=== PATIENT | female | born 1940 | race Caucasian/White ===

== ENCOUNTER 2017-06-27 15:04 | Inpatient (IN) ==
[~2017-06-27 15:04] MED LIST: *HR* Amiodarone Premix 360 MG/200 ML BAG IVC ONE; *HR* EPINEPHrine 1 MG/10 ML SYRINGE IVP ONE
--- NOTE | 2017-06-27 15:40 | Emergency Department Note ---
Disposition Clinical Impression: Rectal bleeding Anemia Qualifiers: Anemia type: unspecified type Qualified Code(s): D64.9 - Anemia, unspecified Disposition: Admitted As Inpatient Condition: Fair Referrals: Titi Garcia DO [Primary Care Provider] - Forms: ED Satisfaction Letter Time of Disposition: 17:17 GI Bleed HPI - General Chief complaint: ED Recheck/Abnormal Lab/Rx Stated complaint: rectal bleeding Time Seen by Provider: 06/27/17 15:21 Source: patient Mode of arrival: ambulatory Limitations: no limitations Nursing Notes Reviewed: Yes Vital Signs Reviewed: Yes - History of Present Illness HPI Narrative: 76-year-old female who comes in with dark tarry stools for the last several days and then bloody stools today. Saw family doctor and they apparently called the patient to come in as the hemoglobin was purported to be 7.2. Did review records she did have a colonoscopy that did show diverticular disease she also had polyps removed. She states she also had an AVM that was bleeding in the past. Pt Subjective Complaint: gross bloody stools Onset (ago): day(s) Consistency: intermittent Severity: moderate Improves with: nothing Worsens with: nothing Context: other Associated symptoms: Reports: abdominal pain (Diverticular disease mild) - Related Data Home Medications Medication Instructions Recorded Confirmed Baclofen [Lioresal] 10 mg PO TID PRN 05/10/17 05/10/17 Duloxetine HCl [Cymbalta] 120 mg PO DAILY 05/10/17 05/10/17 Metoprolol Succinate [Metoprolol 25 mg PO DAILY 05/10/17 05/10/17 Succinate] Oxybutynin Chloride [Ditropan Xl] 10 mg PO DAILY 05/10/17 05/10/17 Simvastatin [Zocor] 20 mg PO HS 05/10/17 05/10/17 hydroCHLOROthiazide 25 mg PO DAILY 05/10/17 05/10/17 [Hydrochlorothiazide] Allergies Allergy/AdvReac Type Severity Reaction Status Date / Time pregabalin [From Lyrica] Allergy Mild Confusion Verified 05/10/17 11:21 gabapentin Allergy Itching Verified 05/10/17 11:21 All systems ED: reviewed and negative except as stated. Constitutional: Denies: fever, chills, weakness, weight change Eyes: Denies: eye pain, eye discharge, vision change ENT ED: Denies: ear pain, throat pain, dental pain, hearing loss, epistaxis, congestion, dysphagia Cardiovascular: Denies: chest pain, palpitations, dyspnea on exertion, edema, syncope Respiratory: Denies: cough, dyspnea, wheezes, hemoptysis, stridor Gastrointestinal: Reports: abdominal pain. Denies: nausea, vomiting, diarrhea, constipation, hematemesis, melena, hematochezia Genitourinary: Denies: dysuria, frequency, hematuria, discharge Musculoskeletal: Denies: back pain, neck pain, arthralgia, myalgia Integumentary: Denies: rash, abrasion, lesions Neurological: Denies: headache, weakness, numbness, paresthesias, confusion, abnormal gait, vertigo Psychiatric: Denies: anxiety, depression, suicidal thoughts, homicidal thoughts , auditory hallucinations, visual hallucinations Endocrine: Denies: fatigue Hematological/Lymphatic: Denies: easy bleeding, easy bruising Allergic/Immunologic: Denies: facial swelling, urticaria Past Medical History - Past Medical History Medical history: Reports: COPD, coronary artery disease, fibromyalgia, GERD, hyperlipidemia, hypertension, osteoporosis Surgical history: Reports: heart valve replacement, hysterectomy, orthopedic, other Psychiatric history: Reports: anxiety, depression - Social History Smoking Status: Former smoker Alcohol use: Reports: none Drug use: Reports: none Physical Exam - General Limitations: no limitations General appearance: alert, in no apparent distress - Head Head exam: atraumatic, normocephalic, normal inspection - Eye Eye exam: Present: normal appearance, PERRL, EOMI - ENT ENT exam: normal exam, normal oropharynx, mucous membranes moist - Neck Neck exam: Present: normal inspection, full ROM, trachea midline - Chest Chest inspection: Present: normal inspection, symmetric chest wall rise - Respiratory Respiratory exam: Present: normal lung sounds bilaterally - Cardiovascular Cardiovascular exam: Present: regular rate, normal rhythm, normal heart sounds - Abdominal Exam Abdominal exam: Present: tenderness. Absent: guarding, rebound Abdominal tenderness: Present: LLQ - Rectal Exam Rectal exam: Present: normal rectal tone, bloody stool - Extremities Exam Extremities exam: Present: normal inspection, full ROM. Absent: tenderness, pedal edema - Expanded Lower Extremity Exam Neurovascular/Tendon exam: Absent: motor deficit, sensory deficit, tendon deficit Gait: observed and normal - Back Exam Back exam: Present: normal inspection, full ROM. Absent: tenderness - Neurological Exam Neurological exam: Present: alert, oriented X3 - Psychiatric Psychiatric exam: Present: normal affect, normal mood - Skin Skin exam: Present: warm, dry, intact, normal color Course - Reevaluation(s) Reevaluation #1: 76-year-old with a history of diverticulosis and previous AVM bleeding comes in with dark tarry stools or couple weeks and some blood today. Hemoglobin couple days ago 7.2 today was 6.6. We'll type and cross her for 2 units consultation obtained with the endoscopy/surgery they will see the patient in consultation patient will be admitted to the hospitalist. Time: 17:50 - Consultations Consultation #1: Discussed with , who will see the patient in consult. Time: 17:49 Consultation #2: Discussed with Dr. Pickard. Time: 17:49 Vital Signs Temperature 98.4 F 06/27/17 15:18 Pulse Rate 79 06/27/17 15:18 Respiratory Rate 18 06/27/17 15:18 Blood Pressure 104/67 06/27/17 15:18 O2 Sat by Pulse Oximetry 97 06/27/17 15:18 Temperature 98.4 F 06/27/17 15:18 Pulse Rate 78 06/27/17 17:18 Respiratory Rate 16 06/27/17 17:18 Blood Pressure 106/46 06/27/17 17:18 O2 Sat by Pulse Oximetry 96 06/27/17 17:18 Oxygen Delivery Oxygen Delivery Room Air GI Bleed - Lab Data Lab results reviewed: Yes I reviewed the patient's lab results. Result diagrams: 06/27/17 15:58 06/27/17 15:58 Lab Results 06/27/17 06/27/17 06/27/17 Range/Units 15:40 15:58 15:58 WBC 6.4 (4.3-11.1) K/mcL RBC 2.32 L (3.82-4.97) M/mcL Hgb 6.6 L (11.5-15.4) g/dL Hct 21.2 L (35.3-44.9) % MCV 91.4 (83.0-100.0) fL MCH 28.4 (28.0-33.3) pg MCHC 31.1 L (31.6-35.5) g/dL RDW 17.3 H (11.5-14.5) % Plt Count 144 (140-400) K/mcL MPV 10.6 (9.4-12.4) fL Immature Gran % 0.9 (0-4) % Seg Neutrophils % 61.5 % Lymphocytes % 26.9 % Monocytes % 9.6 % Eosinophils % 0.8 % Basophils % 0.3 % Neutrophils # 3.9 (1.6-8.9) K/mcL Lymphocytes # 1.7 (0.6-4.6) K/mcL Monocytes # 0.6 (0.0-1.3) K/mcL Eosinophils # 0.1 (0.0-0.6) K/mcL Basophils # 0.0 (0.0-0.2) K/mcL Nucleated RBCs/100 WBC 0.3 H (0) /100 WBC PT 12.6 H (9.4-12.1) Seconds INR 1.2 APTT 30.8 (26.0-36.0) Seconds Sodium (136-145) mEq/L Potassium (3.5-5.1) mEq/L Chloride (98-107) mEq/L Carbon Dioxide (23-29) mEq/L BUN (8-23) mg/dL Creatinine (0.60-1.20) mg/dL Est GFR ( Amer) (> 60) Est GFR (Non-Af Amer) (> 60) BUN/Creatinine Ratio (6-26) Glucose (70-105) mg/dL Calculated Osmolality (280-300) Calcium (8.6-10.3) mg/dL Stool Occult Blood Positive A (Negative) Specimen Rejected 06/27/17 06/27/17 Range/Units 15:58 15:58 WBC (4.3-11.1) K/mcL RBC (3.82-4.97) M/mcL Hgb (11.5-15.4) g/dL Hct (35.3-44.9) % MCV (83.0-100.0) fL MCH (28.0-33.3) pg MCHC (31.6-35.5) g/dL RDW (11.5-14.5) % Plt Count (140-400) K/mcL MPV (9.4-12.4) fL Immature Gran % (0-4) % Seg Neutrophils % % Lymphocytes % % Monocytes % % Eosinophils % % Basophils % % Neutrophils # (1.6-8.9) K/mcL Lymphocytes # (0.6-4.6) K/mcL Monocytes # (0.0-1.3) K/mcL Eosinophils # (0.0-0.6) K/mcL Basophils # (0.0-0.2) K/mcL Nucleated RBCs/100 WBC (0) /100 WBC PT (9.4-12.1) Seconds INR APTT (26.0-36.0) Seconds Sodium 137 (136-145) mEq/L Potassium 2.4 L* (3.5-5.1) mEq/L Chloride 99 (98-107) mEq/L Carbon Dioxide 29 (23-29) mEq/L BUN 18 (8-23) mg/dL Creatinine 1.24 H (0.60-1.20) mg/dL Est GFR ( Amer) 51 L (> 60) Est GFR (Non-Af Amer) 42 L (> 60) BUN/Creatinine Ratio 15 (6-26) Glucose 168 H (70-105) mg/dL Calculated Osmolality 290 (280-300) Calcium 8.7 (8.6-10.3) mg/dL Stool Occult Blood (Negative) Specimen Rejected Volume - Radiology Data Radiology results reviewed: Yes I reviewed the patient's radiology results. Abdomen/Pelvis CT 06/27/17 15:51 IMPRESSION: No evidence of acute abnormality in the abdomen or pelvis. Cirrhotic morphology of the liver. There is no ascites. Cholelithiasis. Colonic diverticulosis without evidence of diverticulitis. D/ / Oleksandr Do MD / Oleksandr Do MD Interpreting Provider: Oleksandr oD MD - EKG Data EKG attestation: Yes I reviewed and interpreted this EKG. EKG shows normal: sinus rhythm Rate: normal Rhythm: NSR [place]/QRS: LBBB When compared to previous EKG there are: no significant changes (07/05/2015) Interpretation: no acute changes Critical Care Time Critical Care Time: Yes Total Critical Care Time: 30 Attestation: The high probability of a clinically significant, sudden or life threatening deterioration of the [digestive] system(s) required my full and direct attention , intervention and personal management. The aggregate critical care time was [30 ] minutes. This time is in addition to time spent performing reported procedures but includes the following: [x] Data Review and interpretation [x] Patient assessment and monitoring of vital signs [x] Documentation [x] Medication orders and management
[2017-06-27 16:13] LABS: Basophils % 0.3 %; Eosinophils # 0.1 K/mcL (0.0-0.6); Eosinophils % 0.8 %; Hematocrit 21.2 % (35.3-44.9); Immature Granulocytes % 0.9 % (0-4); Lymphocytes # 1.7 K/mcL (0.6-4.6); Lymphocytes % 26.9 %; Mean Corpuscular HGB Conc 31.1 g/dL (31.6-35.5); Mean Corpuscular Hemoglobin 28.4 pg (28.0-33.3); Mean Corpuscular Volume 91.4 fL (83.0-100.0); Mean Platelet Volume 10.6 fL (9.4-12.4); Monocytes # 0.6 K/mcL (0.0-1.3); Monocytes % 9.6 %; Neutrophils # 3.9 K/mcL (1.6-8.9); Nucleated Red Blood Cells 0.3 /100 WBC (0); Platelet Count 144 K/mcL (140-400); Red Blood Count 2.32 M/mcL (3.82-4.97); Red Cell Distribution Width 17.3 % (11.5-14.5); Segmented Neutrophils % 61.5 %
[2017-06-27 16:18] LABS: INR 1.2; Prothrombin Time 12.6 Seconds (9.4-12.1)
[2017-06-27 16:21] LABS: Activated Partial Thrombo Time 30.8 Seconds (26.0-36.0)
[2017-06-27 16:31] LABS: Hemoglobin 6.6 g/dL (11.5-15.4)
[2017-06-27 16:33] LABS: Calcium 8.7 mg/dL (8.6-10.3); Potassium 2.4 mEq/L (3.5-5.1)
[2017-06-27] MEDS ORDERED: 0.9 % Sodium Chloride 1,000 ML ONE (16:59)
[2017-06-27] MEDS ORDERED: Potassium Chloride Elixir 20 MEQ/15 ML UDC PO ONE (17:28)
[2017-06-27] MEDS ORDERED: 0.9 % Sodium Chloride 500 ML IVC ONE (17:35)
[2017-06-27] MEDS ORDERED: Acetaminophen 325 MG TABLET PO PRN (19:37)
[2017-06-27] MEDS ORDERED: Ondansetron 4 MG/2 ML VIAL IVP PRN (19:37)
[2017-06-27] MEDS ORDERED: Naloxone 0.4 MG/ML INJ IVP PRN (19:37)
[2017-06-27] MEDS ORDERED: Potassium Chloride 40 MEQ, Lidocaine 1% 2 ML in D5% in Water 500 ML IVPB ONE (19:43)
--- NOTE | 2017-06-27 19:54 | Internal Med History&Physical ---
Date of Encounter: 06/27/17 Time of Encounter: 19:00 Assessment and Plan (1) Esophageal dysmotility Current visit: Yes Status: Acute Pt has recent barium swallow evaluation shows Severe esophageal dysmotility. Keep NPO now, consult speech therapy prior to start diet. (2) HTN (hypertension) Current visit: Yes Status: Acute BP is stable, hold HTN med due to acute GI bleed. Qualifiers: Hypertension type: essential hypertension Qualified Code(s): I10 - Essential (primary) hypertension (3) CAD (coronary artery disease) Current visit: Yes Status: Acute Stable, will resume home meds as pt resume diet. Qualifiers: Coronary Disease-Associated Artery/Lesion type: [place] artery [place] vs. transplanted heart: [place] heart Associated angina: without angina Qualified Code(s): I25.10 - Atherosclerotic heart disease of [place] coronary artery without angina pectoris (4) Hypokalemia Current visit: Yes Status: Acute Will give supplement and monitor potassium level (5) Right upper quadrant abdominal pain Current visit: Yes Status: Acute Pt said she has gall stone. Will repeat US liver/gall bladder to evaluate the status. Pt has no fever, leukocytosis, or jaundice now. (6) DVT prophylaxis Current visit: Yes Status: Acute EPCD, no AC due to GI bleed (7) Anemia Current visit: Yes Status: Acute Due to GI bleed. Will give 2 units of PRBC. Qualifiers: Anemia type: unspecified type Qualified Code(s): D64.9 - Anemia, unspecified (8) Rectal bleeding Current visit: Yes Status: Acute Place pt on NPO, IVF, iv PPI. Surgical consult informed by ER. - Check vitals every 2 hours - H/H every 6 hours. (9) ARISTIDES (acute kidney injury) Current visit: Yes Status: Acute Mildly elevated Cr from baseline, probably due to GI bleed, give IVF and f/u renal function. Internal Medicine - H&P: HPI Chief complaint: Rectal bleed Admitted From: Home Plans for Post Hospital Care: Home History of present illness: Ms. Chilel is a 76 year old female with hx of HTN, s/p bio aortic valve replacement, CAD s/p stent, Hx of AVM and GI bleed, present to ER for rectal bleed for several months. Pt said she noticed fresh bleed per rectal but thought it is due to hemorrhoid. Pt has swallowing choking symptoms and had barium study 4 days ago. She found blood in stool although the stool color turns white due to barium. Pt has mild dizziness and exertional SOB. She also has abd cramping sometimes. In ER, she was found Hgb 6.6, dropped from 11.5 in Apr 2017, FOBT positive. Pt was admitted as GI bleed. Past Med Surg Social Fam HX - Past Medical History Medical history: COPD, coronary artery disease, fibromyalgia, GERD, hyperlipidemia, hypertension, osteoporosis Psychiatric history: anxiety, depression - Past Surgical History Surgical History: heart valve replacement, hysterectomy, orthopedic, other - Social History Smoking Status: Former smoker Alcohol use: none Drug use: none - Family History Mother History Unknown: Yes Internal Medicine - H&P: Meds Baclofen [Lioresal] 10 mg PO TID PRN 05/10/17 [History] Duloxetine HCl [Cymbalta] 120 mg PO DAILY 05/10/17 [History] Metoprolol Succinate [Metoprolol Succinate] 25 mg PO DAILY 05/10/17 [History] Oxybutynin Chloride [Ditropan Xl] 10 mg PO DAILY 05/10/17 [History] Simvastatin [Zocor] 20 mg PO HS 05/10/17 [History] hydroCHLOROthiazide [Hydrochlorothiazide] 25 mg PO DAILY 05/10/17 [History] Aspirin 06/27/17 [History] 3 Allergy/AdvReac Type Severity Reaction Status Date / Time pregabalin [From Lyrica] Allergy Mild Confusion Verified 05/10/17 11:21 gabapentin Allergy Itching Verified 05/10/17 11:21 All Systems PM: A 10-system review of systems was performed and is negative for pertinent findings except as documented above in the HPI. - Constitutional Vitals: Temp Pulse Resp BP Pulse Ox 98.5 F 81 14 126/71 98 06/27/17 19:22 06/27/17 19:22 06/27/17 19:22 06/27/17 19:22 06/27/17 19:22 General appearance: Present: A&O X 3, no acute distress, answers questions appropriately - Head Head exam: Present: atraumatic, normocephalic - Eye Eye exam: Present: PERRL, conjuntiva pink, sclera anicteric Pupils: Present: PERRL - Neck Neck exam general surgery: Present: supple, trachea midline. Absent: lymphadenopathy - Respiratory Respiratory exam: Present: CTAB. Absent: accessory muscle use, rales, rhonchi, wheezes - Cardiovascular Cardiovascular exam: Present: RRR, +S1, +S2. Absent: diastolic murmur, gallop, rubs, systolic murmur - GI/Abdominal GI/Abdominal exam: Present: normal bowel sounds, soft, tenderness (Mild RUQ tenderness w/o rebound), no peritoneal signs. Absent: distended - Extremities Exam Extremities exam: Present: warm, radial pulses palpable and symmetrical. Absent : calf tenderness, cyanotic, pedal edema - Neurological Exam Neurological exam: Present: CN II-XII intact, oriented X3, no focal deficits. Absent: pronater drift, facial droop, speech deficit - Skin Skin exam: Present: dry, intact Internal Med - H&P Results - Labs CBC & Chem 7: 06/27/17 15:58 06/27/17 15:58 - EKG Data -: EKG Interpreted by Myself EKG shows normal: sinus rhythm (LBBB) - EKG Data Prior EKG available for review: yes When compared to previous EKG: there is no significant change
[2017-06-27 20:17] LABS: Hematocrit 19.6 % (35.3-44.9)
[2017-06-27] MEDS: 0.9 % Sodium Chloride w KCl 20 MEQ/1,000 ML MLS IVC SCH (22:30)
[2017-06-27] MEDS: *HR* HYDROcodone/Acet 5/325 mg TABLET PO PRN (22:32)
[2017-06-28] MEDS ORDERED: 0.9 % Sodium Chloride 250 ML ONE ×2 (00:02→04:05)
[2017-06-28] MEDS: *HR* HYDROcodone/Acet 5/325 mg TABLET PO PRN ×4 (01:45→22:45)
[2017-06-28] MEDS ORDERED: *HR* Morphine 2 MG/ML SYRINGE IVP ONE (02:27)
[2017-06-28] MEDS ORDERED: Ipratropium/Albuterol Neb 3 ML IH ONE (02:42)
[2017-06-28] MEDS ORDERED: Furosemide 20 MG/2 ML VIAL IVP ONE (02:42)
[2017-06-28] MEDS: Pantoprazole 40 MG VIAL IVP SCH ×2 (05:57→19:50)
[2017-06-28] MEDS: Potassium Chloride Elixir 20 MEQ/15 ML UDC PO SCH ×2 (08:35→12:19)
[2017-06-28 08:37] LABS: Basophils % 0.5 %; Eosinophils % 0.7 %; Hematocrit 28.2 % (35.3-44.9); Immature Granulocytes % 0.8 % (0-4); Lymphocytes % 16.3 %; Mean Corpuscular HGB Conc 31.9 g/dL (31.6-35.5); Mean Corpuscular Hemoglobin 28.5 pg (28.0-33.3); Mean Corpuscular Volume 89.2 fL (83.0-100.0); Monocytes # 0.5 K/mcL (0.0-1.3); Neutrophils # 4.4 K/mcL (1.6-8.9); Platelet Count 120 K/mcL (140-400); Red Blood Count 3.16 M/mcL (3.82-4.97); Red Cell Distribution Width 15.9 % (11.5-14.5); Segmented Neutrophils % 72.7 %
--- NOTE | 2017-06-28 08:48 | General Surgery Consult Note ---
Date of Encounter: 06/28/17 Time of Encounter: 08:46 History of Present Illness Consult date: 06/28/17 Reason for consult: other (GI bleed) Requesting physician: Savage Almanzar History of present illness: Ms. Chilel is a 76 year old white female who presented to ED for rectal bleed for several months but recently noticed bright red blood per rectum and attributed it to hemorrhoid. Past Med Surg Social Fam HX - Past Medical History Medical history: COPD, coronary artery disease, fibromyalgia, GERD, hyperlipidemia, hypertension, osteoporosis Psychiatric history: anxiety, depression - Past Surgical History Surgical History: heart valve replacement, hysterectomy, orthopedic, other - Social History Smoking Status: Former smoker Alcohol use: none Drug use: none - Family History Mother History Unknown: Yes Living Status: Age at : 50 Cause of : CT Father Living Status: Age at : 83 Medications and Allergies Baclofen [Lioresal] 10 mg PO TID PRN 05/10/17 [History] Duloxetine HCl [Cymbalta] 120 mg PO DAILY 05/10/17 [History] Metoprolol Succinate [Metoprolol Succinate] 25 mg PO DAILY 05/10/17 [History] Oxybutynin Chloride [Ditropan Xl] 10 mg PO DAILY 05/10/17 [History] Simvastatin [Zocor] 20 mg PO HS 05/10/17 [History] hydroCHLOROthiazide [Hydrochlorothiazide] 25 mg PO DAILY 05/10/17 [History] Aspirin 06/27/17 [History] 3 Allergy/AdvReac Type Severity Reaction Status Date / Time pregabalin [From Lyrica] Allergy Mild Confusion Verified 05/10/17 11:21 gabapentin Allergy Itching Verified 05/10/17 11:21 Review of Systems All systems PM: A 10-system review of systems was performed and is negative for pertinent findings except as documented above in the HPI. General Surgery Exam Initial Vital Signs Temp Pulse Resp BP Pulse Ox 98.4 F 79 18 104/67 97 06/27/17 15:18 06/27/17 15:18 06/27/17 15:18 06/27/17 15:18 06/27/17 15:18 Exam Initial Vital Signs Temp Pulse Resp BP Pulse Ox 98.4 F 79 18 104/67 97 06/27/17 15:18 06/27/17 15:18 06/27/17 15:18 06/27/17 15:18 06/27/17 15:18 Results - Labs 06/27/17 20:09 06/27/17 15:58 Abnormal lab results RBC 2.32 M/mcL (3.82-4.97) L 06/27/17 15:58 Hgb 6.0 g/dL (11.5-15.4) L* 06/27/17 20:09 Hct 19.6 % (35.3-44.9) L 06/27/17 20:09 MCHC 31.1 g/dL (31.6-35.5) L 06/27/17 15:58 RDW 17.3 % (11.5-14.5) H 06/27/17 15:58 Nucleated RBCs/100 WBC 0.3 /100 WBC (0) H 06/27/17 15:58 PT 12.6 Seconds (9.4-12.1) H 06/27/17 15:58 Potassium 2.4 mEq/L (3.5-5.1) L* 06/27/17 15:58 Creatinine 1.24 mg/dL (0.60-1.20) H 06/27/17 15:58 Est GFR ( Amer) 51 (> 60) L 06/27/17 15:58 Est GFR (Non-Af Amer) 42 (> 60) L 06/27/17 15:58 Glucose 168 mg/dL (70-105) H 06/27/17 15:58 POC Glucose 165 (58-89) H 06/28/17 05:55 Stool Occult Blood Positive (Negative) A 06/27/17 15:40 All other labs normal. Consult Discharge Plan - Plan Referrals: Titi Garcia DO [Primary Care Provider] -
[2017-06-28 09:22] LABS: BUN/Creatinine Ratio 14 (6-26); Blood Urea Nitrogen 15 mg/dL (8-23); Calcium 8.2 mg/dL (8.6-10.3); Carbon Dioxide 25 mEq/L (23-29); Chloride 106 mEq/L (98-107); Glucose 142 mg/dL (70-105); Magnesium 1.6 mg/dL (1.6-2.6); Osmolality,Calculated 293 (280-300); Potassium 2.9 mEq/L (3.5-5.1); Sodium 140 mEq/L (136-145); eGFR For African Americans > 60 (> 60); eGFR For Non-African Americans 51 (> 60)
--- NOTE | 2017-06-28 09:47 | Electrocardiograph Report ---
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
[2017-06-28 12:41] LABS: Basophils % 0.3 %; Eosinophils % 0.5 %; Hematocrit 28.3 % (35.3-44.9); Hemoglobin 9.1 g/dL (11.5-15.4); Immature Granulocytes % 1.3 % (0-4); Lymphocytes # 0.7 K/mcL (0.6-4.6); Lymphocytes % 10.7 %; Mean Corpuscular HGB Conc 32.2 g/dL (31.6-35.5); Mean Corpuscular Hemoglobin 28.8 pg (28.0-33.3); Mean Corpuscular Volume 89.6 fL (83.0-100.0); Monocytes # 0.4 K/mcL (0.0-1.3); Monocytes % 6.1 %; Neutrophils # 4.9 K/mcL (1.6-8.9); Nucleated Red Blood Cells 0.3 /100 WBC (0); Platelet Count 112 K/mcL (140-400); Red Blood Count 3.16 M/mcL (3.82-4.97); Red Cell Distribution Width 16.3 % (11.5-14.5); Segmented Neutrophils % 81.1 %
[2017-06-28] MEDS ORDERED: ALPRAZolam 0.25 MG TABLET PO PRN (12:46)
[2017-06-28] MEDS: 0.9 % Sodium Chloride w KCl 20 MEQ/1,000 ML MLS IVC SCH (12:56)
[2017-06-28 12:58] LABS: BUN/Creatinine Ratio 13 (6-26); Blood Urea Nitrogen 14 mg/dL (8-23); Calcium 8.6 mg/dL (8.6-10.3); Carbon Dioxide 25 mEq/L (23-29); Chloride 106 mEq/L (98-107); Glucose 168 mg/dL (70-105); Magnesium 1.7 mg/dL (1.6-2.6); Osmolality,Calculated 296 (280-300); Potassium 3.2 mEq/L (3.5-5.1); Sodium 141 mEq/L (136-145); eGFR For African Americans > 60 (> 60); eGFR For Non-African Americans 51 (> 60)
--- NOTE | 2017-06-28 13:20 | Anesthesia Evaluation PreOp ---
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 (depression) Other Medical History: Renal (ARISTIDES), GERD Anesthesia History: No Prior Anesthetic Complications, Past Anesthesia (Heart valve replacement( AVR), GEO, ortho) Alcohol Use: none Drug use: none Medications and Allergies Baclofen [Lioresal] 10 mg PO TID PRN 05/10/17 [History] Duloxetine HCl [Cymbalta] 120 mg PO DAILY 05/10/17 [History] Metoprolol Succinate [Metoprolol Succinate] 25 mg PO DAILY 05/10/17 [History] Oxybutynin Chloride [Ditropan Xl] 10 mg PO DAILY 05/10/17 [History] Simvastatin [Zocor] 20 mg PO HS 05/10/17 [History] hydroCHLOROthiazide [Hydrochlorothiazide] 25 mg PO DAILY 05/10/17 [History] Aspirin Enteric Coated [Aspirin EC] 81 mg PO DAILY 06/27/17 [History] 3 Allergy/AdvReac Type Severity Reaction Status Date / Time pregabalin [From Lyrica] Allergy Mild Confusion Verified 05/10/17 11:21 gabapentin Allergy Itching Verified 05/10/17 11:21 - Meds/Allergy Pre-op Review Medications Reviewed: Yes Allergies Reviewed: Yes Beta Blockers on Current Med List: No Anesthesia Results - Labs 06/28/17 12:21 06/28/17 12:21 - Imaging Additional studies: echo: Impressions: Normal left ventricular systolic function, LVEF 60%. Moderate concentric left ventricular hypertrophy. Mild left ventricular diastolic dysfunction. Normal right ventricular size and function. Mildly dilated left atrium. Normal bioprosthetic aortic valve function. No evidence of stenosis or regurgitation. Moderate mitral annular calcification. Mild mitral stenosis. No evidence of pulmonary hypertension. Anesthesia Exam Selected Entries 06/28/17 07:04 Temperature 98.7 F Pulse Rate 76 Respiratory Rate 20 Blood Pressure 145/76 Blood Pressure Mean 99 O2 Sat by Pulse Oximetry 92 Weight: 83kg NPO (# of Hours): 8 - HEENT Pupil (Motor): EOMI Mallampati: II Teeth: Edentulous Oral Opening: Greater than 3 - FARM MANAGEMENT SUPERVISOR LOC: Oriented FARM MANAGEMENT SUPERVISOR Motor: Normal RUE, Normal LUE, Normal RLE, Normal LLE, Normal Face FARM MANAGEMENT SUPERVISOR Sensory: Normal: RUE, LUE, RLE, LLE, Face - Cardiac Rhythm: Regular Murmur: None - Pulmonary Breath Sounds: bilateral Clear Anesthesia Assess/Plan ASA Score: 3 Modified [place] Scale for Level of Consciousness: Cooperative, oriented, and tranquil Anesthetic Plan: MAC Monitoring Plan: Standard Monitors Recovery Plan: PACU (agrees to MAC)
[2017-06-28] MEDS ORDERED: *HR* Propofol 200 MG/20 ML VIAL IVP ONE ×2 (14:28→14:51)
[2017-06-28] MEDS ORDERED: Lidocaine -MPF 2% 2 ML VIAL ONE (14:28)
--- NOTE | 2017-06-28 15:57 | Internal Med Progress Note ---
Date of Encounter: 06/28/17 Time of Encounter: 15:55 - Assessment and plan (1) Lower GI bleed Current Visit: Yes Status: Acute Assessment and plan: Patient was anemic with hemoglobin <7 on admission, status post 2 units PRBC. GI following, patient currently in EGD. Will await results and recommendations. Continue to monitor H&H q6H and transfuse as needed. Currently patient is hemodynamically stable. (2) Hypokalemia Current Visit: Yes Status: Acute Assessment and plan: Patient currently NPO, we are giving exception of KCL elixer. Will continue to supplement. Keep patient on telemetry and monitor for abnormalities. Placing Kcl in IV fluids as well. (3) ARISTIDES (acute kidney injury) Current Visit: Yes Status: Acute Assessment and plan: Improved, likely was from hypoperfusion. (4) Anemia Current Visit: Yes Status: Acute Qualifiers: Anemia type: unspecified type Qualified Code(s): D64.9 - Anemia, unspecified (5) Right upper quadrant abdominal pain Current Visit: Yes Status: Acute Assessment and plan: RUQ showed cholelithiasis without evidence of cholecystitis. Has some findings suggestive of liver cirrhosis. (6) HTN (hypertension) Current Visit: Yes Status: Acute Qualifiers: Hypertension type: essential hypertension Qualified Code(s): I10 - Essential (primary) hypertension (7) Esophageal dysmotility Current Visit: Yes Status: Acute Assessment and plan: Barium study for dysphagia. (8) CAD (coronary artery disease) Current Visit: Yes Status: Acute Qualifiers: Coronary Disease-Associated Artery/Lesion type: [place] artery [place] vs. transplanted heart: [place] heart Associated angina: without angina Qualified Code(s): I25.10 - Atherosclerotic heart disease of [place] coronary artery without angina pectoris (9) COPD (chronic obstructive pulmonary disease) Current Visit: Yes Status: Acute Assessment and plan: Duo nebs as needed. Qualifiers: COPD type: unspecified COPD Qualified Code(s): J44.9 - Chronic obstructive pulmonary disease, unspecified (10) DVT prophylaxis Current Visit: Yes Status: Acute - Subjective Interval history: Patient presented for rectal bleeding, SOB, and light headedness. She does complain of RUQ tenderness. She has been trasnfused 2 units of PRBC after hemoglobin found to be 6.6. Currently patient states she feels a little better but still lightheaded. She denies chest pain. - Constitutional Vitals: Temp Pulse Resp BP Pulse Ox 98.7 F 89 18 151/67 98 06/28/17 07:04 06/28/17 14:22 06/28/17 14:22 06/28/17 14:22 06/28/17 14:22 General appearance: Present: A&O X 3, no acute distress, answers questions appropriately Exam: CVS: RRR Lungs: CTAB Abd; soft, + RUQ tenderness, non-distended, non-rigid. Ext: no edema Internal Medicine: Result - Labs CBC & Chem 7: 06/28/17 12:21 06/28/17 12:21 Labs: Short CBC 06/27/17 06/28/17 06/28/17 Range/Units 20:09 08:10 12:21 WBC 6.0 6.1 (4.3-11.1) K/mcL Hgb 6.0 L* 9.0 L D 9.1 L (11.5-15.4) g/dL Hct 19.6 L 28.2 L 28.3 L (35.3-44.9) % Plt Count 120 L 112 L (140-400) K/mcL Neutrophils # 4.4 4.9 (1.6-8.9) K/mcL BMP 06/28/17 06/28/17 08:10 12:21 Sodium 140 141 Potassium 2.9 L 3.2 L Chloride 106 106 Carbon Dioxide 25 25 BUN 15 14 Creatinine 1.04 1.04 Glucose 142 H 168 H Calcium 8.2 L 8.6 - ABG Interpretation ABG results: PT/INR, D-dimer PT 12.6 Seconds (9.4-12.1) H 06/27/17 15:58 - Impressions Impressions Abdomen Ultrasound 06/28/17 13:00 IMPRESSION: 1. Cholelithiasis. No evidence of cholecystitis. 2. Diffusely heterogeneous liver echotexture suggestive of cirrhosis. 3. Multiple renal hypoechoic masses, possibly complicated or complex cysts. 4. Right adrenal adenoma. D/ / 06/28/2017 14:08:55 Guero Mares MD / onel Interpreting Provider: Guero Mares MD Consult Discharge Plan - Plan Referrals: Titi Garcia DO [Primary Care Provider] -
[2017-06-28] MEDS: Ipratropium/Albuterol Neb 3 ML IH SCH ×3 (16:38→23:19)
--- NOTE | 2017-06-28 21:52 | Gastroenterology Consult Note ---
Date of Encounter: 06/28/17 Time of Encounter: 13:00 - Assessment and plan (1) Anemia Current Visit: Yes Status: Acute Assessment and plan: pt with acute on ch anemia . Hb was 8.5 09/23/15 and was 11.5 on 04/22/17 but now down to 6. Does has Hx of rectal bleeding but for many months even before C- scope. Doubt has polypectomy bleed as colon was > 6 weeks ago . 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 Pt to f/u with us as out pt - Time Spent With Patient Total time spent is greater than 50% in coordination of care (as documented) at patient's floor/unit and/or counseling patient: GI History of Present Illness - Data of Consult Consult date: 06/28/17 Requesting Physician: Yamil Larkin MD - Consult Narrative Reason for consult: Anemia, Blood in stool History of present illness: Ms. Chilel is a 76 year old female with hx of HTN, s/p bio aortic valve replacement, CAD s/p stent, Hx of AVM and GI bleed, present to ER for rectal bleed for several months. Had a colon done by Dr Linares In April with removal of 6 mm of polyp. Per pt no diff or change in her black stool that she has on and off. No abd pain. Was felling symtomatic due to anemia lately Past Med Surg Social Fam HX - Past Medical History Medical history: COPD, coronary artery disease, fibromyalgia, GERD, hyperlipidemia, hypertension, osteoporosis Psychiatric history: anxiety, depression - Past Surgical History Surgical History: heart valve replacement, hysterectomy, orthopedic, other - Social History Smoking Status: Former smoker Alcohol use: none Drug use: none - Family History Mother History Unknown: Yes Living Status: Age at : 50 Cause of : SD Father Living Status: Age at : 83 Review of Systems: GI: as per [place] GENERAL: some chills EYES: denies yellow discoloration CARDIO: palpitations with exertions RESP: had Shortness of breath with exertion : denies change in color of urine NEURO: generalized weakness HEME: Denies any bruising MS: denies joint pain, joint swelling or back pain. DERM: denies rash or itching - Constitutional Vitals: Temp Pulse Resp BP Pulse Ox 98.7 F 98 16 156/76 97 06/28/17 20:59 06/28/17 20:59 06/28/17 20:59 06/28/17 20:59 06/28/17 20:59 CONSTITUTIONAL:~alert, no acute distress.~HEAD:~normocephalic.~EYES:~no jaundice.~NECK:~no obvious swelling.~HEART:~regular rate and rhythm, positive murmur with added sound of artificial valve.~LUNGS:~bilateral good air entry.~ ABDOMEN:~non distended, soft, non tander, no masses pulpable, no organomegaly.~ RECTAL EXAM:~No mass, stool are brown.~EXTREMITIES:~no clubbing, cyanosis or edema.~SKIN:~no stigmata of chronic liver disease.~NEUROLOGIC:~no obvious focal defect.~~~~ Results - Labs CBC & Chem 7: 06/28/17 12:21 06/28/17 12:21 Labs: Last Result Calcium 8.6 mg/dL (8.6-10.3) 06/28/17 12:21 Stool Occult Blood Positive (Negative) A 06/27/17 15:40 Entire Visit Hgb 9.1 g/dL (11.5-15.4) L 06/28/17 12:21 Hct 28.3 % (35.3-44.9) L 06/28/17 12:21 PT 12.6 Seconds (9.4-12.1) H 06/27/17 15:58 - ABG ABG results: PT/INR, D-dimer PT 12.6 Seconds (9.4-12.1) H 06/27/17 15:58 - Impressions Impressions Abdomen Ultrasound 06/28/17 13:00 IMPRESSION: 1. Cholelithiasis. No evidence of cholecystitis. 2. Diffusely heterogeneous liver echotexture suggestive of cirrhosis. 3. Multiple renal hypoechoic masses, possibly complicated or complex cysts. 4. Right adrenal adenoma. D/ / 06/28/2017 14:08:55 Guero Mares MD / onel Interpreting Provider: Guero Mares MD Consult Discharge Plan - Plan Referrals: Titi Garcia DO [Primary Care Provider] -
[2017-06-28] MEDS ORDERED: ALPRAZolam 0.5 MG TABLET PO PRN (22:10)
[2017-06-28] MEDS ORDERED: Melatonin 3 MG TABLET PO PRN (22:10)
[2017-06-29] MEDS: *HR* Morphine 2 MG/ML SYRINGE IVP PRN (04:16)
[2017-06-29] MEDS: Ipratropium/Albuterol Neb 3 ML IH SCH ×6 (04:30→23:36)
[2017-06-29 05:24] LABS: Basophils % 0.2 %; Eosinophils % 0.4 %; Hematocrit 28.8 % (35.3-44.9); Hemoglobin 9.1 g/dL (11.5-15.4); Immature Granulocytes % 1.7 % (0-4); Lymphocytes # 1.5 K/mcL (0.6-4.6); Mean Corpuscular HGB Conc 31.6 g/dL (31.6-35.5); Mean Corpuscular Hemoglobin 28.3 pg (28.0-33.3); Mean Corpuscular Volume 89.7 fL (83.0-100.0); Mean Platelet Volume 11.2 fL (9.4-12.4); Monocytes # 0.8 K/mcL (0.0-1.3); Monocytes % 9.1 %; Neutrophils # 6.4 K/mcL (1.6-8.9); Nucleated Red Blood Cells 0.2 /100 WBC (0); Platelet Count 130 K/mcL (140-400); Red Blood Count 3.21 M/mcL (3.82-4.97); Red Cell Distribution Width 16.6 % (11.5-14.5); Segmented Neutrophils % 71.6 %
[2017-06-29] MEDS ORDERED: *HR* Metoprolol 5 MG/5 ML VIAL IVP ONE ×2 (05:52→05:54)
[2017-06-29] MEDS ORDERED: Nitroglycerin 0.4 MG TAB.SUBL SL ONE (06:05)
[2017-06-29] MEDS ORDERED: Furosemide 40 MG/4 ML VIAL ONE (06:24)
[2017-06-29] MEDS ORDERED: methylPREDNISolone 125 MG/2 ML VIAL ONE (06:25)
[2017-06-29] MEDS ORDERED: methylPREDNISolone 125 MG/2 ML VIAL IVP ONE (06:27)
[2017-06-29 06:38] LABS: VBG HCO3 24 mEq/L (21-27); VBG PCO2 59 mmHg (41-51); VBG PH 7.22 pH Units (7.32-7.42); VBG PO2 113 mmHg (25-50)
[2017-06-29] MEDS ORDERED: Furosemide 40 MG/4 ML VIAL IVP ONE ×2 (06:38→16:55)
[2017-06-29] MEDS: Pantoprazole 40 MG VIAL IVP SCH ×2 (06:58→17:25)
[2017-06-29 07:15] LABS: ABG Base Excess -5 mEq/L (-2 to 3); ABG HCO3 26 mEq/L (21-27); ABG Oxygen Saturation 92 % (95-98); ABG PCO2 90 mmHg (35-45); ABG PH 7.07 pH Units (7.32-7.45); ABG PO2 92 mmHg (85-104); ABG TCO2 29 mEq/L (20-26)
[2017-06-29 07:33] LABS: ABG Base Excess -7 mEq/L (-2 to 3); ABG HCO3 24 mEq/L (21-27); ABG Oxygen Saturation 87 % (95-98); ABG PCO2 75 mmHg (35-45); ABG PH 7.11 pH Units (7.32-7.45); ABG PO2 72 mmHg (85-104); ABG TCO2 26 mEq/L (20-26); Blood Gas Modality ASSIST CONTROL; Blood Gas PEEP 8 cm H2O; Blood Gas Respiration Rate 14; Blood Gas VT 400 cc
--- NOTE | 2017-06-29 07:54 | Event Note ---
Date of Encounter: 06/29/17 Time of Encounter: 05:45 Rapid respond called at 5:43am. Nurse noticed pt has A Fib with RVR on monitoring. I present at bedside immediately. Pt has HR around 150, EKG shows A Fib with RVR and LBBB, pt has previous EKG shows sinus rhytms and LBBB. Pt shows acute respiratory distress. Check BP 190/110, BS 180, but patient has desaturation with SpO2 70% on NC O2. Pt has b/l scattered wheezes. Give metoprolol 5 mg try to correct the RVR, Pt's HR get down to 120 after treatment. Verbal order duoneb, CXR, NTG SL, lasix 40mg iv, and solumendrol 60mg ivp. Pt has received NTG SL, lasix, duoneb, and solumendrol. Pt's respiratory distress not improve after treatment. Pt need 100% O2 (non-rebreathing) to maintain SpO2 97%. As pt has severe increased hypoxia and tachycardia, PE was suspected and decide to have a CTA stat to r/o acute PE (Cr 1.04) . Pt was planned to transfer to CT for CTA. Before we transfer pt down, her BP was around 170/100, SpO2 97% on 100% O2, pt has respiratory distress but can be wake up by verbal stimulation. Pt was transferred to CT with bedside monitoring, accompanied by respiratory therapist, GABRIELLE Fairbanks, I follow them but took stairs. When I met them in radiology department, I was told that pt is blue and need to be brought to ER for intubation. Pt was nonresponsive and radiation monitor shows bradycardia, pt looks cyanosis. I noticed the bag connected with the the non- rebreathing mask is totally collapsed, apparently pt didn't receive O2 during the transportation. I ask the respiratory therapist to turn on the O2 tank immediately. However, CPR has to be started because severe bradycardia on monitoring and no pulse. Pt resumed pulse with CPR and was intubated (see code blue documentation for details, nigel blue run by ER physician). Pt was placed on ventilator and BP is stable, still need 100% FiO2 to maintain SpO2 93-94%. I have verbally signed out to cargo agent and pt will kept in ICU for further management.
--- NOTE | 2017-06-29 08:08 | Emergency Department Note ---
START Narrative - START START: My only involvement in this patient's care was during the resuscitation of an acute cardiac arrest. Patient is currently being seen and evaluated on the inpatient setting. During transport down to the CAT scan machine patient coded. Patient was brought to the emergency room secondary to the ER being the only code bed in the hospital. Patient was resuscitated aggressively. Intubation was completed by the resident physician Dr. Jimenez under my direct supervision. Direct laryngoscopy was utilized with 20 of etomidate and 100 of Rocurronium. Patient had 1 clean attendant with the intubation with no complications. Tube was secured at the lip at 21 cm. Bilateral ventilation was noted. Pulse ox was maintained at 90-94% after the intubation was completed. Confirmatory chest x-ray was resulted. Because of the patient's critical medical condition and transition between floors I determined that it was necessary to place a definitive IV line. A right femoral central line was placed without any complication with the resident physician completing the procedure. Patient sustained the procedure without any complication. I was directly present during the medically necessary process. Direct guidewire utilization. Using the Seldinger technique. Triple-lumen 16 cm catheter was placed in the right groin without any complication. The blood flow was noted in all 3 catheter tips. Further Were applied. Patient had no other complications that time. The inpatient providers will complete the course of care. Again, my only involvement with this patient's care is the cardiac resuscitations with laryngeal intubation and central venous access in the right groin along with ACLS code. I have no other direct involvement with the patient 's care at this time.
[2017-06-29] MEDS ORDERED: Lacri-Lube 3.5 GM TUBE BOTH EYES PRN (08:12)
[2017-06-29] MEDS ORDERED: Naloxone 0.4 MG/ML INJ IVP PRN (08:14)
[2017-06-29] MEDS: FentaNYL (PF) 1,000 MCG in 0.9 % Sodium Chloride 80 ML IVC SCH ×2 (08:45→19:55)
[2017-06-29 09:21] LABS: ABG Base Excess 2 mEq/L (-2 to 3); ABG HCO3 26 mEq/L (21-27); ABG Oxygen Saturation 99 % (95-98); ABG PCO2 37 mmHg (35-45); ABG PH 7.46 pH Units (7.32-7.45); ABG PO2 123 mmHg (85-104); ABG TCO2 28 mEq/L (20-26)
[2017-06-29 09:41] LABS: Albumin 3.7 g/dL (3.5-5.7); Albumin/Globulin Ratio 1.2 (1.1-2.2); Bilirubin,Total 1.1 mg/dL (0.3-1.0); Calcium 8.9 mg/dL (8.6-10.3); Globulin 3.2 g/dL (2.4-3.5); Magnesium 1.9 mg/dL (1.6-2.6); Potassium 3.9 mEq/L (3.5-5.1); Thyroid Stimulating Hormone 0.819 mcIU/mL (0.340-5.600); Total Protein 6.9 g/dL (6.4-8.9)
[2017-06-29 10:06] LABS: Basophils % 0.1 %; Eosinophils % 0.1 %; Hematocrit 28.5 % (35.3-44.9); Hemoglobin 8.9 g/dL (11.5-15.4); Immature Granulocytes % 1.2 % (0-4); Lymphocytes # 0.3 K/mcL (0.6-4.6); Lymphocytes % 2.4 %; Mean Corpuscular HGB Conc 31.2 g/dL (31.6-35.5); Mean Corpuscular Hemoglobin 28.6 pg (28.0-33.3); Mean Corpuscular Volume 91.6 fL (83.0-100.0); Monocytes # 0.9 K/mcL (0.0-1.3); Monocytes % 6.6 %; Nucleated Red Blood Cells 0.2 /100 WBC (0); Platelet Count 138 K/mcL (140-400); Red Blood Count 3.11 M/mcL (3.82-4.97); Red Cell Distribution Width 16.6 % (11.5-14.5); Segmented Neutrophils % 89.6 %
[2017-06-29 10:08] LABS: Neutrophils # 12.5 K/mcL (1.6-8.9)
[2017-06-29 10:34] LABS: Adenovirus Not Detected (Not Detect); Bordetella Pertussis Not Detected (Not Detect); Chlamydophila pneumoniae Not Detected (Not Detect); Coronavirus 229E Not Detected (Not Detect); Coronavirus HKU1 Not Detected (Not Detect); Coronavirus NL63 Not Detected (Not Detect); Coronavirus OC43 Not Detected (Not Detect); Human Metapneumovirus Not Detected (Not Detect); Human Rhinovirus/Enterovirus Not Detected (Not Detect); Influenza A Subtype 2009 H1 Not Detected (Not Detect); Influenza A Untypeable Not Detected (Not Detect); Influenza B Not Detected (Not Detect); Mycoplasma pneumoniae Not Detected (Not Detect); Parainfluenza Virus 1 Not Detected (Not Detect); Parainfluenza Virus 2 Not Detected (Not Detect); Parainfluenza Virus 3 Not Detected (Not Detect); Parainfluenza Virus 4 Not Detected (Not Detect); Respiratory Syncytial Virus Not Detected (Not Detect)
[2017-06-29 10:59] LABS: Magnesium 1.6 mg/dL (1.6-2.6)
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
[2017-06-29 11:24] LABS: Albumin 3.1 g/dL (3.5-5.7); Albumin/Globulin Ratio 1.1 (1.1-2.2); Bilirubin,Total 1.1 mg/dL (0.3-1.0); Globulin 2.8 g/dL (2.4-3.5); Phosphorous 3.9 mg/dL (2.7-4.5); Potassium 3.1 mEq/L (3.5-5.1); Total Protein 5.9 g/dL (6.4-8.9)
[2017-06-29] MEDS ORDERED: Amiodarone Premix 360 MG/200 ML BAG IVC ONE (12:10)
[2017-06-29] MEDS: Lacri-Lube 3.5 GM TUBE BOTH EYES SCH ×4 (12:27→23:50)
[2017-06-29] MEDS: Chlorhexidine Rinse 15 ML MOUTHWASH MM SCH ×2 (12:28→20:36)
[2017-06-29] MEDS ORDERED: Vancomycin 1,250 MG in D5% in Water 250 ML IVPB ONE (13:00)
--- NOTE | 2017-06-29 13:27 | Cardiology Consult Note ---
<Tre Leon - Last Filed: 06/29/17 14:05> Date of Encounter: 06/29/17 Time of Encounter: 11:30 Assessment and Plan (1) Atrial fibrillation with RVR Current Visit: Yes Status: Acute Rapid responses: 06/29/17. -Patient was found to be in A. fib with RVR with bundle branch block. -Previous EKG demonstrated normal sinus rhythm with left bundle branch block. -Patient coded on her way to the CTA. -Was intubated and placed on a ventilator. -Was transported to the ICU. Was given amiodarone. -Heart rate currently in the high 90s. -Echocardiogram has been ordered. Plan: -Continuous cardiac monitoring. -Trend troponins 2. -Cannot coagulate at the moment due to possible GI bleed; Heparin ACS protocol when GI approves for anticoagulation. -Patient not a candidate for catheterization at the present time (2) Elevated troponin Current Visit: Yes Status: Acute Laboratory examination on 06/29/17 demonstrated an elevated troponin at 0.10. -Trend troponin 2. -Echocardiogram pending. -Initiate heparin ACS protocol when patient is stable from GI perspective Discussion w patient/family: The assessment and plan as outlined above was discussed with the patient and/or family members who expressed understanding and agreement. All questions were answered. Thank you for involving us in the care of your patient. Please call with any questions. History of Present Illness Consult date: 06/29/17 Chief complaint: Lower GI bleed History of present illness: Ms. Chilel is a 76 year old female with a PMH of HTN, s/p bio aortic valve replacement, CAD s/p stent, Hx of AVM and GI bleed, present to ER for rectal bleed for several months. Patient reported that on the day of admission, patient had seen her family doctor earlier in the day. She was found to have a low hemoglobin in the outpatient setting is 7.2. Upon arrival to the hospital, patient's hemoglobin was 6.6. Patient had a recent colonoscopy which demonstrated diverticular disease, and several polyps removed. Patient also has a known history of AVMs with bleeding in the past. She describes her stools as dark in color; but occasionally saw bright red blood. She also had dizziness and exertional shortness of breath on arrival. Patient's blood pressure on admission was 104/67. All other vital signs were within normal limits. Patient was transfused with 2 units of packed red blood cells. After this transfusion, hemoglobin increased to 9.0; has been stable since. CT scan demonstrated colonic diverticulosis without evidence of diverticulitis. GI was consultative for the evaluation of a lower GI bleed. Endoscopy was performed on 06/28/17. It demonstrated the following: normal esophagus, stomach. Nonbleeding gastric ulcers were present without any sign of bleeding. Biopsies were taken. There were 3 nonbleeding angioectasias present in the duodenum. These were treated with argon plasma coagulation. There were multiple nonbleeding duodenal ulcers with no stigmata of bleeding. On 06/29/17, a rapid response was called at 5:40 3 AM. Patient was in A. fib with RVR on monitoring. Her heart rate was approximately 150 bpm, EKG demonstrated A. fib with RVR with left bundle branch block. She was also in acute respiratory distress. Blood pressure was 190/100. SPO2 was 70% on oxygen via nasal cannula. Patient was given metoprolol, heart rate decreased to 120 bpm. Pulmonary embolism was suspected. CTA was ordered. During transport to the CTA machine, patient coded. Patient was nonresponsive; ekg monitor tech demonstrated bradycardia, and patient looked cyanotic. Patient had no pulse. She was aggressively resuscitated. CPR was performed and patient was intubated. Right femoral central line was placed. She was placed on a ventilator and blood pressure was stabilized. Laboratory examination demonstrated the presence of an elevated troponin at 0.10. 2 more troponins have been ordered. Patient was seen and examined at bedside this morning. She is accompanied by her family; power of sample processor is present in the room. She is currently intubated and sedated. Does not appear to be in any distress. Heart rate is in the high 90s. Exam reveals fine crackles scattered. Past Med Surg Social Fam HX - Past Medical History Medical history: COPD, coronary artery disease, fibromyalgia, GERD, hyperlipidemia, hypertension, osteoporosis Psychiatric history: anxiety, depression - Past Surgical History Surgical History: heart valve replacement, hysterectomy, orthopedic, other - Social History Smoking Status: Former smoker Alcohol use: none Drug use: none - Family History Mother History Unknown: Yes Living Status: Age at : 50 Cause of : [place] Father Living Status: Age at : 83 Medications and Allergies Baclofen [Lioresal] 10 mg PO TID PRN 05/10/17 [History] Duloxetine HCl [Cymbalta] 120 mg PO DAILY 05/10/17 [History] Metoprolol Succinate [Metoprolol Succinate] 25 mg PO DAILY 05/10/17 [History] Oxybutynin Chloride [Ditropan Xl] 10 mg PO DAILY 05/10/17 [History] Simvastatin [Zocor] 20 mg PO HS 05/10/17 [History] hydroCHLOROthiazide [Hydrochlorothiazide] 25 mg PO DAILY 05/10/17 [History] Aspirin Enteric Coated [Aspirin EC] 81 mg PO DAILY 06/27/17 [History] 3 Allergy/AdvReac Type Severity Reaction Status Date / Time pregabalin [From Lyrica] Allergy Mild Confusion Verified 05/10/17 11:21 gabapentin Allergy Itching Verified 05/10/17 11:21 ROS unobtainable: due to endotracheal tube, due to mental status All Systems Review: A 10-system review of systems was performed and is negative for pertinent findings except as documented above in the HPI. Physical Examination Vital Signs, Last 4 Hours Temp Pulse Resp BP Pulse Ox 06/29/17 13:03 26 101/54 96 06/29/17 13:00 93 26 101/54 96 06/29/17 12:36 93 06/29/17 12:03 99.7 F H 06/29/17 12:00 93 18 102/51 94 06/29/17 11:55 24 100/50 95 06/29/17 11:19 25 114/56 91 06/29/17 11:00 94 18 100/50 97 06/29/17 10:12 102 18 106/54 97 06/29/17 10:03 18 97 06/29/17 10:00 100 18 102/53 97 General: Other (Currently intubated and sedated) Cardiac: Other (Aortic valve replacement; click due to artificial valve heard. 90-95 bpm.) Lungs: Other (scattered crackles throughout.) Results 06/29/17 09:45 06/29/17 09:45 Lab Results 06/29/17 06/29/17 06/29/17 04:56 06:15 06:15 WBC 8.9 Hgb 9.1 L Hct 28.8 L Plt Count 130 L Sodium 138 Potassium 3.9 Chloride 111 H Carbon Dioxide 22 L BUN 15 Creatinine 1.12 Glucose 224 H Calcium 8.9 Magnesium 1.9 Total Bilirubin 1.1 H AST 20 ALT 11 Alkaline Phosphatase 53 Troponin I 0.10 H* TSH 0.819 06/29/17 06/29/17 06/29/17 09:45 09:45 09:45 WBC 13.9 H D Hgb 8.9 L Hct 28.5 L Plt Count 138 L Sodium 142 Potassium 3.1 L Chloride 104 Carbon Dioxide 26 BUN 18 Creatinine 1.37 H Glucose 307 H Calcium 9.0 Magnesium 1.6 Total Bilirubin 1.1 H AST 27 ALT 12 Alkaline Phosphatase 48 Troponin I TSH Consult Discharge Plan - Plan Referrals: Titi Garcia DO [Primary Care Provider] - <Shelly Connors - Last Filed: 06/29/17 14:40> Date of Encounter: 06/29/17 - Attending Attestation I examined this patient and my medical decision-making was reviewed with the Resident Physician. I agree with the documented findings, disposition and treatment plan as described except to the extent set forth below. 76 YOF s/p resp failure and intubation Afib with RVR now on amiodarone Mild elevated troponins with known patent stents in 2015 involving the LAD/RCA Severe anemia GI work up in progress Plan Heparin when okay and safe for ACS Heparin for stroke risk reduction when okay and safe Serial troponins, NO planned intervention unless significant troponin elevation Expect elevation in troponins due to resp failure Assessment and Plan Discussion w patient/family: The assessment and plan as outlined above was discussed with the patient and/or family members who expressed understanding and agreement. All questions were answered. Thank you for involving us in the care of your patient. Please call with any questions. History of Present Illness History of present illness: Ms. Chilel is a 76 year old female All Systems Review: A 10-system review of systems was performed and is negative for pertinent findings except as documented above in the HPI. Physical Examination Vital Signs, Last 4 Hours Temp Pulse Resp BP Pulse Ox 06/29/17 14:00 97 24 102/53 98 06/29/17 13:03 26 101/54 96 06/29/17 13:00 93 26 101/54 96 06/29/17 12:36 93 06/29/17 12:03 99.7 F H 06/29/17 12:00 93 18 102/51 94 06/29/17 11:55 24 100/50 95 06/29/17 11:19 25 114/56 91 06/29/17 11:00 94 18 100/50 97 Results 06/29/17 09:45 06/29/17 09:45 Lab Results 06/29/17 06/29/17 06/29/17 04:56 06:15 06:15 WBC 8.9 Hgb 9.1 L Hct 28.8 L Plt Count 130 L Sodium 138 Potassium 3.9 Chloride 111 H Carbon Dioxide 22 L BUN 15 Creatinine 1.12 Glucose 224 H Calcium 8.9 Magnesium 1.9 Total Bilirubin 1.1 H AST 20 ALT 11 Alkaline Phosphatase 53 Troponin I 0.10 H* TSH 0.819 06/29/17 06/29/17 06/29/17 09:45 09:45 09:45 WBC 13.9 H D Hgb 8.9 L Hct 28.5 L Plt Count 138 L Sodium 142 Potassium 3.1 L Chloride 104 Carbon Dioxide 26 BUN 18 Creatinine 1.37 H Glucose 307 H Calcium 9.0 Magnesium 1.6 Total Bilirubin 1.1 H AST 27 ALT 12 Alkaline Phosphatase 48 Troponin I TSH 06/29/17 13:35 WBC Hgb Hct Plt Count Sodium Potassium Chloride Carbon Dioxide BUN Creatinine Glucose Calcium Magnesium Total Bilirubin AST ALT Alkaline Phosphatase Troponin I 0.56 H* TSH
[2017-06-29] MEDS: Piperacillin/Tazobactam 3.375 GM/200 ML BAG IVPB SCH ×3 (13:46→20:33)
[2017-06-29] MEDS ORDERED: *HR* Dextrose 50 % in Water (Syg) 50 ML SYRINGE IVP PRN (16:38)
[2017-06-29] MEDS ORDERED: D5% in Water 1,000 ML IVC PRN (16:38)
[2017-06-29] MEDS ORDERED: Dextrose Gel 15 GM/37.5 ML TUBE PO PRN ×2 (16:38)
[2017-06-29] MEDS ORDERED: Potassium Chloride Elixir 20 MEQ/15 ML UDC GTUBE ONE (16:39)
[2017-06-29] MEDS: Insulin LISPRO 300 UNITS/3 ML VIAL SQ SCH ×2 (17:23→23:49)
--- NOTE | 2017-06-29 20:03 | Electrocardiograph Report ---
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
--- NOTE | 2017-06-29 20:05 | Electrocardiograph Report ---
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
[2017-06-30] MEDS ORDERED: Amiodarone Premix 360 MG/200 ML BAG IVC ONE (00:32)
[2017-06-30] MEDS: Ipratropium/Albuterol Neb 3 ML IH SCH ×6 (03:42→23:39)
[2017-06-30 04:17] LABS: Basophils % 0.1 %; Hematocrit 26.7 % (35.3-44.9); Hemoglobin 8.4 g/dL (11.5-15.4); Immature Granulocytes % 0.7 % (0-4); Lymphocytes # 0.7 K/mcL (0.6-4.6); Lymphocytes % 6.3 %; Mean Corpuscular HGB Conc 31.5 g/dL (31.6-35.5); Mean Corpuscular Volume 92.1 fL (83.0-100.0); Mean Platelet Volume 10.7 fL (9.4-12.4); Monocytes % 8.6 %; Neutrophils # 9.6 K/mcL (1.6-8.9); Platelet Count 119 K/mcL (140-400); Red Cell Distribution Width 16.9 % (11.5-14.5); Segmented Neutrophils % 84.3 %
[2017-06-30 04:31] LABS: Bilirubin,Total 0.7 mg/dL (0.3-1.0); Calcium 8.7 mg/dL (8.6-10.3); Globulin 2.9 g/dL (2.4-3.5); Potassium 3.2 mEq/L (3.5-5.1); Total Protein 5.9 g/dL (6.4-8.9)
[2017-06-30 04:42] LABS: Magnesium 2.2 mg/dL (1.6-2.6)
[2017-06-30] MEDS: Piperacillin/Tazobactam 3.375 GM/200 ML BAG IVPB SCH ×2 (04:44→16:49)
[2017-06-30] MEDS: Lacri-Lube 3.5 GM TUBE BOTH EYES SCH ×6 (04:44→23:28)
[2017-06-30] MEDS: Insulin LISPRO 300 UNITS/3 ML VIAL SQ SCH ×4 (04:45→23:28)
[2017-06-30] MEDS: FentaNYL (PF) 1,000 MCG in 0.9 % Sodium Chloride 80 ML IVC SCH (04:45)
[2017-06-30] MEDS: Pantoprazole 40 MG VIAL IVP SCH ×2 (04:50→18:32)
[2017-06-30 05:03] LABS: ABG Base Excess 4 mEq/L (-2 to 3); ABG HCO3 29 mEq/L (21-27); ABG Oxygen Saturation 98 % (95-98); ABG PCO2 46 mmHg (35-45); ABG PH 7.41 pH Units (7.32-7.45); ABG PO2 112 mmHg (85-104); ABG TCO2 30 mEq/L (20-26); Blood Gas Modality ASSIST CONTROL
--- NOTE | 2017-06-30 08:54 | Pulmonology Progress Note ---
Addendum entered and electronically signed by Chico Alva DO 06/30/17 14:12 : General appearance: no acute distress, other (Intubated, sedated on mechanical ventilation) Eyes: nonicteric ENT: oropharynx moist Neck: supple Effort: mildly labored Inspection: normal Auscultation: bilateral: rhonchi (Diffuse) Cardiovascular: irregular rhythm Gastrointestinal: normoactive bowel sounds Integumentary: normal Extremities: no cyanosis, no edema, no clubbing, pink and warm Original Note: <Chico Alva - Last Filed: 06/30/17 13:29> Date of Encounter: 06/30/17 Time of Encounter: 08:54 Assessment and Plan (1) Acute respiratory failure Current Visit: Yes Status: Acute Acute respiratory failure in the setting of bilateral pulmonary infiltrates. Pulmonary edeam vs ARDS vs. Multifocal pna Patient has a history of CABG and bioprosthetic aortic valve and his risk for flash pulmonary edema. has received 4L NS and 2 units PRBC Patient intubated on mechanical ventilation patient started on Vanc and zosyn for potential PNA Plan: patient anxious on vent started precedex Still requiring Phenylepherine continue Abx CPAP trial possible extubation later today Qualifiers: Respiratory failure complication: hypoxia and hypercapnia Qualified Code(s) : J96.01 - Acute respiratory failure with hypoxia; J96.02 - Acute respiratory failure with hypercapnia; J96.02 - Acute respiratory failure with hypercapnia; J96.02 - Acute respiratory failure with hypercapnia (2) Respiratory arrest Current Visit: Yes Status: Acute Patient developed respiratory arrest on June 29 at 1800. See code note for further details. (3) Pulmonary edema Current Visit: Yes Status: Acute Chest X ray for pulmonary edema Patient given 1 dose of 40mg IV lasix known hx of dCHF Plan: hold further diuresis 2/2 ARISTIDES Continue to monitor Qualifiers: Chronicity: acute Qualified Code(s): J81.0 - Acute pulmonary edema (4) ARISTIDES (acute kidney injury) Current Visit: Yes Status: Acute Acute on chronic Kidney injury CKD Stage 3 Cr 1.37 on presentation to ICU Cr 1.84 this morning Patient still on pressor support Plan: avoid nephro toxins holding further diuresis continue to monitor Continue foly for strict Is&Os (5) Lower GI bleed Current Visit: Yes Status: Acute Patiented admitted for acute GI Bleed. Underwent EGD Pt has received 2 units PRBC No source of GI bleeding found on endoscopy, underwent colonoscopy April 2017 with findings of diverticulosis in the sigmoid colon, one 6 mm polyp in the proximal transverse colon, tortuous colon. GI on board Plan: continue to monitor H/H GI on board appreciate further recs (6) COPD (chronic obstructive pulmonary disease) Current Visit: Yes Status: Acute Pt with PMHx of COPD patient started on duonebs Plan: Continue Duonebs Qualifiers: COPD type: unspecified COPD Qualified Code(s): J44.9 - Chronic obstructive pulmonary disease, unspecified (7) Atrial fibrillation with RVR Current Visit: Yes Status: Acute Patient went into a fib c RVR yesterday Patient also has a LBBB present on prior ekgs Started on Amiodarone drip currently rate controlled on amio drip Plan: continue amiodarone drip cardiology on board appreciate recs continue to monitor (8) Elevated troponin Current Visit: Yes Status: Acute Trops 0.1, 0.56, 053, 0.41 Echo showed EF 55% LVH Cardiology recommends heparin ACS protocol once cleared by GI Plan: Cardiology on board appreciate recs initiate heparin ACS protocol once cleared by GI (9) Hypokalemia Current Visit: Yes Status: Acute K 3.2 today 2.4 on admission, 3.1 yesterday K has been repleted multiple times Plan: placed patient on electrolyte protocol. replete Mg (10) Hypomagnesemia Current Visit: Yes Status: Acute Mg 1.6 at first check Mg 1.6 today Plan: replete per electrolyte protocol (11) Hyperglycemia Current Visit: Yes Status: Acute Pt not a known diabetic but has elevated glucose through out admission. Went as high as 329 yesterday Patient started on SSI Glucose 144 today Plan: continue SSI continue to monitor (12) DVT prophylaxis Current Visit: Yes Status: Acute Patient on SCDs Not on chemical anticoagulation 2/2 to GI bleed Plan: continue ACDs Cardiology is on board. Recommend starting Heparin for ACS once GI approves. Objective PUL Vital signs: Last Vital Signs Temp 99.0 F 06/30/17 08:25 Pulse 92 06/30/17 06:09 Resp 18 06/30/17 06:21 BP 116/59 06/30/17 06:09 Pulse Ox 93 06/30/17 06:21 Ventilator Settings Ventilator Settings: Ventilator Settings, Last 8 Hours Ventilator Mode A/C Ventilator Mode A/C Ventilator Mode A/C Ventilator Mode A/C Ventilator Mode A/C Ventilator Mode A/C Ventilator Mode A/C Ventilator Mode A/C Ventilator Mode A/C Ventilator Tidal Volume 350 Setting Ventilator Tidal Volume 350 Setting Ventilator Tidal Volume 350 Setting Ventilator Tidal Volume 350 Setting Ventilator Tidal Volume 350 Setting Ventilator Tidal Volume 350 Setting Ventilator Tidal Volume 350 Setting Ventilator Tidal Volume 350 Setting Ventilator Tidal Volume 350 Setting Ventilator Respiratory Rate 16 Setting Ventilator Respiratory Rate 16 Setting Ventilator Respiratory Rate 16 Setting Ventilator Respiratory Rate 16 Setting Ventilator Respiratory Rate 16 Setting Ventilator Respiratory Rate 16 Setting Ventilator Respiratory Rate 16 Setting Ventilator Respiratory Rate 16 Setting Ventilator Respiratory Rate 16 Setting Actual Respiratory Rate 18 Actual Respiratory Rate 20 Actual Respiratory Rate 16 Actual Respiratory Rate 18 Actual Respiratory Rate 16 Actual Respiratory Rate 16 Actual Respiratory Rate 18 Actual Respiratory Rate 18 Positive End Expiratory 10 Pressure Positive End Expiratory 10 Pressure Positive End Expiratory 10 Pressure Positive End Expiratory 10 Pressure Positive End Expiratory 10 Pressure Positive End Expiratory 10 Pressure Positive End Expiratory 10 Pressure Positive End Expiratory 10 Pressure Positive End Expiratory 10 Pressure Peak Inspiratory Airway 34 Pressure Peak Inspiratory Airway 35 Pressure Peak Inspiratory Airway 35 Pressure Peak Inspiratory Airway 32 Pressure Peak Inspiratory Airway 33 Pressure Peak Inspiratory Airway 33 Pressure Peak Inspiratory Airway 34 Pressure Peak Inspiratory Airway 36 Pressure Results - Laboratory Findings CBC and BMP: 06/30/17 03:59 06/30/17 03:59 ABG ABG pH 7.41 pH Units (7.32-7.45) 06/30/17 05:00 ABG pCO2 46 mmHg (35-45) H 06/30/17 05:00 ABG pO2 112 mmHg (85-104) H 06/30/17 05:00 ABG O2 Saturation 98 % (95-98) 06/30/17 05:00 PT/INR, D-dimer PT 12.6 Seconds (9.4-12.1) H 06/27/17 15:58 Abnormal lab findings: Abnormal lab results WBC 11.4 K/mcL (4.3-11.1) H 06/30/17 03:59 RBC 2.90 M/mcL (3.82-4.97) L 06/30/17 03:59 Hgb 8.4 g/dL (11.5-15.4) L 06/30/17 03:59 Hct 26.7 % (35.3-44.9) L 06/30/17 03:59 MCHC 31.5 g/dL (31.6-35.5) L 06/30/17 03:59 RDW 16.9 % (11.5-14.5) H 06/30/17 03:59 Plt Count 119 K/mcL (140-400) L 06/30/17 03:59 Neutrophils # 9.6 K/mcL (1.6-8.9) H 06/30/17 03:59 Nucleated RBCs/100 WBC 0.2 /100 WBC (0) H 06/29/17 09:45 PT 12.6 Seconds (9.4-12.1) H 06/27/17 15:58 ABG pCO2 46 mmHg (35-45) H 06/30/17 05:00 ABG pO2 112 mmHg (85-104) H 06/30/17 05:00 ABG HCO3 29 mEq/L (21-27) H 06/30/17 05:00 ABG Total CO2 30 mEq/L (20-26) H 06/30/17 05:00 ABG Base Excess 4 mEq/L (-2 to 3) H 06/30/17 05:00 VBG pH 7.22 pH Units (7.32-7.42) L 06/29/17 06:33 VBG pCO2 59 mmHg (41-51) H 06/29/17 06:33 VBG pO2 113 mmHg (25-50) H 06/29/17 06:33 Potassium 3.2 mEq/L (3.5-5.1) L 06/30/17 03:59 BUN 29 mg/dL (8-23) H 06/30/17 03:59 Creatinine 1.84 mg/dL (0.60-1.20) H 06/30/17 03:59 Est GFR ( Amer) 32 (> 60) L 06/30/17 03:59 Est GFR (Non-Af Amer) 27 (> 60) L 06/30/17 03:59 Glucose 144 mg/dL (70-105) H 06/30/17 03:59 POC Glucose 151 (58-89) H 06/29/17 23:09 Calculated Osmolality 306 (280-300) H 06/30/17 03:59 Lactic Acid 2.6 mmol/L (0.5-2.2) H 06/29/17 18:30 Troponin I 0.41 ng/mL (< 0.04) H* 06/30/17 03:59 Serum Total Protein 5.9 g/dL (6.4-8.9) L 06/30/17 03:59 Albumin 3.0 g/dL (3.5-5.7) L 06/30/17 03:59 Albumin/Globulin Ratio 1.0 (1.1-2.2) L 06/30/17 03:59 Stool Occult Blood Positive (Negative) A 06/27/17 15:40 - Microbiology Findings Microbiology Findings: Microbiology, Last 48 Hours 06/29/17 07:52 Urine Culture - Preliminary Urine,Catheterized Escherichia coli - Clinical Findings Intake & Output: Intake & Output 06/29/17 06/30/17 06/30/17 23:59 07:59 15:59 Intake Total 2722 / 2722 600 / 600 Output Total 200 / 200 100 / 100 100 / 100 Balance 2522 / 2522 500 / 500 -100 / -100 Weight 82.6 kg Consult Discharge Plan - Plan Referrals: Titi Garcia DO [Primary Care Provider] - <Camacho Harris S - Last Filed: 06/30/17 22:38> Date of Encounter: 06/30/17 Objective PUL Vital signs: Last Vital Signs Temp 98.8 F 06/30/17 20:34 Pulse 86 06/30/17 22:00 Resp 23 06/30/17 22:00 BP 101/57 06/30/17 22:00 Pulse Ox 92 06/30/17 22:00 Results - Laboratory Findings CBC and BMP: 06/30/17 03:59 06/30/17 13:50 ABG ABG pH 7.40 pH Units (7.32-7.45) 06/30/17 13:44 ABG pCO2 45 mmHg (35-45) 06/30/17 13:44 ABG pO2 96 mmHg (85-104) 06/30/17 13:44 ABG O2 Saturation 97 % (95-98) 06/30/17 13:44 PT/INR, D-dimer PT 12.6 Seconds (9.4-12.1) H 06/27/17 15:58 Abnormal lab findings: Abnormal lab results WBC 11.4 K/mcL (4.3-11.1) H 06/30/17 03:59 RBC 2.90 M/mcL (3.82-4.97) L 06/30/17 03:59 Hgb 8.4 g/dL (11.5-15.4) L 06/30/17 03:59 Hct 26.7 % (35.3-44.9) L 06/30/17 03:59 MCHC 31.5 g/dL (31.6-35.5) L 06/30/17 03:59 RDW 16.9 % (11.5-14.5) H 06/30/17 03:59 Plt Count 119 K/mcL (140-400) L 06/30/17 03:59 Neutrophils # 9.6 K/mcL (1.6-8.9) H 06/30/17 03:59 Nucleated RBCs/100 WBC 0.2 /100 WBC (0) H 06/29/17 09:45 PT 12.6 Seconds (9.4-12.1) H 06/27/17 15:58 ABG HCO3 28 mEq/L (21-27) H 06/30/17 13:44 ABG Total CO2 30 mEq/L (20-26) H 06/30/17 13:44 VBG pH 7.22 pH Units (7.32-7.42) L 06/29/17 06:33 VBG pCO2 59 mmHg (41-51) H 06/29/17 06:33 VBG pO2 113 mmHg (25-50) H 06/29/17 06:33 Potassium 3.4 mEq/L (3.5-5.1) L 06/30/17 13:50 BUN 29 mg/dL (8-23) H 06/30/17 03:59 Creatinine 1.84 mg/dL (0.60-1.20) H 06/30/17 03:59 Est GFR ( Amer) 32 (> 60) L 06/30/17 03:59 Est GFR (Non-Af Amer) 27 (> 60) L 06/30/17 03:59 Glucose 144 mg/dL (70-105) H 06/30/17 03:59 POC Glucose 151 (58-89) H 06/29/17 23:09 Calculated Osmolality 306 (280-300) H 06/30/17 03:59 Lactic Acid 2.6 mmol/L (0.5-2.2) H 06/29/17 18:30 Troponin I 0.41 ng/mL (< 0.04) H* 06/30/17 03:59 Serum Total Protein 5.9 g/dL (6.4-8.9) L 06/30/17 03:59 Albumin 3.0 g/dL (3.5-5.7) L 06/30/17 03:59 Albumin/Globulin Ratio 1.0 (1.1-2.2) L 06/30/17 03:59 Stool Occult Blood Positive (Negative) A 06/27/17 15:40 - Microbiology Findings Microbiology Findings: Microbiology, Last 48 Hours 06/29/17 07:52 Urine Culture - Preliminary Urine,Catheterized Escherichia coli - Clinical Findings Intake & Output: Intake & Output 06/30/17 06/30/17 06/30/17 07:59 15:59 23:59 Intake Total 600 / 600 272 / 272 515 / 515 Output Total 100 / 100 300 / 300 250 / 250 Balance 500 / 500 -28 / -28 265 / 265 Weight 82.6 kg - Attending Attestation I saw the patient with the resident agree with History and Physical exam findings. 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 I dont think it is TRALI or TACO too late of a presentation . Atrial fibrillation on Amiodarone drip , patient cannot be anticoagulated in the setting for GI bleed will do SBT try for possible extubation. Will ONneed BIPAP tonight if extubated as person has sleep apnea. Cardiac : Blood pressure is border line will start diuresis depending upon hemodynamic stability. Nutrition/GI: Hold tube feeds PPI prophylaxis Renal : Acute on Chronic Kidney injury can be cardiorenal Heme onc : Patient came as GI bleed now Hb is stable . GI scoped her negative colonoscopy and Upper GI , next step to look for small bowel AVM's needs capsule endoscopy ID : Broad spectrum antibiotics for multifocal pneumonia Musculo skeletal / skin issues : No acute issues Disposition : Critically ill Code status: Full Code Family/POA: , Daughter Spent 40 minutes of Critical care time in medical decision making in maintaining vital organ function and prevention of further decline .
[2017-06-30] MEDS: Docusate Oral Soln 100 MG/10 ML UDC PO SCH ×2 (09:11→20:11)
[2017-06-30] MEDS: Chlorhexidine Rinse 15 ML MOUTHWASH MM SCH ×2 (09:11→20:12)
--- NOTE | 2017-06-30 09:38 | Electrocardiograph Report ---
[place] [address] Test Date: 2017-06-29 Pat Name: Hermelinda Chilel Department: 109 Room: 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
[2017-06-30] MEDS ORDERED: Dexmedetomidine HCl 400 MCG/100 ML MLS IVC ONE (10:12)
[2017-06-30] MEDS: Dexmedetomidine HCl 400 MCG/100 ML MLS IVC SCH ×2 (10:15→17:25)
--- NOTE | 2017-06-30 10:41 | Cardiology Progress Note ---
<Tre Leon - Last Filed: 06/30/17 13:11> Date of Encounter: 06/30/17 Time of Encounter: 10:30 Assessment and Plan (1) Atrial fibrillation with RVR Current Visit: Yes Status: Acute Rapid response: 06/29/17. -Patient was found to be in A. fib with RVR with bundle branch block. -Previous EKG demonstrated normal sinus rhythm with left bundle branch block. -Patient coded on her way to the [facility]. -Was intubated and placed on a ventilator. -Was transported to the ICU. Was given amiodarone. -Heart rate currently 94 bpm. -Echocardiogram demonstrated an ejection fraction of 55% with moderate concentric left ventricular hypertrophy. -Troponins have been as follows: 0.10, 0.56, 0.53, 0.41. Plan: -Continuous cardiac monitoring. -Currently on amiodarone drip 360 mg in 200 mL IV. -Cannot coagulate at the moment due to possible GI bleed; Heparin ACS protocol when GI approves for anticoagulation. -Patient not a candidate for catheterization at the present time (2) Elevated troponin Current Visit: Yes Status: Acute Laboratory examination on 06/29/17 demonstrated an elevated troponin at 0.10. -Subsequent troponins have been as follows: 0.56, 0.53, 0.41. -Echocardiogram was treated an ejection fraction of 55% with moderate concentric left ventricular hypertrophy. -Initiate heparin ACS protocol when patient is stable from GI perspective Discussion w patient/family: The assessment and plan as outlined above was discussed with the patient and/or family members who expressed understanding and agreement. All questions were answered. Thank you for involving us in the care of your patient. Please call with any questions. Subjective Interval history: Patient was seen and examined at bedside this morning. Patient is still intubated; no longer sedated. Is able to nod her head yes and shake her head no to answer questions Denies having any pain. Objective Vital Signs, Last 4 Hours Temp Pulse Resp BP Pulse Ox 06/30/17 10:00 94 24 148/61 91 06/30/17 09:00 93 22 113/57 96 06/30/17 08:50 18 116/59 93 06/30/17 08:25 99.0 F 06/30/17 08:00 91 22 123/56 95 06/30/17 07:00 87 20 103/56 97 General: Other (Patient is currently intubated; no longer sedated.) HEENT: Atraumatic, Normocephaly, Mucus Membranes Moist Neck: No JVD, Normal carotid pulses Cardiac: No Murmur (Murmur present from aortic valve replacement), Other ( Tachycardic) Lungs: Other (Fine crackles diffuse) Neuro: Alert and responsive, No focal deficits noted Skin: No rashes noted on visualized skin Musculoskeletal: No Chest Wall Tenderness Extremities: No Clubbing, No Cyanosis, No Edema, Normal Pulses Results 06/30/17 03:59 06/30/17 03:59 Lab Results 06/29/17 06/29/17 06/29/17 09:45 09:45 13:35 WBC Hgb Hct Plt Count Sodium 142 Potassium 3.1 L Chloride 104 Carbon Dioxide 26 BUN 18 Creatinine 1.37 H Glucose 307 H Calcium 9.0 Magnesium 1.6 Total Bilirubin 1.1 H AST 27 ALT 12 Alkaline Phosphatase 48 Troponin I 0.56 H* 06/29/17 06/30/17 06/30/17 18:30 03:59 03:59 WBC 11.4 H Hgb 8.4 L Hct 26.7 L Plt Count 119 L Sodium Potassium Chloride Carbon Dioxide BUN Creatinine Glucose Calcium Magnesium Total Bilirubin AST ALT Alkaline Phosphatase Troponin I 0.53 H* 0.41 H* 06/30/17 03:59 WBC Hgb Hct Plt Count Sodium 144 Potassium 3.2 L Chloride 106 Carbon Dioxide 29 BUN 29 H Creatinine 1.84 H Glucose 144 H Calcium 8.7 Magnesium 2.2 Total Bilirubin 0.7 AST 18 ALT 10 Alkaline Phosphatase 41 Troponin I Consult Discharge Plan - Plan Referrals: Titi Garcia DO [Primary Care Provider] - <Shelly Connors - Last Filed: 06/30/17 16:12> Date of Encounter: 06/30/17 Assessment and Plan (1) Atrial fibrillation with RVR Current Visit: Yes Status: Acute Rapid response: 06/29/17. -Patient was found to be in A. fib with RVR with bundle branch block. -Previous EKG demonstrated normal sinus rhythm with left bundle branch block. -Patient coded on her way to the [facility]. -Was intubated and placed on a ventilator. -Was transported to the ICU. Was given amiodarone. -Heart rate currently 94 bpm. -Echocardiogram demonstrated an ejection fraction of 55% with moderate concentric left ventricular hypertrophy. -Troponins have been as follows: 0.10, 0.56, 0.53, 0.41. Plan: -Continuous cardiac monitoring. -Currently on amiodarone drip 360 mg in 200 mL IV. -Cannot coagulate at the moment due to possible GI bleed; Heparin ACS protocol when GI approves for anticoagulation. -Patient not a candidate for catheterization at the present time I examined this patient and my medical decision-making was reviewed with the Resident Physician. I agree with the documented findings, disposition and treatment plan as described except to the extent set forth below. 76 YOF with known CAD (stents in the RCA and LAD) likely demand ischemia with downtrending trops now AFIB with RVR on CCB , AC when safe from GI bleed perspective No Cardiac interventions now Discussion w patient/family: The assessment and plan as outlined above was discussed with the patient and/or family members who expressed understanding and agreement. All questions were answered. Thank you for involving us in the care of your patient. Please call with any questions. Objective Vital Signs, Last 4 Hours Temp Pulse Resp BP Pulse Ox 06/30/17 16:01 100.0 F H 06/30/17 15:53 19 91/52 97 06/30/17 15:00 80 19 91/52 97 06/30/17 14:41 25 116/61 97 06/30/17 14:25 116/61 97 06/30/17 13:15 98.9 F 06/30/17 13:00 92 22 102/50 95 06/30/17 12:18 21 95 06/30/17 12:15 19 112/72 99 Results 06/30/17 03:59 06/30/17 13:50 Lab Results 06/29/17 06/30/17 06/30/17 18:30 03:59 03:59 WBC 11.4 H Hgb 8.4 L Hct 26.7 L Plt Count 119 L Sodium Potassium Chloride Carbon Dioxide BUN Creatinine Glucose Calcium Magnesium Total Bilirubin AST ALT Alkaline Phosphatase Troponin I 0.53 H* 0.41 H* 06/30/17 06/30/17 03:59 13:50 WBC Hgb Hct Plt Count Sodium 144 Potassium 3.2 L 3.4 L Chloride 106 Carbon Dioxide 29 BUN 29 H Creatinine 1.84 H Glucose 144 H Calcium 8.7 Magnesium 2.2 Total Bilirubin 0.7 AST 18 ALT 10 Alkaline Phosphatase 41 Troponin I
[2017-06-30] MEDS ORDERED: Vancomycin 1,000 MG in D5% in Water 250 ML IVPB ONE (12:00)
[2017-06-30] MEDS: Amiodarone Premix 360 MG/200 ML BAG IVC SCH (13:00)
[2017-06-30 13:49] LABS: ABG Base Excess 3 mEq/L (-2 to 3); ABG HCO3 28 mEq/L (21-27); ABG Oxygen Saturation 97 % (95-98); ABG PCO2 45 mmHg (35-45); ABG PO2 96 mmHg (85-104); ABG TCO2 30 mEq/L (20-26); Blood Gas Modality CPAP/PS
[2017-06-30] MEDS ORDERED: Saliva Stimulant 100ml BOTTLE PO PRN (17:04)
[2017-06-30] MEDS: *HR* Morphine 2 MG/ML SYRINGE IVP PRN (18:42)
[2017-06-30] MEDS ORDERED: *HR* Morphine 2 MG/ML SYRINGE IVP ONE (20:53)
[2017-07-01] MEDS: Haloperidol Lactate 5 MG/ML VIAL IVP PRN ×2 (00:14→22:20)
[2017-07-01] MEDS: Lacri-Lube 3.5 GM TUBE BOTH EYES SCH ×2 (00:18→07:42)
[2017-07-01] MEDS: Amiodarone Premix 360 MG/200 ML BAG IVC SCH ×2 (00:20→11:53)
[2017-07-01] MEDS: *HR* Morphine 2 MG/ML SYRINGE IVP PRN ×4 (02:51→19:30)
[2017-07-01] MEDS: Dexmedetomidine HCl 400 MCG/100 ML MLS IVC SCH ×4 (03:01→23:49)
[2017-07-01] MEDS: Ipratropium/Albuterol Neb 3 ML IH SCH ×6 (03:39→23:34)
[2017-07-01] MEDS: Piperacillin/Tazobactam 3.375 GM/200 ML BAG IVPB SCH ×2 (04:43→17:36)
[2017-07-01 04:53] LABS: Basophils % 0.1 %; Eosinophils # 0.1 K/mcL (0.0-0.6); Eosinophils % 0.9 %; Hematocrit 26.9 % (35.3-44.9); Hemoglobin 8.1 g/dL (11.5-15.4); Immature Granulocytes % 0.6 % (0-4); Lymphocytes # 0.9 K/mcL (0.6-4.6); Lymphocytes % 11.3 %; Mean Corpuscular HGB Conc 30.1 g/dL (31.6-35.5); Mean Corpuscular Volume 93.1 fL (83.0-100.0); Mean Platelet Volume 11.1 fL (9.4-12.4); Monocytes # 0.5 K/mcL (0.0-1.3); Monocytes % 6.9 %; Neutrophils # 6.3 K/mcL (1.6-8.9); Platelet Count 109 K/mcL (140-400); Red Blood Count 2.89 M/mcL (3.82-4.97); Red Cell Distribution Width 16.5 % (11.5-14.5); Segmented Neutrophils % 80.2 %
[2017-07-01 04:54] LABS: VBG HCO3 25 mEq/L (21-27); VBG PCO2 41 mmHg (41-51); VBG PH 7.39 pH Units (7.32-7.42); VBG PO2 76 mmHg (25-50)
[2017-07-01 05:00] LABS: VBG HCO3 27 mEq/L (21-27); VBG Ionized Calcium 1.15 mmol/L (1.15-1.35); VBG PCO2 51 mmHg (41-51); VBG PH 7.34 pH Units (7.32-7.42); VBG PO2 81 mmHg (25-50)
[2017-07-01 05:16] LABS: Calcium 8.4 mg/dL (8.6-10.3); Magnesium 2.1 mg/dL (1.6-2.6); Phosphorous 3.2 mg/dL (2.7-4.5); Potassium 3.6 mEq/L (3.5-5.1)
[2017-07-01] MEDS: Pantoprazole 40 MG VIAL IVP SCH ×2 (05:24→17:32)
[2017-07-01] MEDS: Insulin LISPRO 300 UNITS/3 ML VIAL SQ SCH ×4 (05:25→23:46)
[2017-07-01] MEDS: Chlorhexidine Rinse 15 ML MOUTHWASH MM SCH (07:43)
[2017-07-01] MEDS ORDERED: Furosemide 20 MG/2 ML VIAL IVP ONE (08:16)
--- NOTE | 2017-07-01 08:50 | Pulmonology Progress Note ---
Addendum entered and electronically signed by Chico Alva DO 07/01/17 13:18 : Vancomycin stopped. Speech consult pending. Once cleared for PO will restart diet, ASA, duloxetine, and Metoprolol. Informed cardiology that GI is ok with anticoagulating the patient. Awaiting orders. patient continues to be anxious started ativan prn until cleared for oral when she can get her home xanax. Original Note: <Chico Alva - Last Filed: 07/01/17 09:10> Date of Encounter: 07/01/17 Time of Encounter: 08:47 Assessment and Plan (1) Acute respiratory failure Current Visit: Yes Status: Acute Acute respiratory failure in the setting of bilateral pulmonary infiltrates. Pulmonary edeam vs ARDS vs. Multifocal pna Patient has a history of CABG and bioprosthetic aortic valve and his risk for flash pulmonary edema. has received 4L NS and 2 units PRBC Patient intubated on mechanical ventilation patient started on Vanc and zosyn for potential PNA patient anxious on vent started precedex Patient extubated successfully yesterday No longer requiring Phenylepherine Plan: continue Abx continue oxygen supplementation as needed Qualifiers: Respiratory failure complication: hypoxia and hypercapnia Qualified Code(s) : J96.01 - Acute respiratory failure with hypoxia; J96.02 - Acute respiratory failure with hypercapnia; J96.02 - Acute respiratory failure with hypercapnia; J96.02 - Acute respiratory failure with hypercapnia (2) Respiratory arrest Current Visit: Yes Status: Acute Patient developed respiratory arrest on June 29 at 1800. See code note for further details. Patient was stabalized and now off pressors and satting well on NC (3) Pulmonary edema Current Visit: Yes Status: Acute Chest X ray for pulmonary edema Patient given 1 dose of 40mg IV lasix known hx of dCHF Plan: ALI improved given 20 IV lasix this morning Continue to monitor Qualifiers: Chronicity: acute Qualified Code(s): J81.0 - Acute pulmonary edema (4) ARISTIDES (acute kidney injury) Current Visit: Yes Status: Acute Acute on chronic Kidney injury CKD Stage 3 Cr 1.37 on presentation to ICU, 1.84 yesterday Cr 1.45 this morning Plan: avoid nephro toxins continue to monitor Continue foly for strict Is&Os (5) Lower GI bleed Current Visit: Yes Status: Acute Patiented admitted for acute GI Bleed. Underwent EGD Pt has received 2 units PRBC No source of GI bleeding found on endoscopy, underwent colonoscopy April 2017 with findings of diverticulosis in the sigmoid colon, one 6 mm polyp in the proximal transverse colon, tortuous colon. No overt bleeding noticed GI on board Plan: continue to monitor H/H GI on board appreciate further recs (6) COPD (chronic obstructive pulmonary disease) Current Visit: Yes Status: Acute Pt with PMHx of COPD patient started on duonebs Plan: Continue Duonebs Qualifiers: COPD type: unspecified COPD Qualified Code(s): J44.9 - Chronic obstructive pulmonary disease, unspecified (7) Atrial fibrillation with RVR Current Visit: Yes Status: Acute Patient went into a fib c RVR yesterday Patient also has a LBBB present on prior ekgs Started on Amiodarone drip currently rate controlled on amio drip Plan: continue amiodarone drip for now defer to cardiology on switch to PO cardiology on board appreciate recs continue to monitor (8) Elevated troponin Current Visit: Yes Status: Acute Trops 0.1, 0.56, 053, 0.41 Echo showed EF 55% LVH Cardiology recommends heparin ACS protocol once cleared by GI Plan: Cardiology on board appreciate recs discussed case with GI. recommendation pending. (9) Hypokalemia Current Visit: Yes Status: Acute K 3.6 today 2.4 on admission, 3.2 yesterday K has been repleted multiple times placed patient on electrolyte protocol. Plan: replete per protocol replete Mg per protocol (10) Hypomagnesemia Current Visit: Yes Status: Acute Mg 1.6 at first check Mg 2.1 today Plan: replete per electrolyte protocol (11) Hyperglycemia Current Visit: Yes Status: Acute Pt not a known diabetic but has elevated glucose through out admission. Went as high as 329 yesterday Patient started on SSI Glucose 157 today Plan: continue SSI continue to monitor (12) DVT prophylaxis Current Visit: Yes Status: Acute Patient on SCDs Not on chemical anticoagulation 2/2 to GI bleed Plan: continue ACDs Cardiology is on board. Recommend starting Heparin for ACS once GI approves. Discussed with GI. Recommendation pending. Subjective Principal diagnosis: Acute respiratory failure Interval history: Patient extubated successfully yesterday. Patient currently on biPAP so unable to communicate at this time. Patient BP and HR well controlled on amiodarone drip. Cardiology on board will defer to them to transition off drip. Objective PUL Vital signs: Last Vital Signs Temp 98.4 F 07/01/17 07:33 Pulse 96 07/01/17 07:45 Resp 23 07/01/17 07:45 BP 125/78 07/01/17 07:45 Pulse Ox 94 07/01/17 07:45 General appearance: no acute distress Eyes: nonicteric ENT: oropharynx moist Neck: supple Auscultation: bilateral: wheezes, other (coarse breath sounds through out) Cardiovascular: regular rate and rhythm Gastrointestinal: hypoactive bowel sounds, soft, non-tender, non-distended Integumentary: normal Extremities: no cyanosis, no edema Musculoskeletal: no deformities normal mental status, non-focal exam anxious Results - Laboratory Findings CBC and BMP: 07/01/17 04:35 07/01/17 04:35 ABG ABG pH 7.40 pH Units (7.32-7.45) 06/30/17 13:44 ABG pCO2 45 mmHg (35-45) 06/30/17 13:44 ABG pO2 96 mmHg (85-104) 06/30/17 13:44 ABG O2 Saturation 97 % (95-98) 06/30/17 13:44 PT/INR, D-dimer PT 12.6 Seconds (9.4-12.1) H 06/27/17 15:58 Abnormal lab findings: Abnormal lab results RBC 2.89 M/mcL (3.82-4.97) L 07/01/17 04:35 Hgb 8.1 g/dL (11.5-15.4) L 07/01/17 04:35 Hct 26.9 % (35.3-44.9) L 07/01/17 04:35 MCHC 30.1 g/dL (31.6-35.5) L 07/01/17 04:35 RDW 16.5 % (11.5-14.5) H 07/01/17 04:35 Plt Count 109 K/mcL (140-400) L 07/01/17 04:35 Nucleated RBCs/100 WBC 0.2 /100 WBC (0) H 06/29/17 09:45 PT 12.6 Seconds (9.4-12.1) H 06/27/17 15:58 ABG HCO3 28 mEq/L (21-27) H 06/30/17 13:44 ABG Total CO2 30 mEq/L (20-26) H 06/30/17 13:44 VBG pO2 81 mmHg (25-50) H 07/01/17 04:57 BUN 36 mg/dL (8-23) H 07/01/17 04:35 Creatinine 1.45 mg/dL (0.60-1.20) H 07/01/17 04:35 Est GFR ( Amer) 42 (> 60) L 07/01/17 04:35 Est GFR (Non-Af Amer) 35 (> 60) L 07/01/17 04:35 Glucose 157 mg/dL (70-105) H 07/01/17 04:35 POC Glucose 132 (58-89) H 06/30/17 23:25 Calculated Osmolality 306 (280-300) H 07/01/17 04:35 Lactic Acid 2.6 mmol/L (0.5-2.2) H 06/29/17 18:30 Calcium 8.4 mg/dL (8.6-10.3) L 07/01/17 04:35 Troponin I 0.41 ng/mL (< 0.04) H* 06/30/17 03:59 Serum Total Protein 5.9 g/dL (6.4-8.9) L 06/30/17 03:59 Albumin 3.0 g/dL (3.5-5.7) L 06/30/17 03:59 Albumin/Globulin Ratio 1.0 (1.1-2.2) L 06/30/17 03:59 Stool Occult Blood Positive (Negative) A 06/27/17 15:40 - Microbiology Findings Microbiology Findings: Microbiology, Last 48 Hours 06/29/17 07:52 Urine Culture - Final Urine,Catheterized Escherichia coli 06/29/17 08:44 Blood Culture - Preliminary Peripheral Venipuncture No growth. 06/29/17 08:38 Blood Culture - Preliminary Peripheral Venipuncture No growth. - Clinical Findings Intake & Output: Intake & Output 06/30/17 07/01/17 07/01/17 23:59 07:59 15:59 Intake Total 764 / 764 454 / 454 Output Total 375 / 375 350 / 350 Balance 389 / 389 104 / 104 Weight 85.7 kg - VTE Documentation of Mechanical Device: Intermittent pneumatic compression device Consult Discharge Plan - Plan Referrals: Titi Garcia DO [Primary Care Provider] - <Camacho Harris S - Last Filed: 07/01/17 22:14> Date of Encounter: 07/01/17 Objective PUL Vital signs: Last Vital Signs Temp 98.4 F 07/01/17 19:50 Pulse 90 07/01/17 21:00 Resp 24 07/01/17 21:00 BP 149/83 07/01/17 21:00 Pulse Ox 100 07/01/17 21:00 Results - Laboratory Findings CBC and BMP: 07/01/17 04:35 07/01/17 18:30 ABG ABG pH 7.40 pH Units (7.32-7.45) 06/30/17 13:44 ABG pCO2 45 mmHg (35-45) 06/30/17 13:44 ABG pO2 96 mmHg (85-104) 06/30/17 13:44 ABG O2 Saturation 97 % (95-98) 06/30/17 13:44 PT/INR, D-dimer PT 12.6 Seconds (9.4-12.1) H 06/27/17 15:58 Abnormal lab findings: Abnormal lab results RBC 2.89 M/mcL (3.82-4.97) L 07/01/17 04:35 Hgb 8.1 g/dL (11.5-15.4) L 07/01/17 04:35 Hct 26.9 % (35.3-44.9) L 07/01/17 04:35 MCHC 30.1 g/dL (31.6-35.5) L 07/01/17 04:35 RDW 16.5 % (11.5-14.5) H 07/01/17 04:35 Plt Count 109 K/mcL (140-400) L 07/01/17 04:35 Nucleated RBCs/100 WBC 0.2 /100 WBC (0) H 06/29/17 09:45 PT 12.6 Seconds (9.4-12.1) H 06/27/17 15:58 ABG HCO3 28 mEq/L (21-27) H 06/30/17 13:44 ABG Total CO2 30 mEq/L (20-26) H 06/30/17 13:44 VBG pO2 81 mmHg (25-50) H 07/01/17 04:57 BUN 36 mg/dL (8-23) H 07/01/17 04:35 Creatinine 1.45 mg/dL (0.60-1.20) H 07/01/17 04:35 Est GFR ( Amer) 42 (> 60) L 07/01/17 04:35 Est GFR (Non-Af Amer) 35 (> 60) L 07/01/17 04:35 Glucose 157 mg/dL (70-105) H 07/01/17 04:35 POC Glucose 132 (58-89) H 06/30/17 23:25 Calculated Osmolality 306 (280-300) H 07/01/17 04:35 Lactic Acid 2.6 mmol/L (0.5-2.2) H 06/29/17 18:30 Calcium 8.4 mg/dL (8.6-10.3) L 07/01/17 04:35 Troponin I 0.41 ng/mL (< 0.04) H* 06/30/17 03:59 Serum Total Protein 5.9 g/dL (6.4-8.9) L 06/30/17 03:59 Albumin 3.0 g/dL (3.5-5.7) L 06/30/17 03:59 Albumin/Globulin Ratio 1.0 (1.1-2.2) L 06/30/17 03:59 Stool Occult Blood Positive (Negative) A 06/27/17 15:40 - Microbiology Findings Microbiology Findings: Microbiology, Last 48 Hours 06/29/17 07:52 Urine Culture - Final Urine,Catheterized Escherichia coli 06/29/17 08:44 Blood Culture - Preliminary Peripheral Venipuncture No growth. 06/29/17 08:38 Blood Culture - Preliminary Peripheral Venipuncture No growth. - Clinical Findings Intake & Output: Intake & Output 07/01/17 07/01/17 07/01/17 07:59 15:59 23:59 Intake Total 454 / 454 500 / 500 300 / 300 Output Total 350 / 350 250 / 250 1150 / 1150 Balance 104 / 104 250 / 250 -850 / -850 - Attending Attestation I saw the patient with the resident agree with History and Physical exam findings. Labs and Radiology were reviewed BIPAP data was reviewed CRTT: Patient is conscious oriented x 3 but has some episodic anxiety and delirium patient is on precedex NECK : No JVD appreciated Pulmonary : Patient acute respiratory failure secondary to fluid overload in the setting of diastolic heart failure multifocal pneumonia cannot be ruled out will treat with broad spectrum antibiotics . I dont think it is TRALI or TACO too late of a presentation . Atrial fibrillation on Amiodarone drip Patient was extubated yesterday will need BIPAP intermittent during day and night to continue the antibiotics Cardiac : Patient is hemodynamically stable will start diuresing in the background of heart failure will transition to PO lopressor GI was ok for anticoagulation will start anticoagulation once she is stable might start on Lovenox how she is stable GI bleed johnson Nutrition/GI: Will need speech evaluation PPI prophylaxis Renal : Acute on Chronic Kidney injury improving Heme onc : Patient came as GI bleed now Hb is stable . GI scoped her negative colonoscopy and Upper GI , next step to look for small bowel AVM's needs capsule endoscopy , GI gave clearance for anticoagulation for atrial fibrillation with RVR ID : Broad spectrum antibiotics for multifocal pneumonia will start descalating Musculo skeletal / skin issues : No acute issues Disposition : Critically ill Code status: Full Code Family/POA: , Daughter
[2017-07-01] MEDS: Docusate Oral Soln 100 MG/10 ML UDC PO SCH ×2 (10:01→21:19)
[2017-07-01] MEDS: *HR* LORazepam 2 MG/ML VIAL IVP PRN ×2 (10:01→21:20)
[2017-07-01] MEDS ORDERED: Vancomycin 1,000 MG in D5% in Water 250 ML IVPB ONE (11:00)
[2017-07-01] MEDS ORDERED: Aminoglycoside Consult 1 EACH MC ONE (12:17)
--- NOTE | 2017-07-01 13:38 | Cardiology Progress Note ---
<Tre Leon - Last Filed: 07/01/17 13:42> Date of Encounter: 07/01/17 Time of Encounter: 11:00 Assessment and Plan (1) Atrial fibrillation with RVR Current Visit: Yes Status: Acute Rapid response: 06/29/17. -Patient was found to be in A. fib with RVR with bundle branch block. -Previous EKG demonstrated normal sinus rhythm with left bundle branch block. -Patient coded on her way to the [facility]. -Was intubated and placed on a ventilator. -Was transported to the ICU. Was given amiodarone. -Echocardiogram demonstrated an ejection fraction of 55% with moderate concentric left ventricular hypertrophy. -Troponins have been as follows: 0.10, 0.56, 0.53, 0.41. Plan: -Continuous cardiac monitoring. -Discontinue amiodarone drip; start amiodarone 200 mg daily. -Per GI: Safe to anticoagulate patient at this time. -We will start Eliquis 5 mg twice a day. (2) Elevated troponin Current Visit: Yes Status: Acute Laboratory examination on 06/29/17 demonstrated an elevated troponin at 0.10. -Subsequent troponins have been as follows: 0.56, 0.53, 0.41. -Echocardiogram was treated an ejection fraction of 55% with moderate concentric left ventricular hypertrophy. -Initiate heparin ACS protocol when patient is stable from GI perspective Discussion w patient/family: The assessment and plan as outlined above was discussed with the patient and/or family members who expressed understanding and agreement. All questions were answered. Thank you for involving us in the care of your patient. Please call with any questions. Subjective Principal diagnosis: Acute respiratory failure Interval history: Patient was seen and examined at bedside this morning. Patient is currently on BiPAP. Appears to be sedated; unable to awaken. Does not appear to be in any distress. Objective Vital Signs, Last 4 Hours Temp Pulse Resp BP Pulse Ox 07/01/17 11:29 97.5 F L 07/01/17 11:02 16 99 07/01/17 10:45 75 22 135/68 99 07/01/17 09:45 80 22 114/59 99 General: Other (Currently sedated; on BiPAP.) HEENT: Atraumatic, Normocephaly, Mucus Membranes Moist Neck: No JVD, Normal carotid pulses Cardiac: Other (Click due to artificial valve appreciated on PE.) Lungs: Other (Diffuse crackles bilaterally) Abdomen: Soft, Non-Tender Skin: No rashes noted on visualized skin Musculoskeletal: No Chest Wall Tenderness Extremities: No Clubbing, No Cyanosis, No Edema, Normal Pulses Results 07/01/17 04:35 07/01/17 04:35 Lab Results 06/30/17 06/30/17 07/01/17 13:50 23:00 04:35 WBC 7.9 Hgb 8.1 L Hct 26.9 L Plt Count 109 L Sodium Potassium 3.4 L 3.7 Chloride Carbon Dioxide BUN Creatinine Glucose Calcium Magnesium 07/01/17 04:35 WBC Hgb Hct Plt Count Sodium 142 Potassium 3.6 Chloride 107 Carbon Dioxide 28 BUN 36 H Creatinine 1.45 H Glucose 157 H Calcium 8.4 L Magnesium 2.1 - VTE Documentation of Mechanical Device: Intermittent pneumatic compression device Consult Discharge Plan - Plan Referrals: Titi Garcia DO [Primary Care Provider] - <Shelly Connors - Last Filed: 07/01/17 15:28> Date of Encounter: 07/01/17 Assessment and Plan (1) Atrial fibrillation with RVR Current Visit: Yes Status: Acute I examined this patient and my medical decision-making was reviewed with the Resident Physician. I agree with the documented findings, disposition and treatment plan as described except to the extent set forth below. 76 YOF with past STENTs to the LAD and RCA presents with GI Bleed Patient found to be in Afib rate controlled Okay to AC from GI , will start NOAC Mild elevated trops likely emand ischemia, EF 55% on ECHO this admission (no further procedures planned) Discussion w patient/family: The assessment and plan as outlined above was discussed with the patient and/or family members who expressed understanding and agreement. All questions were answered. Thank you for involving us in the care of your patient. Please call with any questions. Objective Vital Signs, Last 4 Hours Temp Pulse Resp BP Pulse Ox 07/01/17 14:45 75 24 140/83 98 07/01/17 13:45 80 23 132/81 95 07/01/17 12:45 76 22 114/76 95 07/01/17 11:45 80 19 132/81 99 07/01/17 11:29 97.5 F L Results 07/01/17 04:35 07/01/17 04:35 Lab Results 06/30/17 07/01/17 07/01/17 23:00 04:35 04:35 WBC 7.9 Hgb 8.1 L Hct 26.9 L Plt Count 109 L Sodium 142 Potassium 3.7 3.6 Chloride 107 Carbon Dioxide 28 BUN 36 H Creatinine 1.45 H Glucose 157 H Calcium 8.4 L Magnesium 2.1
[2017-07-01] MEDS: *HR* Amiodarone 200 MG TABLET PO SCH (17:32)
[2017-07-01] MEDS: Apixaban 5 MG TABLET PO SCH (21:19)
[2017-07-02] MEDS: *HR* Morphine 2 MG/ML SYRINGE IVP PRN ×3 (01:57→23:36)
[2017-07-02 03:05] LABS: ABG Base Excess 3 mEq/L (-2 to 3); ABG HCO3 28 mEq/L (21-27); ABG Oxygen Saturation 99 % (95-98); ABG PCO2 42 mmHg (35-45); ABG PH 7.42 pH Units (7.32-7.45); ABG PO2 133 mmHg (85-104); ABG TCO2 29 mEq/L (20-26); Blood Gas PEEP 6 cm H2O
[2017-07-02] MEDS: Ipratropium/Albuterol Neb 3 ML IH SCH ×5 (03:23→20:00)
[2017-07-02 03:58] LABS: Basophils % 0.2 %; Eosinophils % 0.8 %; Hematocrit 25.7 % (35.3-44.9); Hemoglobin 7.7 g/dL (11.5-15.4); Immature Granulocytes % 0.6 % (0-4); Lymphocytes # 0.6 K/mcL (0.6-4.6); Lymphocytes % 10.9 %; Mean Corpuscular Hemoglobin 28.2 pg (28.0-33.3); Mean Corpuscular Volume 94.1 fL (83.0-100.0); Mean Platelet Volume 11.5 fL (9.4-12.4); Monocytes # 0.4 K/mcL (0.0-1.3); Monocytes % 7.3 %; Nucleated Red Blood Cells 0.6 /100 WBC (0); Platelet Count 107 K/mcL (140-400); Red Blood Count 2.73 M/mcL (3.82-4.97); Red Cell Distribution Width 15.9 % (11.5-14.5); Segmented Neutrophils % 80.2 %
[2017-07-02] MEDS: Piperacillin/Tazobactam 3.375 GM/200 ML BAG IVPB SCH ×2 (04:14→16:27)
[2017-07-02 04:21] LABS: Calcium 8.5 mg/dL (8.6-10.3); Magnesium 2.1 mg/dL (1.6-2.6); Potassium 4.3 mEq/L (3.5-5.1)
[2017-07-02] MEDS: Dexmedetomidine HCl 400 MCG/100 ML MLS IVC SCH ×4 (04:50→21:00)
[2017-07-02] MEDS: Pantoprazole 40 MG VIAL IVP SCH ×2 (05:58→17:11)
[2017-07-02] MEDS: Haloperidol Lactate 5 MG/ML VIAL IVP PRN (05:58)
[2017-07-02] MEDS: Insulin LISPRO 300 UNITS/3 ML VIAL SQ SCH ×3 (05:58→17:11)
--- NOTE | 2017-07-02 07:32 | Pulmonology Progress Note ---
<Chico Avla - Last Filed: 07/02/17 11:30> Date of Encounter: 07/02/17 Time of Encounter: 07:32 Assessment and Plan (1) Acute respiratory failure Current Visit: Yes Status: Acute Acute respiratory failure in the setting of bilateral pulmonary infiltrates. Pulmonary edeam vs ARDS vs. Multifocal pna Patient has a history of CABG and bioprosthetic aortic valve and his risk for flash pulmonary edema. has received 4L NS and 2 units PRBC Patient intubated on mechanical ventilation patient started on Vanc and zosyn for potential PNA vanc stopped yesterday patient anxious on vent started precedex, home xanax and home cymbalta Patient extubated successfully No longer requiring Phenylepherine Plan: continue Abx continue oxygen supplementation as needed continue anxiolytics patient safe for transfer to Qualifiers: Respiratory failure complication: hypoxia and hypercapnia Qualified Code(s) : J96.01 - Acute respiratory failure with hypoxia; J96.02 - Acute respiratory failure with hypercapnia; J96.02 - Acute respiratory failure with hypercapnia; J96.02 - Acute respiratory failure with hypercapnia (2) Respiratory arrest Current Visit: Yes Status: Acute Patient developed respiratory arrest on June 29 at 1800. See code note for further details. Patient was stabilized and now off pressors and satting well on NC (3) Pulmonary edema Current Visit: Yes Status: Acute Chest X ray for pulmonary edema Patient given 1 dose of 40mg IV lasix known hx of dCHF Plan: ARISTIDES improved given another 20 IV lasix this morning Continue to monitor Qualifiers: Chronicity: acute Qualified Code(s): J81.0 - Acute pulmonary edema (4) ARISTIDES (acute kidney injury) Current Visit: Yes Status: Acute Acute on chronic Kidney injury CKD Stage 3 Cr 1.37 on presentation to ICU, Cr 1.2 this morning Plan: avoid nephro toxins continue to monitor Continue foly for strict Is&Os (5) Lower GI bleed Current Visit: Yes Status: Acute Patiented admitted for acute GI Bleed. Underwent EGD Pt has received 2 units PRBC No source of GI bleeding found on endoscopy, underwent colonoscopy April 2017 with findings of diverticulosis in the sigmoid colon, one 6 mm polyp in the proximal transverse colon, tortuous colon. No overt bleeding noticed GI signed off will do capsule study as outpatient Plan: continue to monitor H/H (6) COPD (chronic obstructive pulmonary disease) Current Visit: Yes Status: Acute Pt with PMHx of COPD patient started on duonebs Plan: Continue Duonebs Qualifiers: COPD type: unspecified COPD Qualified Code(s): J44.9 - Chronic obstructive pulmonary disease, unspecified (7) Atrial fibrillation with RVR Current Visit: Yes Status: Acute Patient went into a fib c RVR yesterday Patient also has a LBBB present on prior ekgs Started on Amiodarone drip amiodarone drip d/c'd yesterday started on PO amiodarone currently RRR Plan: cntinue PO amiodarone cardiology on board appreciate recs continue to monitor (8) Elevated troponin Current Visit: Yes Status: Acute Trops 0.1, 0.56, 053, 0.41 Echo showed EF 55% LVH l Plan: Cardiology on board appreciate recs patient started on ellequis for anticoagulation (9) Hypokalemia Current Visit: Yes Status: Acute K 4.3 today 2.4 on admission, 3.6 yesterday K has been repleted multiple times placed patient on electrolyte protocol. Plan: replete per protocol replete Mg per protocol (10) Hypomagnesemia Current Visit: Yes Status: Acute Mg 1.6 at first check Mg 2.1 today Plan: replete per electrolyte protocol (11) Hyperglycemia Current Visit: Yes Status: Acute Pt not a known diabetic but has elevated glucose through out admission. Went as high as 329 yesterday Patient started on SSI Glucose 154 today pt cleared for diet so switched to ACHS checkes and ssi Plan: SSI changed to ACHS continue to monitor (12) UTI (urinary tract infection) Current Visit: Yes Status: Acute Postive Ucx for e. coli Plan: Continue zosyn Qualifiers: Urinary tract infection type: acute cystitis Hematuria presence: without hematuria Qualified Code(s): N30.00 - Acute cystitis without hematuria (13) Pneumonia Current Visit: Yes Status: Suspected Latest CXR: Patchy airspace opacities bilaterally, likely related to pulmonary edema versus pneumonia, mildly improved in the left hemithorax. Concern for pneumonia so treated with broad specturm abx to cover any mrsa or gram negative causes. De-escalated to just zosyn yesterday. WBC down trending Plan: continue zosyn continue to monitor Qualifiers: Pneumonia type: due to unspecified organism Laterality: bilateral Lung location: unspecified part of lung Qualified Code(s): J18.9 - Pneumonia, unspecified organism (14) DVT prophylaxis Current Visit: Yes Status: Acute Patient on SCDs Not on chemical anticoagulation originally 2/ to GI bleed Plan: continue SCDs Cardiology is on board. Patient started on ellequis Subjective Principal diagnosis: Acute respiratory failure Interval history: Patient extubated successfully yesterday. Patient currently on biPAP so unable to communicate at this time. Patient BP and HR well controlled on amiodarone drip. Cardiology on board will defer to them to transition off drip. Objective PUL Vital signs: Last Vital Signs Temp 98.0 F 07/02/17 07:26 Pulse 81 07/02/17 06:00 Resp 20 07/02/17 06:00 BP 134/71 07/02/17 06:00 Pulse Ox 96 07/02/17 06:00 Results - Laboratory Findings CBC and BMP: 07/02/17 03:40 07/02/17 03:40 ABG ABG pH 7.42 pH Units (7.32-7.45) 07/02/17 03:00 ABG pCO2 42 mmHg (35-45) 07/02/17 03:00 ABG pO2 133 mmHg (85-104) H 07/02/17 03:00 ABG O2 Saturation 99 % (95-98) H 07/02/17 03:00 PT/INR, D-dimer PT 12.6 Seconds (9.4-12.1) H 06/27/17 15:58 Abnormal lab findings: Abnormal lab results RBC 2.73 M/mcL (3.82-4.97) L 07/02/17 03:40 Hgb 7.7 g/dL (11.5-15.4) L 07/02/17 03:40 Hct 25.7 % (35.3-44.9) L 07/02/17 03:40 MCHC 30.0 g/dL (31.6-35.5) L 07/02/17 03:40 RDW 15.9 % (11.5-14.5) H 07/02/17 03:40 Plt Count 107 K/mcL (140-400) L 07/02/17 03:40 Nucleated RBCs/100 WBC 0.6 /100 WBC (0) H 07/02/17 03:40 PT 12.6 Seconds (9.4-12.1) H 06/27/17 15:58 ABG pO2 133 mmHg (85-104) H 07/02/17 03:00 ABG HCO3 28 mEq/L (21-27) H 07/02/17 03:00 ABG Total CO2 29 mEq/L (20-26) H 07/02/17 03:00 ABG O2 Saturation 99 % (95-98) H 07/02/17 03:00 VBG pO2 81 mmHg (25-50) H 07/01/17 04:57 Chloride 109 mEq/L (98-107) H 07/02/17 03:40 BUN 36 mg/dL (8-23) H 07/02/17 03:40 Est GFR ( Amer) 53 (> 60) L 07/02/17 03:40 Est GFR (Non-Af Amer) 44 (> 60) L 07/02/17 03:40 BUN/Creatinine Ratio 30 (6-26) H 07/02/17 03:40 Glucose 154 mg/dL (70-105) H 07/02/17 03:40 POC Glucose 145 (58-89) H 07/01/17 23:35 Calculated Osmolality 307 (280-300) H 07/02/17 03:40 Lactic Acid 2.6 mmol/L (0.5-2.2) H 06/29/17 18:30 Calcium 8.5 mg/dL (8.6-10.3) L 07/02/17 03:40 Troponin I 0.41 ng/mL (< 0.04) H* 06/30/17 03:59 Serum Total Protein 5.9 g/dL (6.4-8.9) L 06/30/17 03:59 Albumin 3.0 g/dL (3.5-5.7) L 06/30/17 03:59 Albumin/Globulin Ratio 1.0 (1.1-2.2) L 06/30/17 03:59 Stool Occult Blood Positive (Negative) A 06/27/17 15:40 - Microbiology Findings Microbiology Findings: Microbiology, Last 48 Hours 06/29/17 07:52 Urine Culture - Final Urine,Catheterized Escherichia coli 06/29/17 08:44 Blood Culture - Preliminary Peripheral Venipuncture No growth. 06/29/17 08:38 Blood Culture - Preliminary Peripheral Venipuncture No growth. - Clinical Findings Intake & Output: Intake & Output 07/01/17 07/01/17 07/02/17 15:59 23:59 07:59 Intake Total 600 / 600 400 / 400 550 / 550 Output Total 250 / 250 1150 / 1150 500 / 500 Balance 350 / 350 -750 / -750 50 / 50 Weight 84.7 kg - VTE Documentation of Mechanical Device: Intermittent pneumatic compression device Consult Discharge Plan - Plan Referrals: Titi Garcia DO [Primary Care Provider] - <Camacho Harris - Last Filed: 07/02/17 22:16> Date of Encounter: 07/02/17 Objective PUL Vital signs: Last Vital Signs Temp 97.8 F 07/02/17 11:57 Pulse 73 07/02/17 12:45 Resp 21 07/02/17 12:45 BP 108/62 07/02/17 12:45 Pulse Ox 97 07/02/17 12:45 Results - Laboratory Findings CBC and BMP: 07/02/17 03:40 07/02/17 03:40 ABG ABG pH 7.42 pH Units (7.32-7.45) 07/02/17 03:00 ABG pCO2 42 mmHg (35-45) 07/02/17 03:00 ABG pO2 133 mmHg (85-104) H 07/02/17 03:00 ABG O2 Saturation 99 % (95-98) H 07/02/17 03:00 PT/INR, D-dimer PT 12.6 Seconds (9.4-12.1) H 06/27/17 15:58 Abnormal lab findings: Abnormal lab results RBC 2.73 M/mcL (3.82-4.97) L 07/02/17 03:40 Hgb 7.7 g/dL (11.5-15.4) L 07/02/17 03:40 Hct 25.7 % (35.3-44.9) L 07/02/17 03:40 MCHC 30.0 g/dL (31.6-35.5) L 07/02/17 03:40 RDW 15.9 % (11.5-14.5) H 07/02/17 03:40 Plt Count 107 K/mcL (140-400) L 07/02/17 03:40 Nucleated RBCs/100 WBC 0.6 /100 WBC (0) H 07/02/17 03:40 PT 12.6 Seconds (9.4-12.1) H 06/27/17 15:58 ABG pO2 133 mmHg (85-104) H 07/02/17 03:00 ABG HCO3 28 mEq/L (21-27) H 07/02/17 03:00 ABG Total CO2 29 mEq/L (20-26) H 07/02/17 03:00 ABG O2 Saturation 99 % (95-98) H 07/02/17 03:00 VBG pO2 81 mmHg (25-50) H 07/01/17 04:57 Chloride 109 mEq/L (98-107) H 07/02/17 03:40 BUN 36 mg/dL (8-23) H 07/02/17 03:40 Est GFR ( Amer) 53 (> 60) L 07/02/17 03:40 Est GFR (Non-Af Amer) 44 (> 60) L 07/02/17 03:40 BUN/Creatinine Ratio 30 (6-26) H 07/02/17 03:40 Glucose 154 mg/dL (70-105) H 07/02/17 03:40 POC Glucose 145 (58-89) H 07/01/17 23:35 Calculated Osmolality 307 (280-300) H 07/02/17 03:40 Lactic Acid 2.6 mmol/L (0.5-2.2) H 06/29/17 18:30 Calcium 8.5 mg/dL (8.6-10.3) L 07/02/17 03:40 Troponin I 0.41 ng/mL (< 0.04) H* 06/30/17 03:59 Serum Total Protein 5.9 g/dL (6.4-8.9) L 06/30/17 03:59 Albumin 3.0 g/dL (3.5-5.7) L 06/30/17 03:59 Albumin/Globulin Ratio 1.0 (1.1-2.2) L 06/30/17 03:59 Stool Occult Blood Positive (Negative) A 06/27/17 15:40 - Microbiology Findings Microbiology Findings: Microbiology, Last 48 Hours 06/29/17 07:52 Urine Culture - Final Urine,Catheterized Escherichia coli 06/29/17 08:44 Blood Culture - Preliminary Peripheral Venipuncture No growth. 06/29/17 08:38 Blood Culture - Preliminary Peripheral Venipuncture No growth. - Clinical Findings Intake & Output: Intake & Output 07/01/17 07/02/17 07/02/17 23:59 07:59 15:59 Intake Total 470 / 470 550 / 550 100 / 100 Output Total 1150 / 1150 500 / 500 2650 / 2650 Balance -680 / -680 50 / 50 -2550 / -2550 Weight 84.7 kg - Attending Attestation I saw the patient with the resident agree with History and Physical exam findings. Labs and Radiology were reviewed BIPAP data was reviewed [employer]: Patient is conscious oriented x 3 but has some episodic anxiety and delirium patient is on precedex NECK : No JVD appreciated Pulmonary : Patient acute respiratory failure secondary to fluid overload in the setting of diastolic heart failure multifocal pneumonia cannot be ruled out treating with broad spectrum antibiotics . Patient was extubated yesterday will need BIPAP tonight Cardiac : Patient is hemodynamically stable to continue diuresing in the background of heart failure will transitioned to PO amiodarone GI was ok for anticoagulation will start anticoagulation , started on Eliquis Nutrition/GI: PO diet PPI prophylaxis Renal : Acute on Chronic Kidney injury improving Heme onc : Patient came as GI bleed now Hb is stable . GI scoped her negative colonoscopy and Upper GI , next step to look for small bowel AVM's needs capsule endoscopy , GI gave clearance for anticoagulation for atrial fibrillation with RVR ID : Broad spectrum antibiotics for multifocal pneumonia start descalating Musculo skeletal / skin issues : No acute issues Disposition : step down status transfer to Code status: Full Code Family/POA: , Daughter
[2017-07-02] MEDS ORDERED: Furosemide 20 MG/2 ML VIAL IVP ONE (08:01)
[2017-07-02] MEDS: *HR* Amiodarone 200 MG TABLET PO SCH (08:35)
[2017-07-02] MEDS: *HR* HYDROcodone/Acet 5/325 mg TABLET PO PRN ×2 (08:35→14:42)
[2017-07-02] MEDS: Apixaban 5 MG TABLET PO SCH ×2 (08:35→20:59)
[2017-07-02] MEDS: Docusate Oral Soln 100 MG/10 ML UDC PO SCH ×2 (08:35→20:53)
[2017-07-02] MEDS ORDERED: Aspirin Enteric Coated 81 MG Tablet PO SCH (09:00)
[2017-07-02] MEDS ORDERED: ALPRAZolam 0.5 MG TABLET PO PRN (09:28)
[2017-07-02] MEDS ORDERED: Naloxone 0.4 MG/ML INJ IVP PRN (09:28)
[2017-07-02] MEDS ORDERED: Saliva Stimulant 100ml BOTTLE PO PRN (09:28)
[2017-07-02] MEDS ORDERED: Ondansetron 4 MG/2 ML VIAL IVP PRN (09:28)
[2017-07-02] MEDS ORDERED: Acetaminophen 325 MG TABLET PO PRN (09:28)
[2017-07-02] MEDS ORDERED: Dextrose Gel 15 GM/37.5 ML TUBE PO PRN ×2 (09:28)
[2017-07-02] MEDS ORDERED: *HR* Dextrose 50 % in Water (Syg) 50 ML SYRINGE IVP PRN (09:28)
[2017-07-02] MEDS ORDERED: Melatonin 3 MG TABLET PO PRN (09:28)
[2017-07-02] MEDS ORDERED: D5% in Water 1,000 ML IVC PRN (09:28)
[2017-07-02] MEDS ORDERED: Haloperidol Lactate 5 MG/ML VIAL IVP PRN (09:28)
[2017-07-02] MEDS ORDERED: Insulin LISPRO 300 UNITS/3 ML VIAL SQ SCH ×2 (12:00→21:00)
--- NOTE | 2017-07-02 14:03 | Cardiology Progress Note ---
<Tre Leon - Last Filed: 07/02/17 14:24> Date of Encounter: 07/02/17 Time of Encounter: 10:00 Assessment and Plan (1) Atrial fibrillation with RVR Current Visit: Yes Status: Acute Rapid response: 06/29/17. -Patient was found to be in A. fib with RVR with bundle branch block. -Previous EKG demonstrated normal sinus rhythm with left bundle branch block. -Patient coded on her way to the CTA. -Was intubated and placed on a ventilator. -Was transported to the ICU. Was given amiodarone. -Echocardiogram demonstrated an ejection fraction of 55% with moderate concentric left ventricular hypertrophy. -Troponins have been as follows: 0.10, 0.56, 0.53, 0.41. Plan: -Continuous cardiac monitoring. -Amiodarone 200 mg daily. -Initial concern with anticoagulation was possible GI bleed; patient safe to anticoagulate from GI perspective. -GI has signed off and will follow up with patient in the outpatient setting. -Will start heparin, DVT protocol. (2) Elevated troponin Current Visit: Yes Status: Acute Laboratory examination on 06/29/17 demonstrated an elevated troponin at 0.10. -Subsequent troponins have been as follows: 0.56, 0.53, 0.41. -Echocardiogram was treated an ejection fraction of 55% with moderate concentric left ventricular hypertrophy. -Initiate heparin DVT protocol; patient is stable from GI's perspective. Discussion w patient/family: The assessment and plan as outlined above was discussed with the patient and/or family members who expressed understanding and agreement. All questions were answered. Thank you for involving us in the care of your patient. Please call with any questions. Subjective Principal diagnosis: Acute respiratory failure Interval history: Patient was seen and examined at bedside this morning. Patient was successfully extubated; received a dose of morphine and has been drowsy since. Is still able to answer some questions. Denies having pain or confusion. No palpitations. No complaints at this time. Objective Vital Signs, Last 4 Hours Temp Resp Pulse Ox 07/02/17 11:57 97.8 F 07/02/17 11:39 16 98 General: Other (appears drowsy due to morphine ) HEENT: Atraumatic, Normocephaly, Mucus Membranes Moist Neck: No JVD, Normal carotid pulses Cardiac: Normal S1 and S2, No Murmur, Other (Artificial valve click appreciated on auscultation ) Lungs: Normal Breath Sounds, No Wheeze, Rales, Rhonchi Neuro: Alert and responsive, No focal deficits noted Skin: No rashes noted on visualized skin Musculoskeletal: No Chest Wall Tenderness Extremities: No Clubbing, No Cyanosis, No Edema, Normal Pulses Results 07/02/17 03:40 07/02/17 03:40 Lab Results 07/01/17 07/02/17 07/02/17 18:30 03:40 03:40 WBC 5.0 Hgb 7.7 L Hct 25.7 L Plt Count 107 L Sodium 143 Potassium 3.8 4.3 Chloride 109 H Carbon Dioxide 28 BUN 36 H Creatinine 1.20 Glucose 154 H Calcium 8.5 L Magnesium 2.1 - VTE Documentation of Mechanical Device: Intermittent pneumatic compression device Consult Discharge Plan - Plan Referrals: Titi Garcia DO [Primary Care Provider] - <Shelly Connors - Last Filed: 07/02/17 19:54> Date of Encounter: 07/02/17 Assessment and Plan (1) Atrial fibrillation with RVR Current Visit: Yes Status: Acute I examined this patient and my medical decision-making was reviewed with the Resident Physician. I agree with the documented findings, disposition and treatment plan as described except to the extent set forth below. 76 YOF with PAF and h/o CAD GI bleed No ischemic work up , troponins likely demand ischemia GI cleared for NOAC to reduce risk of CVA R/B/A d/w pt and agreed to start AC Discussion w patient/family: The assessment and plan as outlined above was discussed with the patient and/or family members who expressed understanding and agreement. All questions were answered. Thank you for involving us in the care of your patient. Please call with any questions. Objective Vital Signs, Last 4 Hours Pulse Resp BP Pulse Ox 07/02/17 19:03 96 22 136/64 97 07/02/17 18:39 105 22 136/64 97 07/02/17 16:00 110 22 156/69 98 Results 07/02/17 03:40 07/02/17 03:40 Lab Results 07/02/17 07/02/17 03:40 03:40 WBC 5.0 Hgb 7.7 L Hct 25.7 L Plt Count 107 L Sodium 143 Potassium 4.3 Chloride 109 H Carbon Dioxide 28 BUN 36 H Creatinine 1.20 Glucose 154 H Calcium 8.5 L Magnesium 2.1
[2017-07-02] MEDS ORDERED: Heparin 25,000 UNIT/500 ML D5W 25,000 UNIT/500 ML BAG IVC SCH (14:30)
[2017-07-02] MEDS: Sennosides 8.6 MG TABLET PO SCH (17:14)
[2017-07-02] MEDS ORDERED: Apixaban 5 MG TABLET PO SCH (21:00)
[2017-07-03] MEDS: Dexmedetomidine HCl 400 MCG/100 ML MLS IVC SCH ×2 (01:33→06:14)
[2017-07-03] MEDS: Ipratropium/Albuterol Neb 3 ML IH SCH ×7 (04:18→20:41)
[2017-07-03] MEDS: Pantoprazole 40 MG VIAL IVP SCH ×2 (05:21→17:00)
[2017-07-03 06:05] LABS: Basophils % 0.2 %; Eosinophils # 0.1 K/mcL (0.0-0.6); Eosinophils % 1.8 %; Hematocrit 26.2 % (35.3-44.9); Hemoglobin 7.9 g/dL (11.5-15.4); Immature Granulocytes % 1.2 % (0-4); Lymphocytes # 0.7 K/mcL (0.6-4.6); Mean Corpuscular HGB Conc 30.2 g/dL (31.6-35.5); Mean Corpuscular Hemoglobin 27.5 pg (28.0-33.3); Mean Corpuscular Volume 91.3 fL (83.0-100.0); Mean Platelet Volume 10.7 fL (9.4-12.4); Monocytes # 0.6 K/mcL (0.0-1.3); Monocytes % 12.9 %; Nucleated Red Blood Cells 0.9 /100 WBC (0); Platelet Count 108 K/mcL (140-400); Red Blood Count 2.87 M/mcL (3.82-4.97); Red Cell Distribution Width 15.4 % (11.5-14.5); Segmented Neutrophils % 68.9 %
[2017-07-03 06:17] LABS: BUN/Creatinine Ratio 29 (6-26); Blood Urea Nitrogen 28 mg/dL (8-23); Calcium 8.5 mg/dL (8.6-10.3); Carbon Dioxide 25 mEq/L (23-29); Chloride 105 mEq/L (98-107); Glucose 131 mg/dL (70-105); Magnesium 1.8 mg/dL (1.6-2.6); Osmolality,Calculated 295 (280-300); Potassium 3.4 mEq/L (3.5-5.1); Sodium 139 mEq/L (136-145); eGFR For African Americans > 60 (> 60); eGFR For Non-African Americans 57 (> 60)
[2017-07-03] MEDS: FentaNYL (PF) 1,000 MCG in 0.9 % Sodium Chloride 80 ML IVC SCH (06:54)
[2017-07-03] MEDS: Insulin LISPRO 300 UNITS/3 ML VIAL SQ SCH ×4 (07:38→21:05)
[2017-07-03] MEDS: Piperacillin/Tazobactam 3.375 GM/200 ML BAG IVPB SCH ×3 (07:59→17:00)
[2017-07-03] MEDS: Apixaban 5 MG TABLET PO SCH ×2 (08:00→20:04)
[2017-07-03] MEDS: *HR* HYDROcodone/Acet 5/325 mg TABLET PO PRN ×4 (08:00→23:47)
[2017-07-03] MEDS: Docusate Oral Soln 100 MG/10 ML UDC PO SCH ×2 (08:00→20:04)
[2017-07-03] MEDS: Sennosides 8.6 MG TABLET PO SCH (08:13)
--- NOTE | 2017-07-03 08:40 | Pulmonology Progress Note ---
<RobertjeChico - Last Filed: 07/03/17 08:37> Date of Encounter: 07/03/17 Time of Encounter: 08:37 Assessment and Plan (1) Acute respiratory failure Current Visit: Yes Status: Acute Acute respiratory failure in the setting of bilateral pulmonary infiltrates. Pulmonary edeam vs ARDS vs. Multifocal pna Patient has a history of CABG and bioprosthetic aortic valve and his risk for flash pulmonary edema. has received 4L NS and 2 units PRBC Patient intubated on mechanical ventilation patient started on Vanc and zosyn for potential PNA vanc stopped patient anxious on vent started precedex, home xanax and home cymbalta Patient extubated successfully No longer requiring Phenylepherine Plan: continue Abx continue oxygen supplementation as needed continue anxiolytics patient safe for transfer to Qualifiers: Respiratory failure complication: hypoxia and hypercapnia Qualified Code(s) : J96.01 - Acute respiratory failure with hypoxia; J96.02 - Acute respiratory failure with hypercapnia; J96.02 - Acute respiratory failure with hypercapnia; J96.02 - Acute respiratory failure with hypercapnia (2) Respiratory arrest Current Visit: Yes Status: Acute Patient developed respiratory arrest on June 29 at 1800. See code note for further details. Patient was stabilized and now off pressors and satting well on NC (3) Pulmonary edema Current Visit: Yes Status: Acute Chest X ray for pulmonary edema Patient given 1 dose of 40mg IV lasix known hx of dCHF Plan: continue to give 20 IV lasix dialy as long as Cr is stable. Continue to monitor Qualifiers: Chronicity: acute Qualified Code(s): J81.0 - Acute pulmonary edema (4) ARISTIDES (acute kidney injury) Current Visit: Yes Status: Acute Acute on chronic Kidney injury CKD Stage 3 Cr 1.37 on presentation to ICU, Cr 0.95 this morning Plan: avoid nephro toxins continue to monitor Continue foly for strict Is&Os (5) Lower GI bleed Current Visit: Yes Status: Acute Patiented admitted for acute GI Bleed. Underwent EGD Pt has received 2 units PRBC No source of GI bleeding found on endoscopy, underwent colonoscopy April 2017 with findings of diverticulosis in the sigmoid colon, one 6 mm polyp in the proximal transverse colon, tortuous colon. No overt bleeding noticed GI signed off will do capsule study as outpatient Hgb Stable Plan: continue to monitor H/H (6) COPD (chronic obstructive pulmonary disease) Current Visit: Yes Status: Acute Pt with PMHx of COPD patient started on duonebs Plan: Continue Duonebs Qualifiers: COPD type: unspecified COPD Qualified Code(s): J44.9 - Chronic obstructive pulmonary disease, unspecified (7) Atrial fibrillation with RVR Current Visit: Yes Status: Acute Patient went into a fib c RVR yesterday Patient also has a LBBB present on prior ekgs Started on Amiodarone drip amiodarone drip d/c'd yesterday started on PO amiodarone currently RRR Plan: continue PO amiodarone continue ellequis cardiology on board appreciate recs continue to monitor (8) Elevated troponin Current Visit: Yes Status: Acute Trops 0.1, 0.56, 053, 0.41 Echo showed EF 55% LVH l Plan: Cardiology on board appreciate recs patient started on ellequis for anticoagulation (9) Hypokalemia Current Visit: Yes Status: Acute K 3.4 today 2.4 on admission, 4.3 yesterday K has been repleted multiple times placed patient on electrolyte protocol. Plan: replete per protocol replete Mg per protocol (10) Hypomagnesemia Current Visit: Yes Status: Acute Mg 1.6 at first check Mg 2.1 yesterday Mg 1.8 today Plan: replete per electrolyte protocol (11) Hyperglycemia Current Visit: Yes Status: Acute Pt not a known diabetic but has elevated glucose through out admission. Went as high as 329 yesterday Patient started on SSI Glucose 131 today pt cleared for diet so switched to ACHS checks and ssi Plan: continue SSI continue to monitor (12) UTI (urinary tract infection) Current Visit: Yes Status: Acute Present upon admission Postive Ucx for e. coli Plan: Continue zosyn Qualifiers: Urinary tract infection type: acute cystitis Hematuria presence: without hematuria Qualified Code(s): N30.00 - Acute cystitis without hematuria (13) Pneumonia Current Visit: Yes Status: Suspected Latest CXR: Patchy airspace opacities bilaterally, likely related to pulmonary edema versus pneumonia, mildly improved in the left hemithorax. Concern for pneumonia so treated with broad specturm abx to cover any mrsa or gram negative causes. De-escalated to just zosyn yesterday. WBC down trending Plan: continue zosyn continue to monitor Qualifiers: Pneumonia type: due to unspecified organism Laterality: bilateral Lung location: unspecified part of lung Qualified Code(s): J18.9 - Pneumonia, unspecified organism (14) DVT prophylaxis Current Visit: Yes Status: Acute Patient on SCDs Not on chemical anticoagulation originally 2/ to GI bleed Patient started on ellequis Plan: continue SCDs Cardiology is on board. continue ellequis Subjective Principal diagnosis: Acute respiratory failure Interval history: Patient well controlled on PO amiodarone. Pt has orders to transfer to awaiting a bed. Patient continues to have anxiety and delirium. Objective PUL Vital signs: Last Vital Signs Temp 98.2 F 07/03/17 08:17 Pulse 78 07/03/17 08:00 Resp 22 07/03/17 07:00 BP 134/71 07/03/17 07:00 Pulse Ox 97 07/03/17 07:00 General appearance: other (confused) Eyes: nonicteric ENT: oropharynx moist Neck: supple Effort: mildly labored Auscultation: bilateral: diminished breath sounds Cardiovascular: regular rate and rhythm Gastrointestinal: normoactive bowel sounds Integumentary: normal Extremities: no cyanosis non-focal exam, unable to assess due to mental status Results - Laboratory Findings CBC and BMP: 07/03/17 05:49 07/03/17 05:49 ABG ABG pH 7.42 pH Units (7.32-7.45) 07/02/17 03:00 ABG pCO2 42 mmHg (35-45) 07/02/17 03:00 ABG pO2 133 mmHg (85-104) H 07/02/17 03:00 ABG O2 Saturation 99 % (95-98) H 07/02/17 03:00 PT/INR, D-dimer PT 12.6 Seconds (9.4-12.1) H 06/27/17 15:58 Abnormal lab findings: Abnormal lab results RBC 2.87 M/mcL (3.82-4.97) L 07/03/17 05:49 Hgb 7.9 g/dL (11.5-15.4) L 07/03/17 05:49 Hct 26.2 % (35.3-44.9) L 07/03/17 05:49 MCH 27.5 pg (28.0-33.3) L 07/03/17 05:49 MCHC 30.2 g/dL (31.6-35.5) L 07/03/17 05:49 RDW 15.4 % (11.5-14.5) H 07/03/17 05:49 Plt Count 108 K/mcL (140-400) L 07/03/17 05:49 Nucleated RBCs/100 WBC 0.9 /100 WBC (0) H 07/03/17 05:49 PT 12.6 Seconds (9.4-12.1) H 06/27/17 15:58 ABG pO2 133 mmHg (85-104) H 07/02/17 03:00 ABG HCO3 28 mEq/L (21-27) H 07/02/17 03:00 ABG Total CO2 29 mEq/L (20-26) H 07/02/17 03:00 ABG O2 Saturation 99 % (95-98) H 07/02/17 03:00 VBG pO2 81 mmHg (25-50) H 07/01/17 04:57 Potassium 3.4 mEq/L (3.5-5.1) L 07/03/17 05:49 BUN 28 mg/dL (8-23) H 07/03/17 05:49 Est GFR (Non-Af Amer) 57 (> 60) L 07/03/17 05:49 BUN/Creatinine Ratio 29 (6-26) H 07/03/17 05:49 Glucose 131 mg/dL (70-105) H 07/03/17 05:49 POC Glucose 129 (58-89) H 07/02/17 19:11 Lactic Acid 2.6 mmol/L (0.5-2.2) H 06/29/17 18:30 Calcium 8.5 mg/dL (8.6-10.3) L 07/03/17 05:49 Troponin I 0.41 ng/mL (< 0.04) H* 06/30/17 03:59 Serum Total Protein 5.9 g/dL (6.4-8.9) L 06/30/17 03:59 Albumin 3.0 g/dL (3.5-5.7) L 06/30/17 03:59 Albumin/Globulin Ratio 1.0 (1.1-2.2) L 06/30/17 03:59 Stool Occult Blood Positive (Negative) A 06/27/17 15:40 - Microbiology Findings Microbiology Findings: Microbiology, Last 48 Hours 06/29/17 07:52 Urine Culture - Final Urine,Catheterized Escherichia coli 06/29/17 08:44 Blood Culture - Preliminary Peripheral Venipuncture No growth. 06/29/17 08:38 Blood Culture - Preliminary Peripheral Venipuncture No growth. - Clinical Findings Intake & Output: Intake & Output 07/02/17 07/03/17 07/03/17 23:59 07:59 15:59 Intake Total 485 / 485 850 / 850 42 / 42 Output Total 200 / 200 450 / 450 200 / 200 Balance 285 / 285 400 / 400 -158 / -158 Weight 84.5 kg - VTE Documentation of Mechanical Device: Intermittent pneumatic compression device Consult Discharge Plan - Plan Referrals: Titi Garcia DO [Primary Care Provider] - <Camacho Harris - Last Filed: 07/03/17 22:32> Date of Encounter: 07/03/17 Objective PUL Vital signs: Last Vital Signs Temp 98.2 F 07/03/17 18:47 Pulse 98 07/03/17 18:47 Resp 18 07/03/17 18:47 BP 132/75 07/03/17 20:53 Pulse Ox 95 07/03/17 18:47 Results - Laboratory Findings CBC and BMP: 07/03/17 05:49 07/03/17 05:49 ABG ABG pH 7.42 pH Units (7.32-7.45) 07/02/17 03:00 ABG pCO2 42 mmHg (35-45) 07/02/17 03:00 ABG pO2 133 mmHg (85-104) H 07/02/17 03:00 ABG O2 Saturation 99 % (95-98) H 07/02/17 03:00 PT/INR, D-dimer PT 12.6 Seconds (9.4-12.1) H 06/27/17 15:58 Abnormal lab findings: Abnormal lab results RBC 2.87 M/mcL (3.82-4.97) L 07/03/17 05:49 Hgb 7.9 g/dL (11.5-15.4) L 07/03/17 05:49 Hct 26.2 % (35.3-44.9) L 07/03/17 05:49 MCH 27.5 pg (28.0-33.3) L 07/03/17 05:49 MCHC 30.2 g/dL (31.6-35.5) L 07/03/17 05:49 RDW 15.4 % (11.5-14.5) H 07/03/17 05:49 Plt Count 108 K/mcL (140-400) L 07/03/17 05:49 Nucleated RBCs/100 WBC 0.9 /100 WBC (0) H 07/03/17 05:49 PT 12.6 Seconds (9.4-12.1) H 06/27/17 15:58 ABG pO2 133 mmHg (85-104) H 07/02/17 03:00 ABG HCO3 28 mEq/L (21-27) H 07/02/17 03:00 ABG Total CO2 29 mEq/L (20-26) H 07/02/17 03:00 ABG O2 Saturation 99 % (95-98) H 07/02/17 03:00 VBG pO2 81 mmHg (25-50) H 07/01/17 04:57 Potassium 3.4 mEq/L (3.5-5.1) L 07/03/17 05:49 BUN 28 mg/dL (8-23) H 07/03/17 05:49 Est GFR (Non-Af Amer) 57 (> 60) L 07/03/17 05:49 BUN/Creatinine Ratio 29 (6-26) H 07/03/17 05:49 Glucose 131 mg/dL (70-105) H 07/03/17 05:49 POC Glucose 141 (58-89) H 07/03/17 21:04 Lactic Acid 2.6 mmol/L (0.5-2.2) H 06/29/17 18:30 Calcium 8.5 mg/dL (8.6-10.3) L 07/03/17 05:49 Troponin I 0.41 ng/mL (< 0.04) H* 06/30/17 03:59 Serum Total Protein 5.9 g/dL (6.4-8.9) L 06/30/17 03:59 Albumin 3.0 g/dL (3.5-5.7) L 06/30/17 03:59 Albumin/Globulin Ratio 1.0 (1.1-2.2) L 06/30/17 03:59 Stool Occult Blood Positive (Negative) A 06/27/17 15:40 - Clinical Findings Intake & Output: Intake & Output 07/03/17 07/03/17 07/03/17 07:59 15:59 23:59 Intake Total 850 / 850 1148 / 1148 Output Total 450 / 450 1950 / 1950 Balance 400 / 400 -802 / -802 Weight 84.5 kg - Attending Attestation I saw the patient with the resident agree with History and Physical exam findings. 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 Started on anti- coagulation Nutrition/GI: PO diet PPI prophylaxis Renal : Labs reviewed Heme onc : Patient came as GI bleed now Hb is stable . GI scoped her negative colonoscopy and Upper GI , next step to look for small bowel AVM's needs capsule endoscopy , GI gave clearance for anticoagulation for atrial fibrillation with RVR no evidence of bleeding on eliquis ID : Broad spectrum antibiotics for multifocal pneumonia to continue gram negative coverage for 5-7 days Musculo skeletal / skin issues : No acute issues Disposition : Patient is stable can be transferred to medical telemetry Code status: Full Code Family/POA: , Daughter
[2017-07-03] MEDS ORDERED: Furosemide 20 MG/2 ML VIAL IVP ONE (08:43)
[2017-07-03] MEDS ORDERED: Aspirin Enteric Coated 81 MG Tablet PO SCH (09:00)
[2017-07-03] MEDS ORDERED: *HR* Amiodarone 200 MG TABLET PO SCH (09:00)
[2017-07-03] MEDS ORDERED: *HR* Morphine 2 MG/ML SYRINGE IVP PRN (11:17)
[2017-07-03] MEDS ORDERED: Ondansetron 4 MG/2 ML VIAL IVP PRN (11:17)
[2017-07-03] MEDS ORDERED: Naloxone 0.4 MG/ML INJ IVP PRN (11:17)
[2017-07-03] MEDS ORDERED: Dextrose Gel 15 GM/37.5 ML TUBE PO PRN ×2 (11:17)
[2017-07-03] MEDS ORDERED: Acetaminophen 325 MG TABLET PO PRN (11:17)
[2017-07-03] MEDS ORDERED: Melatonin 3 MG TABLET PO PRN (11:17)
[2017-07-03] MEDS ORDERED: Haloperidol Lactate 5 MG/ML VIAL IVP PRN (11:17)
[2017-07-03] MEDS ORDERED: D5% in Water 1,000 ML IVC PRN (11:17)
[2017-07-03] MEDS ORDERED: *HR* Dextrose 50 % in Water (Syg) 50 ML SYRINGE IVP PRN (11:17)
[2017-07-03] MEDS: Metoprolol XL (24 HR) Succ 25 MG TAB.ER.24H PO SCH (11:39)
[2017-07-03] MEDS: Baclofen 10 MG TABLET PO PRN (11:40)
[2017-07-03] MEDS: ALPRAZolam 0.5 MG TABLET PO PRN (23:47)
[2017-07-04] MEDS: Ipratropium/Albuterol Neb 3 ML IH SCH ×6 (00:07→19:52)
[2017-07-04] MEDS: Piperacillin/Tazobactam 3.375 GM/200 ML BAG IVPB SCH ×4 (00:22→17:39)
[2017-07-04] MEDS: Pantoprazole 40 MG VIAL IVP SCH ×2 (05:40→17:40)
[2017-07-04 06:41] LABS: Basophils % 0.5 %; Eosinophils # 0.1 K/mcL (0.0-0.6); Eosinophils % 2.1 %; Hematocrit 29.6 % (35.3-44.9); Hemoglobin 8.9 g/dL (11.5-15.4); Immature Granulocytes % 1.6 % (0-4); Lymphocytes # 0.9 K/mcL (0.6-4.6); Lymphocytes % 16.3 %; Mean Corpuscular HGB Conc 30.1 g/dL (31.6-35.5); Mean Corpuscular Hemoglobin 27.4 pg (28.0-33.3); Mean Corpuscular Volume 91.1 fL (83.0-100.0); Mean Platelet Volume 10.8 fL (9.4-12.4); Monocytes # 0.6 K/mcL (0.0-1.3); Monocytes % 10.9 %; Neutrophils # 3.8 K/mcL (1.6-8.9); Platelet Count 144 K/mcL (140-400); Red Blood Count 3.25 M/mcL (3.82-4.97); Red Cell Distribution Width 15.6 % (11.5-14.5); Segmented Neutrophils % 68.6 %
[2017-07-04 06:55] LABS: BUN/Creatinine Ratio 27 (6-26); Blood Urea Nitrogen 23 mg/dL (8-23); Calcium 8.7 mg/dL (8.6-10.3); Carbon Dioxide 24 mEq/L (23-29); Chloride 107 mEq/L (98-107); Glucose 103 mg/dL (70-105); Magnesium 2.1 mg/dL (1.6-2.6); Osmolality,Calculated 300 (280-300); Potassium 3.2 mEq/L (3.5-5.1); Sodium 143 mEq/L (136-145); eGFR For African Americans > 60 (> 60); eGFR For Non-African Americans > 60 (> 60)
[2017-07-04] MEDS: Aspirin Enteric Coated 81 MG Tablet PO SCH (07:37)
[2017-07-04] MEDS: *HR* HYDROcodone/Acet 5/325 mg TABLET PO PRN ×3 (07:37→17:40)
[2017-07-04] MEDS: Apixaban 5 MG TABLET PO SCH ×2 (07:37→21:33)
[2017-07-04] MEDS: Insulin LISPRO 300 UNITS/3 ML VIAL SQ SCH ×4 (07:38→21:28)
[2017-07-04] MEDS: Docusate Oral Soln 100 MG/10 ML UDC PO SCH ×2 (07:38→21:32)
[2017-07-04] MEDS: Sennosides 8.6 MG TABLET PO SCH (07:38)
[2017-07-04] MEDS: Metoprolol XL (24 HR) Succ 25 MG TAB.ER.24H PO SCH ×2 (07:38→10:30)
[2017-07-04] MEDS: *HR* Amiodarone 200 MG TABLET PO SCH (07:38)
[2017-07-04] MEDS: ALPRAZolam 0.5 MG TABLET PO PRN (07:42)
[2017-07-04] MEDS: Saliva Stimulant 100ml BOTTLE PO PRN ×2 (07:58→14:58)
[2017-07-04] MEDS ORDERED: Potassium Chloride Elixir 20 MEQ/15 ML UDC PO ONE (08:30)
--- NOTE | 2017-07-04 09:03 | Internal Med Progress Note ---
Date of Encounter: 07/04/17 Time of Encounter: 09:00 - Assessment and plan (1) Acute respiratory failure Current Visit: Yes Status: Acute Assessment and plan: Secondary to pulmonary edema, possible pneumonia, status post intubation and extubation. Currently saturating well on 3 L/m nasal cannula. Continue current management. Qualifiers: Respiratory failure complication: hypoxia and hypercapnia Qualified Code(s) : J96.01 - Acute respiratory failure with hypoxia; J96.02 - Acute respiratory failure with hypercapnia; J96.02 - Acute respiratory failure with hypercapnia; J96.02 - Acute respiratory failure with hypercapnia (2) Pulmonary edema Current Visit: Yes Status: Resolved Assessment and plan: Likely flash pulmonary edema. Received IV Lasix in the ICU, will change to PO Lasix. Continue to monitor urine output. Qualifiers: Chronicity: acute Qualified Code(s): J81.0 - Acute pulmonary edema (3) Hyperglycemia Current Visit: Yes Status: Acute Assessment and plan: Not a known diabetic but noted to have elevated blood sugars while in ICU, could be stress-induced. Check hemoglobin A1c and continue Accu-Chek blood glucose monitoring with sliding scale insulin as needed. (4) Pneumonia Current Visit: Yes Status: Suspected Assessment and plan: Initial chest x-ray concerning for bilateral multifocal infiltrates versus underlying pulmonary edema. 2 sets of blood cultures remained negative. Continue IV Zosyn for now. Supportive care and supplemental oxygen as needed. Qualifiers: Pneumonia type: due to unspecified organism Laterality: bilateral Lung location: unspecified part of lung Qualified Code(s): J18.9 - Pneumonia, unspecified organism (5) UTI (urinary tract infection) Current Visit: Yes Status: Acute Assessment and plan: Urinalysis was suggestive of UTI, urine culture grows pansensitive Escherichia coli. Continue IV Zosyn. Qualifiers: Urinary tract infection type: acute cystitis Hematuria presence: without hematuria Qualified Code(s): N30.00 - Acute cystitis without hematuria (6) Encephalopathy acute Current Visit: Yes Status: Acute Assessment and plan: Continues to have some delirium due to underlying medical conditions and prolonged ICU stay. Supportive care. Physical and occupational therapy evaluation. Fall precautions. (7) CKD (chronic kidney disease) Current Visit: Yes Status: Chronic Assessment and plan: Suspected. Serum creatinine and GFR currently noted to be normal. Qualifiers: Chronic kidney disease stage: stage 3 (moderate) Qualified Code(s): N18.3 - Chronic kidney disease, stage 3 (moderate) (8) Physical deconditioning Current Visit: Yes Status: Chronic (9) HTN (hypertension) Current Visit: Yes Status: Chronic Assessment and plan: Blood pressure noted to be slightly elevated. Increase metoprolol. Continue to monitor closely. Qualifiers: Hypertension type: essential hypertension Qualified Code(s): I10 - Essential (primary) hypertension (10) CAD (coronary artery disease) Current Visit: Yes Status: Chronic Qualifiers: Coronary Disease-Associated Artery/Lesion type: [place] artery [place] vs. transplanted heart: [place] heart Associated angina: without angina Qualified Code(s): I25.10 - Atherosclerotic heart disease of [place] coronary artery without angina pectoris (11) Hypokalemia Current Visit: Yes Status: Acute Assessment and plan: Magnesium noted to be normal. Supplement with oral potassium chloride, start scheduled potassium chloride daily supplements. (12) ARISTIDES (acute kidney injury) Current Visit: Yes Status: Resolved (13) COPD (chronic obstructive pulmonary disease) Current Visit: Yes Status: Chronic Assessment and plan: Continue bronchodilators and supplemental oxygen as needed. Qualifiers: COPD type: unspecified COPD Qualified Code(s): J44.9 - Chronic obstructive pulmonary disease, unspecified (14) Atrial fibrillation with RVR Current Visit: Yes Status: Chronic Assessment and plan: Heart rate currently well controlled. Continue telemetry monitoring. Continue beta tiffanie, Amiodarone and long-term anticoagulation with Eliquis. Noted to have anemia but GI plans for outpatient capsule endoscopy; recent EGD and colonoscopy are reportedly normal. (15) Anemia Current Visit: Yes Status: Acute Assessment and plan: Hb noted to be around 11 in Apr 2017 but dropped to 6 during this admission; GI has been consulted and recommend outpatient capsule endoscopy; Qualifiers: Anemia type: iron deficiency Iron deficiency anemia type: chronic blood loss Qualified Code(s): D50.0 - Iron deficiency anemia secondary to blood loss (chronic) - Subjective Interval history: Noted to be drowsy and lethargic; able to answer only a few questions; reports feeling rough; has some epigastric pain; not in distress; poor appetite; - Constitutional Vitals: Temp Pulse Resp BP Pulse Ox 99.0 F 90 17 186/77 97 07/04/17 07:09 07/04/17 07:09 07/04/17 07:09 07/04/17 07:09 07/04/17 07:09 General appearance: Present: A&O X 2 (slow to answer, appears chronically ill), answers questions appropriately - Respiratory Respiratory exam: Present: CTAB, rales (B/L coarse breath sounds and basal crackles, left>right). Absent: accessory muscle use, rhonchi, wheezes - Cardiovascular Cardiovascular exam: Present: irregular rhythm, +S1, +S2. Absent: diastolic murmur, gallop, rubs, systolic murmur - GI/Abdominal GI/Abdominal exam: Present: normal bowel sounds, soft, no peritoneal signs. Absent: distended, tenderness - Extremities Exam Extremities exam: Present: full ROM, warm, radial pulses palpable and symmetrical. Absent: calf tenderness, cyanotic, pedal edema - Neurological Exam Neurological exam: Present: CN II-XII intact, no focal deficits. Absent: pronater drift, facial droop, speech deficit Internal Medicine: Result - Labs CBC & Chem 7: 07/04/17 05:58 07/04/17 05:58 Labs: Short CBC 07/04/17 Range/Units 05:58 WBC 5.6 (4.3-11.1) K/mcL Hgb 8.9 L (11.5-15.4) g/dL Hct 29.6 L (35.3-44.9) % Plt Count 144 (140-400) K/mcL Neutrophils # 3.8 (1.6-8.9) K/mcL BMP 07/04/17 05:58 Sodium 143 Potassium 3.2 L Chloride 107 Carbon Dioxide 24 BUN 23 Creatinine 0.85 Glucose 103 Calcium 8.7 - ABG Interpretation ABG results: ABG ABG pH 7.42 pH Units (7.32-7.45) 07/02/17 03:00 ABG pCO2 42 mmHg (35-45) 07/02/17 03:00 ABG pO2 133 mmHg (85-104) H 07/02/17 03:00 ABG O2 Saturation 99 % (95-98) H 07/02/17 03:00 PT/INR, D-dimer PT 12.6 Seconds (9.4-12.1) H 06/27/17 15:58 - VTE Documentation of Mechanical Device: Intermittent pneumatic compression device Consult Discharge Plan - Plan Referrals: Titi Garcia DO [Primary Care Provider] -
[2017-07-04] MEDS: Baclofen 10 MG TABLET PO PRN (14:54)
[2017-07-04] MEDS: Furosemide 20 MG TABLET PO SCH (14:54)
[2017-07-05] MEDS: Ipratropium/Albuterol Neb 3 ML IH SCH ×7 (00:19→23:22)
[2017-07-05] MEDS: Piperacillin/Tazobactam 3.375 GM/200 ML BAG IVPB SCH ×3 (00:49→16:17)
[2017-07-05] MEDS: *HR* HYDROcodone/Acet 5/325 mg TABLET PO PRN ×4 (03:45→21:01)
[2017-07-05] MEDS: Pantoprazole 40 MG VIAL IVP SCH (06:02)
[2017-07-05] MEDS: Metoprolol XL (24 HR) Succ 25 MG TAB.ER.24H PO SCH (08:00)
[2017-07-05] MEDS: Furosemide 20 MG TABLET PO SCH (08:01)
[2017-07-05] MEDS: Sennosides 8.6 MG TABLET PO SCH (08:01)
[2017-07-05] MEDS: *HR* Amiodarone 200 MG TABLET PO SCH (08:01)
[2017-07-05] MEDS: Apixaban 5 MG TABLET PO SCH ×2 (08:01→21:01)
[2017-07-05] MEDS: Aspirin Enteric Coated 81 MG Tablet PO SCH (08:01)
[2017-07-05] MEDS: Docusate Oral Soln 100 MG/10 ML UDC PO SCH ×2 (08:03→21:01)
[2017-07-05] MEDS: Insulin LISPRO 300 UNITS/3 ML VIAL SQ SCH ×4 (08:10→22:34)
[2017-07-05] MEDS: amLODIPine 5 MG TABLET PO SCH (08:50)
[2017-07-05 09:12] LABS: Basophils % 0.6 %; Eosinophils # 0.1 K/mcL (0.0-0.6); Eosinophils % 2.2 %; Hematocrit 30.1 % (35.3-44.9); Hemoglobin 9.1 g/dL (11.5-15.4); Immature Granulocytes % 1.8 % (0-4); Lymphocytes # 0.9 K/mcL (0.6-4.6); Lymphocytes % 18.4 %; Mean Corpuscular HGB Conc 30.2 g/dL (31.6-35.5); Mean Corpuscular Hemoglobin 27.3 pg (28.0-33.3); Mean Corpuscular Volume 90.4 fL (83.0-100.0); Mean Platelet Volume 10.5 fL (9.4-12.4); Monocytes # 0.6 K/mcL (0.0-1.3); Monocytes % 11.1 %; Neutrophils # 3.3 K/mcL (1.6-8.9); Platelet Count 163 K/mcL (140-400); Red Blood Count 3.33 M/mcL (3.82-4.97); Red Cell Distribution Width 15.7 % (11.5-14.5); Segmented Neutrophils % 65.9 %
[2017-07-05 09:19] LABS: BUN/Creatinine Ratio 22 (6-26); Blood Urea Nitrogen 20 mg/dL (8-23); Calcium 8.5 mg/dL (8.6-10.3); Carbon Dioxide 30 mEq/L (23-29); Chloride 106 mEq/L (98-107); Glucose 113 mg/dL (70-105); Magnesium 1.9 mg/dL (1.6-2.6); Osmolality,Calculated 295 (280-300); Potassium 3.5 mEq/L (3.5-5.1); Sodium 141 mEq/L (136-145); eGFR For African Americans > 60 (> 60); eGFR For Non-African Americans > 60 (> 60)
--- NOTE | 2017-07-05 09:27 | Internal Med Progress Note ---
Date of Encounter: 07/05/17 Time of Encounter: 09:23 - Assessment and plan (1) Acute respiratory failure Current Visit: Yes Status: Acute Assessment and plan: Secondary to pulmonary edema, possible pneumonia, status post intubation and extubation. Currently saturating well on 2 L/m nasal cannula. Continue current management. Qualifiers: Respiratory failure complication: hypoxia and hypercapnia Qualified Code(s) : J96.01 - Acute respiratory failure with hypoxia; J96.02 - Acute respiratory failure with hypercapnia; J96.02 - Acute respiratory failure with hypercapnia; J96.02 - Acute respiratory failure with hypercapnia (2) Pulmonary edema Current Visit: Yes Status: Resolved Assessment and plan: Likely flash pulmonary edema. Received IV Lasix in the ICU, continue PO Lasix. Continue to monitor urine output. Qualifiers: Chronicity: acute Qualified Code(s): J81.0 - Acute pulmonary edema (3) Hyperglycemia Current Visit: Yes Status: Acute Assessment and plan: Not a known diabetic but noted to have elevated blood sugars while in ICU, could be stress-induced. Hemoglobin A1c noted to be 5%, blood sugars currently improving; continue Accu-Chek blood glucose monitoring with sliding scale insulin as needed. (4) Pneumonia Current Visit: Yes Status: Suspected Assessment and plan: Initial chest x-ray concerning for bilateral multifocal infiltrates versus underlying pulmonary edema. 2 sets of blood cultures remained negative. Continue IV Zosyn for now, to complete a 10 day course of antibiotics. Supportive care and supplemental oxygen as needed. Qualifiers: Pneumonia type: due to unspecified organism Laterality: bilateral Lung location: unspecified part of lung Qualified Code(s): J18.9 - Pneumonia, unspecified organism (5) UTI (urinary tract infection) Current Visit: Yes Status: Acute Assessment and plan: Urinalysis was suggestive of UTI, urine culture grows pansensitive Escherichia coli. Continue IV Zosyn. Qualifiers: Urinary tract infection type: acute cystitis Hematuria presence: without hematuria Qualified Code(s): N30.00 - Acute cystitis without hematuria (6) Encephalopathy acute Current Visit: Yes Status: Acute Assessment and plan: Continues to have some delirium due to underlying medical conditions and prolonged ICU stay. Supportive care. Physical and occupational therapy evaluation. Fall precautions. senior web services developer consulted for safe discharge planning. Patient would likely benefit from placement in extended care facility for continued rehabilitation. (7) CKD (chronic kidney disease) Current Visit: Yes Status: Chronic Assessment and plan: Suspected. Serum creatinine and GFR currently noted to be normal. Qualifiers: Chronic kidney disease stage: stage 3 (moderate) Qualified Code(s): N18.3 - Chronic kidney disease, stage 3 (moderate) (8) Physical deconditioning Current Visit: Yes Status: Chronic (9) HTN (hypertension) Current Visit: Yes Status: Chronic Assessment and plan: Blood pressure continues to be uncontrolled. Continue metoprolol and start Norvasc. Continue to monitor closely. Qualifiers: Hypertension type: essential hypertension Qualified Code(s): I10 - Essential (primary) hypertension (10) CAD (coronary artery disease) Current Visit: Yes Status: Chronic Qualifiers: Coronary Disease-Associated Artery/Lesion type: [place] artery [place] vs. transplanted heart: [place] heart Associated angina: without angina Qualified Code(s): I25.10 - Atherosclerotic heart disease of [place] coronary artery without angina pectoris (11) Hypokalemia Current Visit: Yes Status: Resolved (12) ARISTIDES (acute kidney injury) Current Visit: Yes Status: Resolved (13) COPD (chronic obstructive pulmonary disease) Current Visit: Yes Status: Chronic Assessment and plan: Continue bronchodilators and supplemental oxygen as needed. Qualifiers: COPD type: unspecified COPD Qualified Code(s): J44.9 - Chronic obstructive pulmonary disease, unspecified (14) Atrial fibrillation with RVR Current Visit: Yes Status: Chronic Assessment and plan: Heart rate currently well controlled. Continue telemetry monitoring. Continue beta tiffanie, Amiodarone and long-term anticoagulation with Eliquis. Noted to have anemia but GI plans for outpatient capsule endoscopy; recent EGD and colonoscopy are reportedly normal. (15) Anemia Current Visit: Yes Status: Acute Qualifiers: Anemia type: iron deficiency Iron deficiency anemia type: chronic blood loss Qualified Code(s): D50.0 - Iron deficiency anemia secondary to blood loss (chronic) - Subjective Interval history: Continues to report lower chest pain, reportedly from CPR she had a few days ago ; no nausea, vomiting, dysphagia, abdominal pain; no shortness of breath, she does have generalized weakness and has not been out of bed since hospitalization ; - Constitutional Vitals: Temp Pulse Resp BP Pulse Ox 97.8 F 70 16 161/75 98 07/05/17 07:23 07/05/17 07:23 07/05/17 07:36 07/05/17 07:23 07/05/17 07:36 General appearance: Present: A&O X 2 (slow to answer, appears chronically ill), answers questions appropriately - Respiratory Respiratory exam: Present: CTAB, rales. Absent: accessory muscle use, rhonchi, wheezes - Cardiovascular Cardiovascular exam: Present: irregular rhythm, +S1, +S2. Absent: diastolic murmur, gallop, rubs, systolic murmur - GI/Abdominal GI/Abdominal exam: Present: normal bowel sounds, soft, no peritoneal signs. Absent: bruit, distended, tenderness Internal Medicine: Result - Labs CBC & Chem 7: 07/05/17 08:55 07/05/17 08:55 Labs: Short CBC 07/05/17 Range/Units 08:55 WBC 4.9 (4.3-11.1) K/mcL Hgb 9.1 L (11.5-15.4) g/dL Hct 30.1 L (35.3-44.9) % Plt Count 163 (140-400) K/mcL Neutrophils # 3.3 (1.6-8.9) K/mcL BMP 07/05/17 08:55 Sodium 141 Potassium 3.5 Chloride 106 Carbon Dioxide 30 H BUN 20 Creatinine 0.90 Glucose 113 H Calcium 8.5 L - ABG Interpretation ABG results: ABG ABG pH 7.42 pH Units (7.32-7.45) 07/02/17 03:00 ABG pCO2 42 mmHg (35-45) 07/02/17 03:00 ABG pO2 133 mmHg (85-104) H 07/02/17 03:00 ABG O2 Saturation 99 % (95-98) H 07/02/17 03:00 PT/INR, D-dimer PT 12.6 Seconds (9.4-12.1) H 06/27/17 15:58 - VTE Documentation of Mechanical Device: Intermittent pneumatic compression device Consult Discharge Plan - Plan Referrals: Titi Garcia DO [Primary Care Provider] -
[2017-07-05] MEDS: Baclofen 10 MG TABLET PO PRN (19:15)
[2017-07-06] MEDS: Piperacillin/Tazobactam 3.375 GM/200 ML BAG IVPB SCH ×2 (01:13→09:11)
[2017-07-06] MEDS: *HR* HYDROcodone/Acet 5/325 mg TABLET PO PRN ×4 (01:14→18:34)
[2017-07-06] MEDS: Ipratropium/Albuterol Neb 3 ML IH SCH ×5 (03:10→19:49)
[2017-07-06] MEDS: Insulin LISPRO 300 UNITS/3 ML VIAL SQ SCH ×3 (07:26→18:12)
[2017-07-06] MEDS: amLODIPine 5 MG TABLET PO SCH (09:07)
[2017-07-06] MEDS: Aspirin Enteric Coated 81 MG Tablet PO SCH (09:07)
[2017-07-06] MEDS: Docusate Oral Soln 100 MG/10 ML UDC PO SCH (09:07)
[2017-07-06] MEDS: Furosemide 20 MG TABLET PO SCH (09:07)
[2017-07-06] MEDS: Apixaban 5 MG TABLET PO SCH (09:08)
[2017-07-06] MEDS: Sennosides 8.6 MG TABLET PO SCH (09:08)
[2017-07-06] MEDS: *HR* Amiodarone 200 MG TABLET PO SCH (09:15)
[2017-07-06] MEDS: Metoprolol XL (24 HR) Succ 25 MG TAB.ER.24H PO SCH (09:15)
[2017-07-06] MEDS: Baclofen 10 MG TABLET PO PRN (11:48)
--- NOTE | 2017-07-06 14:13 | Discharge Summary ---
Date of Encounter: 07/06/17 Time of Encounter: 09:30 - Discharge Diagnosis (1) Acute respiratory failure Priority: Primary Status: Acute Qualifiers: Respiratory failure complication: hypoxia and hypercapnia Qualified Code(s) : J96.01 - Acute respiratory failure with hypoxia; J96.02 - Acute respiratory failure with hypercapnia; J96.02 - Acute respiratory failure with hypercapnia; J96.02 - Acute respiratory failure with hypercapnia (2) Pulmonary edema Priority: Primary Status: Resolved Qualifiers: Chronicity: acute Qualified Code(s): J81.0 - Acute pulmonary edema (3) Hyperglycemia Priority: Primary Status: Resolved (4) Pneumonia Priority: Primary Status: Suspected Qualifiers: Pneumonia type: due to unspecified organism Laterality: bilateral Lung location: unspecified part of lung Qualified Code(s): J18.9 - Pneumonia, unspecified organism (5) UTI (urinary tract infection) Priority: Primary Status: Acute Qualifiers: Urinary tract infection type: acute cystitis Hematuria presence: without hematuria Qualified Code(s): N30.00 - Acute cystitis without hematuria (6) Encephalopathy acute Priority: Primary Status: Resolved (7) Physical deconditioning Priority: Primary Status: Chronic (8) HTN (hypertension) Priority: Secondary Status: Chronic Qualifiers: Hypertension type: essential hypertension Qualified Code(s): I10 - Essential (primary) hypertension (9) CAD (coronary artery disease) Priority: Secondary Status: Chronic Qualifiers: Coronary Disease-Associated Artery/Lesion type: [place] artery [place] vs. transplanted heart: [place] heart Associated angina: without angina Qualified Code(s): I25.10 - Atherosclerotic heart disease of [place] coronary artery without angina pectoris (10) Hypokalemia Priority: Primary Status: Resolved (11) ARISTIDES (acute kidney injury) Priority: Primary Status: Resolved (12) COPD (chronic obstructive pulmonary disease) Priority: Secondary Status: Chronic Qualifiers: COPD type: unspecified COPD Qualified Code(s): J44.9 - Chronic obstructive pulmonary disease, unspecified (13) Atrial fibrillation with RVR Priority: Secondary Status: Chronic (14) Anemia Priority: Primary Status: Chronic Qualifiers: Anemia type: iron deficiency Iron deficiency anemia type: chronic blood loss Qualified Code(s): D50.0 - Iron deficiency anemia secondary to blood loss (chronic) - Discharge Medications Prescriptions: Amoxicillin/Clavulanate [Augmentin] 875 mg PO BIDWM #4 tablet HYDROcodone/Acet 5/325 mg [[place] 5-325 mg] 1 tab PO Q6H PRN #10 tab PRN Reason: Pain Home Medications: Duloxetine HCl [Cymbalta] 120 mg PO DAILY 05/10/17 [History] Metoprolol Succinate 25 mg PO DAILY 05/10/17 [History] Oxybutynin Chloride [Ditropan Xl] 10 mg PO DAILY 05/10/17 [History] Simvastatin [Zocor] 20 mg PO HS 05/10/17 [History] Aspirin Enteric Coated [Aspirin EC] 81 mg PO DAILY 06/27/17 [History] Amiodarone [Cordarone] 200 mg PO DAILY tablet 07/06/17 [Rx] Amoxicillin/Clavulanate [Augmentin] 875 mg PO BIDWM #4 tablet 07/06/17 [Rx] Apixaban [Eliquis] 5 mg PO BID tablet 07/06/17 [Rx] Baclofen [Lioresal] 10 mg PO TID PRN #10 07/06/17 [Rx] Furosemide [Lasix] 20 mg PO DAILY tablet 07/06/17 [Rx] HYDROcodone/Acet 5/325 mg [[place] 5-325 mg] 1 tab PO Q6H PRN #10 tab 07/06/17 [Rx ] Omeprazole [PriLOSEC] 40 mg PO BIDAC capsule. 07/06/17 [Rx] Potassium Chloride 10 meq PO DAILY tab.er.prt 07/06/17 [Rx] amLODIPine [Norvasc] 5 mg PO DAILY tablet 07/06/17 [Rx] Allergies/Adverse Reactions: 3 Allergy/AdvReac Type Severity Reaction Status Date / Time pregabalin [From Lyrica] Allergy Mild Confusion Verified 05/10/17 11:21 gabapentin Allergy Itching Verified 05/10/17 11:21 morphine AdvReac Unknown Agitated Verified 07/04/17 10:45 Date of admission: 06/27/17 18:05 Primary care physician: Titi Garcia, Consults: 06/27/17 20:12 Consult to Speech Therapy [CONS] Routine Comment: Evaluate, develop and implement POC Reason for Consult: Severe esophageal dysmotility Call Completed: No 06/29/17 08:19 Consult to Cardiology [CONS] Stat Comment: Consulting Provider: Cardiology Kira Reason for Consult: respiratory arrest, hx of bioprosthetic valve. Call Completed: Yes 06/29/17 09:15 Consult to Critical Care [CONS] Routine Consulting Provider: Pulm Crit Care & Sleep Kira Reason for Consult: Respiratory failure Call Completed: Yes 06/30/17 17:03 Consult to Speech Therapy [CONS] Routine Comment: Evaluate, develop and implement POC Reason for Consult: Reconsulting speech for new speech eval. Patient coded and required intubation since last eval. Patient now extubated. Would appreciate input. Understand that at this time speech is done for the day so will call tomorrow Call Completed: No 07/01/17 10:39 Consult to Invasive Line Access Team [CONS] Routine Reason for Consult: EPIV placement Line Type: EPIV 07/04/17 08:59 Consult to Occupational Therapy [CONS] Routine Comment: Evaluate, develop and implement POC Reason for Consult: Generalized weakness, delirium, deconditioning Consult to Physical Therapy [CONS] Routine Comment: Evaluate, develop and implement POC Reason for Consult: Generalized weakness, delirium, deconditioning 07/05/17 07:59 Consult to Liner Checker [CONS] Routine Reason for SW Consult: Deconditioned, delirious, safe discharge planning Discharging clinician: Sue Orozco Anticipated date of discharge: 07/06/17 - Patient Status Disposition: Transfer SNF Condition: Fair Functional capacity at discharge: uses cane/walker Overall status at discharge: patient is progressing back to baseline - Discharge Instructions Instructions: Hydrocodone/Acetaminophen (By mouth), Amoxicillin/Clavulanate Potassium (By mouth), Gastrointestinal Bleeding (DC), Urinary Tract Infection in Women (DC) Follow Up With: Titi Garcia DO [Primary Care Provider] - (working on SNF placement ) Additional Instructions: F/up with PCP in 1-2 weeks - Diet and Activity Activity: as per physical therapy, wear oxygen at all times Diet: low fat, low cholesterol, low salt diet Hospital course: Ms. Chilel is a 76 year old female with multiple medical problems, who was admitted with rectal bleeding. SHe recently had a colonoscopy which showed diverticulosis and polyps, no active bleeding. GI was consulted and EGD was done which showed nonbleeding gastric and duodenal ulcers and nonbleeding angioectasia of duodenum s/p APC. Of note, patient also had dysphagia and choking symptoms and had recent barium study, which showed esophageal dysmotility and recommended outpatient /up. While on the floor, she developed shortness of breath and respiratory distress, noted to have atrial fibrillation with RVR. She was taken down for stat CTA chest to r/o PE when she had cardiorespiratory arrest, underwent CPR and ET intubation and received mechanical ventilation, transferred to the ICU. She was suspected to have cardiogenic pulmonary edema and Pneumonia, possibly aspiration. SHe was started on IV lasix and broad spectrum IV antibiotics. Cardiology was consulted. Echocardiogram demonstrated an ejection fraction of 55 % with moderate concentric left ventricular hypertrophy. sHe was started on IV Amiodarone drip, later changed to pO Amiodarone. SHe was also started on anticoagulation with Eliquis. She was subsequently extubated and transferred to medical floor. SHe is hemodynamically stable but has significant weakness and deconditioning. PT/OT evaluation was completed and recommended ECF placement to which patient was agreeable. SHe is stable for this transfer. - Time Spent with Patient Total time spent providing and/or coordinating discharge services: Greater than 30 minutes (45 min) - Constitutional Vitals: Temp Pulse Resp BP Pulse Ox 98.2 F 62 16 108/66 96 07/06/17 11:59 07/06/17 11:59 07/06/17 11:59 07/06/17 11:59 07/06/17 11:59 General appearance: Present: A&O X 3 (appears much more alert and oriented today ), answers questions appropriately - Cardiovascular Cardiovascular exam: Present: irregular rhythm, +S1, +S2. Absent: diastolic murmur, gallop, rubs, systolic murmur - VTE Documentation of Mechanical Device: Intermittent pneumatic compression device
--- NOTE | 2017-07-06 14:20 | Physician Discharge Referral ---
ExtendedCare Referral Info Transfer To: [facility] Provider in Charge: Sue Orozco Provider in Charge after Transfer: PCP Institutional Level of Care: Skilled - Diagnosis (1) Acute respiratory failure Priority: Primary Status: Acute (2) Pulmonary edema Priority: Primary Status: Resolved (3) Hyperglycemia Priority: Primary Status: Resolved (4) Pneumonia Priority: Primary Status: Suspected (5) UTI (urinary tract infection) Priority: Primary Status: Acute (6) Encephalopathy acute Priority: Primary Status: Resolved (7) Physical deconditioning Priority: Primary Status: Chronic (8) HTN (hypertension) Priority: Secondary Status: Chronic (9) CAD (coronary artery disease) Priority: Secondary Status: Chronic (10) Hypokalemia Priority: Primary Status: Resolved (11) ARISTIDES (acute kidney injury) Priority: Primary Status: Resolved (12) COPD (chronic obstructive pulmonary disease) Priority: Secondary Status: Chronic (13) Atrial fibrillation with RVR Priority: Secondary Status: Chronic (14) Anemia Priority: Primary Status: Chronic Expected Duration of Placement: 3 weeks Prognosis: Fair Aware of Diagnosis: Patient Aware of Prognosis: Patient - Transfer Medications Prescriptions: Amoxicillin/Clavulanate [Augmentin] 875 mg PO BIDWM #4 tablet HYDROcodone/Acet 5/325 mg [[place] 5-325 mg] 1 tab PO Q6H PRN #10 tab PRN Reason: Pain Home Medications: Duloxetine HCl [Cymbalta] 120 mg PO DAILY 05/10/17 [History] Metoprolol Succinate 25 mg PO DAILY 05/10/17 [History] Oxybutynin Chloride [Ditropan Xl] 10 mg PO DAILY 05/10/17 [History] Simvastatin [Zocor] 20 mg PO HS 05/10/17 [History] Aspirin Enteric Coated [Aspirin EC] 81 mg PO DAILY 06/27/17 [History] Amiodarone [Cordarone] 200 mg PO DAILY tablet 07/06/17 [Rx] Amoxicillin/Clavulanate [Augmentin] 875 mg PO BIDWM #4 tablet 07/06/17 [Rx] Apixaban [Eliquis] 5 mg PO BID tablet 07/06/17 [Rx] Baclofen [Lioresal] 10 mg PO TID PRN #10 07/06/17 [Rx] Furosemide [Lasix] 20 mg PO DAILY tablet 07/06/17 [Rx] HYDROcodone/Acet 5/325 mg [[place] 5-325 mg] 1 tab PO Q6H PRN #10 tab 07/06/17 [Rx ] Omeprazole [PriLOSEC] 40 mg PO BIDAC capsule. 07/06/17 [Rx] Potassium Chloride 10 meq PO DAILY tab.er.prt 07/06/17 [Rx] amLODIPine [Norvasc] 5 mg PO DAILY tablet 07/06/17 [Rx] Allergies/Adverse Reactions: 3 Allergy/AdvReac Type Severity Reaction Status Date / Time pregabalin [From Lyrica] Allergy Mild Confusion Verified 05/10/17 11:21 gabapentin Allergy Itching Verified 05/10/17 11:21 morphine AdvReac Unknown Agitated Verified 07/04/17 10:45 - Respiratory Orders Oxygen / L per min (2L/min via [place]) Smoking Cessation: Smoking cessation has been advised. For more information, call the [employer] Tobacco Quit Line at 6-882-VNOL-NOW. - Advance Directives Code Status: Full Code - Mobility Orders Ambulate - Rehabiliation Orders Rehab Potential: Fair Rehab Orders: ROM Exercises, Evaluation for Physical Therapy, Evaluation for Occupational Therapy - Diet Orders No Added Salt (DARA), Cardiac CERTIFICATION: I certify that the transfer of the above named patient to an Extended Care Facility is necessary for the continuing treatment of the diagnosis listed. The above information is true and accurate reflection of patient's current condition. Confidential - Redisclosure prohibited without a patient's written consent.
[2017-07-06 18:33] VITALS: BP 108/57
== END 2017-07-06 19:00 | DRG 377 ==
LOC: EMEROO 15:04 → 3ANU 18:05 → SUATTDRO 18:05 → 3ANU 18:43 → ICNU 06-29 07:06 → 2ANU 07-03 14:49
PROVIDERS: ADMIT Hospitalist; ATTEND Internal Medicine

== ENCOUNTER 2017-09-10 15:39 | Inpatient (IN) ==
[2017-09-10] MEDS ORDERED: Naloxone 0.4 MG/ML INJ IVP PRN (20:11)
--- NOTE | 2017-09-10 20:27 | Internal Med History&Physical ---
Date of Encounter: 09/10/17 Time of Encounter: 20:24 Assessment and Plan (1) HCAP (healthcare-associated pneumonia) Current visit: Yes Status: Acute ASSESSMENT: Presents today with dyspnea and hypoxia from [place]. Per imaging and also the patient appears to have bilateral pneumonia. She has recently been admitted to the hospital and spent time in a short-term rehabilitation facility. She likely has HCAP. She is currently on 5 L via and hypoxia mask and resting comfortably in bed. Breath sounds included scattered rhonchi throughout as well as reveals bilateral posterior bases. He remains hemodynamically stable. Also, the patient's family is at bedside and voices some concern for possible aspiration. She will remain nothing by mouth for now, bedside swallow study per RN. If any suspicion for aspiration the patient will need a speech evaluation. - Blood Cx - Urine Legionella antigen, strep pneumo antigen, mycoplasma antigen - Antibiotics include vancomycin with pharmacy to dose and Zosyn - CBCD, CMP in AM - Tylenol 650 mg PO q 4-6 hr PRN pain or fever - Resume home medications - Sputum cultures - DuoNeb's every 4 hours scheduled, albuterol every 2 hours when necessary for breakthrough shortness of breath - Continuous respiratory support per nasal cannula; titrate to maintain SPO2 greater than 92% - Continuous telemetry and continuous SPO2 monitoring - Heparin 5000 U SQ BID (2) Acute respiratory failure with hypoxia Current visit: Yes Status: Acute Secondary to HCAP (3) Pulmonary edema Current visit: Yes Status: Acute Presents today with dyspnea and hypoxia. Chest x-ray reveals pneumonia as well as pulmonary vascular congestion Lasix 40 mg IV push twice a day Continue provide respiratory support as stated above Qualifiers: Chronicity: acute Qualified Code(s): J81.0 - Acute pulmonary edema (4) Anemia Current visit: Yes Status: Chronic Hx of AVM and GI bleed, but no active bleeding noted today. Also has a history of nutritional and iron deficiency anemia. She is supposed to have an appointment with hematology oncology to set her up for iron infusions. Hemoglobin is stable today at 9.8 CBC D in the morning Qualifiers: Anemia type: iron deficiency Iron deficiency anemia type: chronic blood loss Qualified Code(s): D50.0 - Iron deficiency anemia secondary to blood loss (chronic) (5) CAD (coronary artery disease) Current visit: Yes Status: Chronic Continue aspirin, statin, beta tiffanie Qualifiers: Coronary Disease-Associated Artery/Lesion type: [place] artery [place] vs. transplanted heart: [place] heart Associated angina: without angina Qualified Code(s): I25.10 - Atherosclerotic heart disease of [place] coronary artery without angina pectoris (6) COPD (chronic obstructive pulmonary disease) Current visit: Yes Status: Chronic Qualifiers: COPD type: unspecified COPD Qualified Code(s): J44.9 - Chronic obstructive pulmonary disease, unspecified (7) HTN (hypertension) Current visit: Yes Status: Chronic Stable, resume home anti-HTN meds Qualifiers: Hypertension type: essential hypertension Qualified Code(s): I10 - Essential (primary) hypertension (8) DVT prophylaxis Current visit: Yes Status: Acute Patient taking eliquis Internal Medicine - H&P: HPI Chief complaint: Dyspnea, hypoxia Admitted From: Home Plans for Post Hospital Care: Home History of present illness: Ms. Chilel is a 77 year old female hx of HTN, s/p bio aortic valve replacement , CAD s/p stent, Hx of AVM and GI bleed. She presents to [facility] today from [facility] with a multi week history of dry nonproductive cough. Also, she reports she has had shortness of breath which began last night. Family is at bedside reports that the patient was hypoxic upon arrival to the outlying hospital and had a decreased LOC. Per [facility] imaging the patient was found to have B/L PNA. She has had a hospital admission in the last 90 days and also been any short-term rehabilitation. She is at high risk HCAP. She admits to dry cough, fever, chills and shortness of breath. Denies chest pain, abdominal pain, nausea, vomiting, diarrhea, unilateral extremity swelling or pain. Past Med Surg Social Fam HX - Past Medical History Medical history: atrial fibrillation, cirrhosis, CHF, COPD, coronary artery disease, fibromyalgia, GERD, hyperlipidemia, hypertension, osteoporosis Psychiatric history: anxiety, depression - Past Surgical History Surgical History: heart valve replacement, hysterectomy, orthopedic, other - Social History Smoking Status: Former smoker Alcohol use: none Drug use: none - Family History Mother Living Status: Father Living Status: Internal Medicine - H&P: Meds Duloxetine HCl [Cymbalta] 120 mg PO DAILY 05/10/17 [History] Oxybutynin Chloride [Ditropan Xl] 10 mg PO DAILY 05/10/17 [History] Simvastatin [Zocor] 20 mg PO HS 05/10/17 [History] Aspirin Enteric Coated [Aspirin EC] 81 mg PO DAILY 06/27/17 [History] Amiodarone [Cordarone] 200 mg PO DAILY tablet 07/06/17 [Rx] Amoxicillin/Clavulanate [Augmentin] 875 mg PO BIDWM #4 tablet 07/06/17 [Rx] Baclofen [Lioresal] 10 mg PO TID PRN #10 07/06/17 [Rx] Furosemide [Lasix] 20 mg PO DAILY tablet 07/06/17 [Rx] HYDROcodone/Acet 5/325 mg [[place] 5-325 mg] 1 tab PO Q6H PRN #10 tab 07/06/17 [Rx ] Omeprazole [PriLOSEC] 40 mg PO BIDAC capsule. 07/06/17 [Rx] Potassium Chloride 10 meq PO DAILY tab.er.prt 07/06/17 [Rx] amLODIPine [Norvasc] 5 mg PO DAILY tablet 07/06/17 [Rx] 3 Allergy/AdvReac Type Severity Reaction Status Date / Time pregabalin [From Lyrica] Allergy Mild Confusion Verified 05/10/17 11:21 gabapentin Allergy Itching Verified 05/10/17 11:21 morphine AdvReac Unknown Agitated Verified 07/04/17 10:45 All Systems PM: A 10-system review of systems was performed and is negative for pertinent findings except as documented above in the HPI. Review of systems: REVIEW OF SYSTEMS GENERAL: Negative for any nausea, vomiting, or weight loss. Positive for fever and chills NEUROLOGIC: Negative for any blurry vision, blind spots, double vision, facial asymmetry, dysphagia, dysarthria, hemiparesis, hemisensory deficits, vertigo, ataxia. HEENT: Negative for any head trauma, neck trauma, neck stiffness, photophobia, phonophobia, sinusitis, rhinitis. CARDIAC: Negative for any chest pain, paroxysmal nocturnal dyspnea, peripheral edema. PULMONARY: Negative for any wheezing, COPD, or TB exposure. Positive for dry nonproductive cough and dyspnea GASTROINTESTINAL: Negative for any abdominal pain, nausea, vomiting, bright red blood per rectum, melena. GENITOURINARY: Negative for any dysuria, hematuria, incontinence. INTEGUMENTARY: Negative for any rashes, cuts, insect bites. RHEUMATOLOGIC: Negative for any joint pains, photosensitive rashes, history of vasculitis or kidney problems. HEMATOLOGIC: Negative for any abnormal bruising, frequent infections or bleeding. - Constitutional Vitals: Temp Pulse Resp BP Pulse Ox 98.6 F 81 19 131/73 90 09/10/17 18:30 09/10/17 18:30 09/10/17 18:30 09/10/17 18:30 09/10/17 18:30 General appearance: Present: cooperative, A&O X 3, no acute distress, answers questions appropriately Exam: PHYSICAL EXAMINATION: GENERAL: The patient is an ill-appearing female with mild respiratory distress. She is alert and oriented x3. HEENT: Head is normocephalic and atraumatic. Extraocular muscles are intact. Pupils are equal, round, and reactive to light and accommodation. NECK: Supple. No carotid bruits. No lymphadenopathy or thyromegaly. LUNGS: Lungs are diminished bilaterally with scattered rhonchi and rales at the bilateral posterior bases HEART: Regular rate and rhythm without murmur. ABDOMEN: Soft, nontender, and nondistended. Positive bowel sounds. No hepatosplenomegaly was noted. EXTREMITIES: Without any cyanosis, clubbing, rash, lesions or edema. NEUROLOGIC: Cranial nerves II through XII are grossly intact. SKIN: No ulceration, rashes or skin lesions present Internal Med - H&P Results - Labs CBC & Chem 7: 09/10/17 21:07 09/10/17 21:07 - EKG Data -: EKG Interpreted by Myself EKG shows normal: sinus rhythm
[2017-09-10] MEDS ORDERED: Albuterol 2.5 MG/3 ML NEBULIZER IH PRN (20:55)
[2017-09-10] MEDS ORDERED: Acetaminophen 325 MG TABLET PO PRN (20:57)
[2017-09-10] MEDS: Ipratropium/Albuterol Neb 3 ML IH SCH (21:16)
[2017-09-10 21:23] LABS: Hematocrit 28.3 % (35.3-44.9); Hemoglobin 8.6 g/dL (11.5-15.4); Immature Granulocytes % 0.9 % (0-4); Lymphocytes # 0.5 K/mcL (0.6-4.6); Lymphocytes % 7.1 %; Mean Corpuscular HGB Conc 30.4 g/dL (31.6-35.5); Mean Platelet Volume 11.1 fL (9.4-12.4); Monocytes # 0.2 K/mcL (0.0-1.3); Monocytes % 2.8 %; Neutrophils # 6.2 K/mcL (1.6-8.9); Platelet Count 133 K/mcL (140-400); Red Blood Count 3.18 M/mcL (3.82-4.97); Red Cell Distribution Width 15.9 % (11.5-14.5); Segmented Neutrophils % 89.2 %
[2017-09-10 21:47] LABS: Alanine Aminotransferase 10 Units/L (7-52); Albumin 3.8 g/dL (3.5-5.7); Albumin/Globulin Ratio 1.4 (1.1-2.2); Alkaline Phosphatase 52 Units/L (34-104); Aspartate Amino Transferase 22 Units/L (13-39); BUN/Creatinine Ratio 17 (6-26); Bilirubin,Total 0.8 mg/dL (0.3-1.0); Blood Urea Nitrogen 16 mg/dL (8-23); Calcium 8.9 mg/dL (8.6-10.3); Carbon Dioxide 27 mEq/L (23-29); Chloride 102 mEq/L (98-107); Globulin 2.8 g/dL (2.4-3.5); Glucose 159 mg/dL (70-105); Osmolality,Calculated 293 (280-300); Potassium 3.4 mEq/L (3.5-5.1); Sodium 139 mEq/L (136-145); Total Protein 6.6 g/dL (6.4-8.9); eGFR For African Americans > 60 (> 60); eGFR For Non-African Americans 56 (> 60)
[2017-09-10] MEDS ORDERED: *HR* Heparin 5,000 UNIT/ML VIAL IVP PRN ×2 (22:24)
[2017-09-10] MEDS ORDERED: *HR* LORazepam 2 MG/ML VIAL IVP ONE (23:01)
[2017-09-10] MEDS: Heparin 25,000 UNIT/500 ML D5W 25,000 UNIT/500 ML BAG IVC SCH (23:36)
[2017-09-10] MEDS: *HR* HYDROcodone/Acet 5/325 mg TABLET PO PRN (23:38)
[2017-09-10] MEDS: Baclofen 10 MG TABLET PO PRN (23:39)
[2017-09-10 23:48] LABS: Hematocrit 28.6 % (35.3-44.9); Hemoglobin 8.7 g/dL (11.5-15.4); Mean Corpuscular HGB Conc 30.4 g/dL (31.6-35.5); Mean Corpuscular Hemoglobin 26.9 pg (28.0-33.3); Mean Corpuscular Volume 88.3 fL (83.0-100.0); Mean Platelet Volume 10.8 fL (9.4-12.4); Platelet Count 151 K/mcL (140-400); Red Blood Count 3.24 M/mcL (3.82-4.97); Red Cell Distribution Width 15.9 % (11.5-14.5)
[2017-09-10 23:55] LABS: INR 1.3
[2017-09-10 23:58] LABS: Activated Partial Thrombo Time 34.1 Seconds (26.0-36.0)
[2017-09-11 00:01] LABS: ABG Base Excess 5 mEq/L (-2 to 3); ABG HCO3 29 mEq/L (21-27); ABG Oxygen Saturation 90 % (95-98); ABG PCO2 40 mmHg (35-45); ABG PH 7.47 pH Units (7.32-7.45); ABG PO2 54 mmHg (85-104); ABG TCO2 30 mEq/L (20-26)
[2017-09-11] MEDS: Furosemide 40 MG/4 ML VIAL IVP SCH ×3 (00:04→15:40)
[2017-09-11] MEDS: Piperacillin/Tazobactam 3.375 GM in 0.9 % Sodium Chloride Mini Bag 100 ML IVPB SCH ×3 (00:05→15:40)
[2017-09-11] MEDS: Ipratropium/Albuterol Neb 3 ML IH SCH ×6 (00:08→20:46)
[2017-09-11] MEDS ORDERED: *HR* Heparin 5,000 UNIT/ML VIAL SQ SCH (06:00)
[2017-09-11] MEDS: *HR* HYDROcodone/Acet 5/325 mg TABLET PO PRN ×2 (06:21→20:26)
[2017-09-11] MEDS: Baclofen 10 MG TABLET PO PRN ×2 (06:21→20:26)
[2017-09-11] MEDS: *HR* Amiodarone 200 MG TABLET PO SCH (08:41)
[2017-09-11] MEDS: Aspirin Enteric Coated 81 MG Tablet PO SCH (08:41)
[2017-09-11] MEDS: amLODIPine 5 MG TABLET PO SCH (08:41)
[2017-09-11] MEDS ORDERED: Vancomycin 1 EACH in 0.9 % Sodium Chloride 250 ML IVPB SCH (09:00)
[2017-09-11] MEDS ORDERED: Furosemide 20 MG TABLET PO SCH (09:00)
--- NOTE | 2017-09-11 09:31 | Internal Med Progress Note ---
<William Gandhi - Last Filed: 09/11/17 15:55> Date of Encounter: 09/11/17 Time of Encounter: 09:30 - Assessment and plan (1) Pulmonary edema Current Visit: Yes Status: Acute Assessment and plan: Restricting unnecessary volume administration this time. CT of chest and abdomen and pelvis that was obtained reveals bilateral pulmonary edema with patchy opacities consistent with atypical infection. There are also small bilateral pleural effusions as well. The gallbladder has a layering density that is consistent with excreted contrast are milk of calcium bile. Patient has been diuresing well per nurse. Output is not accurate as patient has been urinating on bed. Patient is currently receiving 40 mg of Lasix twice daily. We will continue this. -Monitor for adequate output -Restrict intake of fluids -Continue diuresis with 40 mg Lasix twice daily - Qualifiers: Chronicity: acute Qualified Code(s): J81.0 - Acute pulmonary edema (2) HCAP (healthcare-associated pneumonia) Current Visit: Yes Status: Acute Assessment and plan: Currently on vancomycin and Zosyn day 2. Urine Legionella, urine strep, respiratory infection panel have been ordered. Patient is currently flu negative. (3) Acute respiratory failure with hypoxia Current Visit: Yes Status: Acute Assessment and plan: Oxygen saturation is currently 97% on 2 L of oxygen via nasal cannula. Continue to monitor. Primary cause is pulmonary edema as well as HCAP. (4) Anemia Current Visit: Yes Status: Chronic Assessment and plan: Hemoglobin is currently 8.7. Patient has known AVMs and follows Dr. Zimmerman with gastroenterology. Continue to monitor hemoglobin and hematocrit. Patient is not complaining of any bleeding at this time. Qualifiers: Anemia type: iron deficiency Iron deficiency anemia type: chronic blood loss Qualified Code(s): D50.0 - Iron deficiency anemia secondary to blood loss (chronic) (5) Abdominal pain Current Visit: Yes Status: Acute Assessment and plan: Patient complaining of new abdominal pain that was localized in the right upper quadrant. Modi sign was negative. Patient is not tachycardic, not hypotensive. CT scan of the abdomen and pelvis was obtained and did not reveal an acute process in the abdomen. We will continue to monitor with serial abdominal exams. Patient is nontoxic-appearing at this time. Chest X-Ray 09/10/17 20:01 IMPRESSION: Patchy airspace disease, increased. Worsening pneumonia versus edema. D/ / Lis Frankel MD / Lis Frankel MD Interpreting Provider: Lis Frankel MD Abdomen/Pelvis CT 09/11/17 09:23 IMPRESSION: 1. Bilateral perihilar and suprahilar airspace opacities, with an appearance most suggestive of pulmonary edema. Multifocal or atypical infection could have a similar appearance. 2. Small bilateral pleural effusions are present with compressive atelectasis of the lung bases. A small amount of consolidation cannot be entirely excluded. 3. No acute process in the abdomen. 4. Cirrhotic appearance of the liver, with borderline splenomegaly. 5. Right adrenal adenoma. 6. Layering density in the gallbladder, which could represent excreted contrast or milk of calcium bile. D/ / 09/11/2017 14:19:28 Dedrick Wright MD / onel Interpreting Provider: Dedrick Wright MD Chest CT 09/11/17 09:23 IMPRESSION: 1. Bilateral perihilar and suprahilar airspace opacities, with an appearance most suggestive of pulmonary edema. Multifocal or atypical infection could have a similar appearance. 2. Small bilateral pleural effusions are present with compressive atelectasis of the lung bases. A small amount of consolidation cannot be entirely excluded. 3. No acute process in the abdomen. 4. Cirrhotic appearance of the liver, with borderline splenomegaly. 5. Right adrenal adenoma. 6. Layering density in the gallbladder, which could represent excreted contrast or milk of calcium bile. D/ / 09/11/2017 14:19:28 Dedrick Wright MD / onel Interpreting Provider: Dedrick Wright MD Qualifiers: Abdominal location: right upper quadrant Qualified Code(s): R10.11 - Right upper quadrant pain (6) Elevated troponin Current Visit: Yes Status: Acute Assessment and plan: Troponins here have been elevated at 0.27, 0.26, 0.21 respectively. They appear to be trending downward. Patient's troponins were much higher throughout her stay in June. Suspect that elevated troponin is due to demand ischemia secondary to hypoxia, fluid overload as well as her pneumonia. (7) DVT prophylaxis Current Visit: No Status: Acute - Subjective Interval history: 77-year-old female who lives in an extended care facility with pneumonia in June that was treated with Augmentin was transferred here from [facility] due to patient being hypoxic and having dyspnea. Chest x-ray reveals bilateral opacities that of worsening with pulmonary edema. Patient was on BiPAP for a short amount of time. She is currently on nasal cannula with saturation of 97% on 2 L. Patient still complaining of some shortness of breath. Patient states that she is concerned that she is having difficulty swallowing. Patient reports that she has had extensive of that evaluation of the swallowing issue. Patient denies having any cough or increased sputum production. She just states that she was simply short of breath and this has improved after being provided with Lasix. - Constitutional Vitals: Temp Pulse Resp BP Pulse Ox 98.3 F 85 23 115/64 97 09/11/17 07:11 09/11/17 07:11 09/11/17 07:51 09/11/17 07:11 09/11/17 08:57 General appearance: Present: cooperative, A&O X 3, no acute distress, answers questions appropriately - Head Head exam: Present: atraumatic, normal inspection - ENT ENT exam: Present: mucous membranes moist - Neck Neck exam general surgery: Present: supple, trachea midline - Respiratory Respiratory exam: Present: rales (Mild), rhonchi (Mild) - Cardiovascular Cardiovascular exam: Present: RRR. Absent: clicks, gallop - GI/Abdominal GI/Abdominal exam: Present: soft, tenderness (To the right upper quadrant but negative Modi sign). Absent: rebound - Extremities Exam Extremities exam: Present: pedal edema (1+) Internal Medicine: Result - Labs CBC & Chem 7: 09/11/17 09:16 09/11/17 09:16 Labs: Short CBC 09/10/17 09/10/17 Range/Units 21:07 23:30 WBC 6.9 8.6 (4.3-11.1) K/mcL Hgb 8.6 L 8.7 L (11.5-15.4) g/dL Hct 28.3 L 28.6 L (35.3-44.9) % Plt Count 133 L 151 (140-400) K/mcL Neutrophils # 6.2 (1.6-8.9) K/mcL BMP 09/10/17 21:07 Sodium 139 Potassium 3.4 L Chloride 102 Carbon Dioxide 27 BUN 16 Creatinine 0.96 Glucose 159 H Calcium 8.9 Cardiac Enzymes 09/10/17 09/11/17 Range/Units 21:07 03:02 Troponin I 0.27 H* 0.26 H* (< 0.04) ng/mL Liver Function 09/10/17 Range/Units 21:07 Total Bilirubin 0.8 (0.3-1.0) mg/dL AST 22 (13-39) Units/L ALT 10 (7-52) Units/L Alkaline Phosphatase 52 (34-104) Units/L Albumin 3.8 (3.5-5.7) g/dL - ABG Interpretation ABG results: ABG ABG pH 7.47 pH Units (7.32-7.45) H 09/10/17 23:56 ABG pCO2 40 mmHg (35-45) 09/10/17 23:56 ABG pO2 54 mmHg (85-104) L 09/10/17 23:56 ABG O2 Saturation 90 % (95-98) L 09/10/17 23:56 PT/INR, D-dimer PT 14.0 Seconds (9.4-12.1) H 09/10/17 23:30 - Impressions Impressions Chest X-Ray 09/10/17 20:01 IMPRESSION: Patchy airspace disease, increased. Worsening pneumonia versus edema. D/ / Lis Frankel MD / Lis Frankel MD Interpreting Provider: Lis Frankel MD Consult Discharge Plan - Plan Referrals: Titi Garcia DO [Primary Care Provider] - <Montez Vides - Last Filed: 09/11/17 18:26> Date of Encounter: 09/11/17 - Assessment and plan (1) Acute respiratory failure with hypoxia Current Visit: Yes Status: Acute (2) Pulmonary edema Current Visit: Yes Status: Acute Qualifiers: Chronicity: acute Qualified Code(s): J81.0 - Acute pulmonary edema (3) Pneumonia Current Visit: Yes Status: Acute Qualifiers: Pneumonia type: due to other aerobic Gram-negative bacteria Laterality: bilateral Lung location: lower lobe of lung Qualified Code(s): J15.6 - Pneumonia due to other Gram-negative bacteria (4) Hypokalemia Current Visit: No Status: Acute (5) Anemia Current Visit: Yes Status: Chronic Qualifiers: Anemia type: iron deficiency Iron deficiency anemia type: chronic blood loss Qualified Code(s): D50.0 - Iron deficiency anemia secondary to blood loss (chronic) (6) CAD (coronary artery disease) Current Visit: Yes Status: Chronic Qualifiers: Coronary Disease-Associated Artery/Lesion type: [place] artery [place] vs. transplanted heart: [place] heart Associated angina: without angina Qualified Code(s): I25.10 - Atherosclerotic heart disease of [place] coronary artery without angina pectoris (7) CKD (chronic kidney disease) Current Visit: Yes Status: Chronic Qualifiers: Chronic kidney disease stage: stage 3 (moderate) Qualified Code(s): N18.3 - Chronic kidney disease, stage 3 (moderate) (8) COPD (chronic obstructive pulmonary disease) Current Visit: Yes Status: Chronic Qualifiers: COPD type: unspecified COPD Qualified Code(s): J44.9 - Chronic obstructive pulmonary disease, unspecified (9) HTN (hypertension) Current Visit: Yes Status: Chronic Qualifiers: Hypertension type: essential hypertension Qualified Code(s): I10 - Essential (primary) hypertension - Constitutional Vitals: Temp Pulse Resp BP Pulse Ox 98.0 F 88 18 123/51 100 09/11/17 15:26 09/11/17 15:26 09/11/17 16:15 09/11/17 15:26 09/11/17 16:15 Internal Medicine: Result - Labs CBC & Chem 7: 09/11/17 09:16 09/11/17 09:16 Labs: Short CBC 09/10/17 09/10/17 09/11/17 Range/Units 21:07 23:30 09:16 WBC 6.9 8.6 9.6 (4.3-11.1) K/mcL Hgb 8.6 L 8.7 L 8.7 L (11.5-15.4) g/dL Hct 28.3 L 28.6 L 28.9 L (35.3-44.9) % Plt Count 133 L 151 156 (140-400) K/mcL Neutrophils # 6.2 8.0 (1.6-8.9) K/mcL BMP 09/10/17 09/11/17 21:07 09:16 Sodium 139 141 Potassium 3.4 L 2.9 L Chloride 102 101 Carbon Dioxide 27 31 H BUN 16 18 Creatinine 0.96 1.04 Glucose 159 H 136 H Calcium 8.9 8.9 Cardiac Enzymes 09/10/17 09/11/17 09/11/17 Range/Units 21:07 03:02 09:16 Troponin I 0.27 H* 0.26 H* 0.21 H* (< 0.04) ng/mL Liver Function 09/10/17 09/11/17 Range/Units 21:07 09:16 Total Bilirubin 0.8 0.8 (0.3-1.0) mg/dL AST 22 20 (13-39) Units/L ALT 10 11 (7-52) Units/L Alkaline Phosphatase 52 51 (34-104) Units/L Albumin 3.8 3.5 (3.5-5.7) g/dL Urine 09/11/17 Range/Units 17:07 Urine Color Yellow (Yellow) Urine Clarity Clear (Clear) Urine pH 6.5 (5.0-8.0) pH Units Ur Specific [place] 1.021 (1.010-1.025) Urine Protein Negative (Neg-Trace) mg/dL Urine Glucose (UA) Normal (Normal) mg/dL - ABG Interpretation ABG results: ABG ABG pH 7.47 pH Units (7.32-7.45) H 09/10/17 23:56 ABG pCO2 40 mmHg (35-45) 09/10/17 23:56 ABG pO2 54 mmHg (85-104) L 09/10/17 23:56 ABG O2 Saturation 90 % (95-98) L 09/10/17 23:56 PT/INR, D-dimer PT 14.0 Seconds (9.4-12.1) H 09/10/17 23:30 - Impressions Impressions Chest X-Ray 09/10/17 20:01 IMPRESSION: Patchy airspace disease, increased. Worsening pneumonia versus edema. D/ / Lis Frankel MD / Lis Frankel MD Interpreting Provider: Lis Frankel MD Abdomen/Pelvis CT 09/11/17 09:23 IMPRESSION: 1. Bilateral perihilar and suprahilar airspace opacities, with an appearance most suggestive of pulmonary edema. Multifocal or atypical infection could have a similar appearance. 2. Small bilateral pleural effusions are present with compressive atelectasis of the lung bases. A small amount of consolidation cannot be entirely excluded. 3. No acute process in the abdomen. 4. Cirrhotic appearance of the liver, with borderline splenomegaly. 5. Right adrenal adenoma. 6. Layering density in the gallbladder, which could represent excreted contrast or milk of calcium bile. D/ / 09/11/2017 14:19:28 Dedrick Wright MD / onel Interpreting Provider: Dedrick Wright MD Chest CT 09/11/17 09:23 IMPRESSION: 1. Bilateral perihilar and suprahilar airspace opacities, with an appearance most suggestive of pulmonary edema. Multifocal or atypical infection could have a similar appearance. 2. Small bilateral pleural effusions are present with compressive atelectasis of the lung bases. A small amount of consolidation cannot be entirely excluded. 3. No acute process in the abdomen. 4. Cirrhotic appearance of the liver, with borderline splenomegaly. 5. Right adrenal adenoma. 6. Layering density in the gallbladder, which could represent excreted contrast or milk of calcium bile. D/ / 09/11/2017 14:19:28 Dedrick Wright MD / onel Interpreting Provider: Dedrick Wright MD - Attending Attestation I examined this patient and my medical decision-making was reviewed with the Resident Physician on 09/11/17. I agree with the documented findings, disposition and treatment plan as described except to the extent set forth below. Ms Chilel is currently admitted for acute resp distress related to pulmonary edema and probable pneumonia. She remains moderate to high risk due to potential for worsening clinical and respiratory status. Ms Chilel just got back to bed. She is quite dyspneic and fatigued. She continues to have myoclonic jerks. No fever or chills at this time. No CP. Exam alert Mild distress Mucus membranes dry Myoclonic jerks noted Heart reg with murmur Lungs with few rales bilaterally Edema present I/P 1. Resp failure 2. Pulmonary edema Further diagnoses and plan as above.
[2017-09-11 09:40] LABS: Hematocrit 28.9 % (35.3-44.9); Hemoglobin 8.7 g/dL (11.5-15.4); Immature Granulocytes % 0.6 % (0-4); Lymphocytes # 0.7 K/mcL (0.6-4.6); Lymphocytes % 7.4 %; Mean Corpuscular HGB Conc 30.1 g/dL (31.6-35.5); Mean Corpuscular Hemoglobin 27.1 pg (28.0-33.3); Mean Platelet Volume 10.8 fL (9.4-12.4); Monocytes # 0.9 K/mcL (0.0-1.3); Monocytes % 9.2 %; Platelet Count 156 K/mcL (140-400); Red Blood Count 3.21 M/mcL (3.82-4.97); Red Cell Distribution Width 16.3 % (11.5-14.5); Segmented Neutrophils % 82.8 %
[2017-09-11 09:57] LABS: Alanine Aminotransferase 11 Units/L (7-52); Albumin 3.5 g/dL (3.5-5.7); Albumin/Globulin Ratio 1.1 (1.1-2.2); Alkaline Phosphatase 51 Units/L (34-104); Aspartate Amino Transferase 20 Units/L (13-39); BUN/Creatinine Ratio 17 (6-26); Bilirubin,Total 0.8 mg/dL (0.3-1.0); Blood Urea Nitrogen 18 mg/dL (8-23); Calcium 8.9 mg/dL (8.6-10.3); Carbon Dioxide 31 mEq/L (23-29); Chloride 101 mEq/L (98-107); Globulin 3.2 g/dL (2.4-3.5); Glucose 136 mg/dL (70-105); Osmolality,Calculated 296 (280-300); Potassium 2.9 mEq/L (3.5-5.1); Sodium 141 mEq/L (136-145); Total Protein 6.7 g/dL (6.4-8.9); eGFR For African Americans > 60 (> 60); eGFR For Non-African Americans 51 (> 60)
[2017-09-11 17:29] LABS: Bilirubin,Urine Negative (Negative); Blood,Urine Negative (Negative); Clarity,Urine Clear (Clear); Color,Urine Yellow (Yellow); Glucose,Urine (UA) Normal (Normal); Ketones,Urine Negative (Negative); Leukocyte Esterase,Urine Negative (Negative); Nitrite,Urine Negative (Negative); PH,Urine 6.5 pH Units (5.0-8.0); Protein,Urine Negative (Neg-Trace); Specific Gravity,Urine 1.021 (1.010-1.025); Urobilinogen,Urine Normal (Normal)
[2017-09-12] MEDS: Ipratropium/Albuterol Neb 3 ML IH SCH ×6 (00:15→20:02)
[2017-09-12] MEDS: Piperacillin/Tazobactam 3.375 GM in 0.9 % Sodium Chloride Mini Bag 100 ML IVPB SCH ×3 (00:57→16:58)
[2017-09-12] MEDS: Heparin 25,000 UNIT/500 ML D5W 25,000 UNIT/500 ML BAG IVC SCH (00:58)
[2017-09-12 05:41] LABS: Basophils % 0.4 %; Eosinophils % 0.6 %; Hematocrit 26.8 % (35.3-44.9); Immature Granulocytes % 0.4 % (0-4); Lymphocytes # 0.8 K/mcL (0.6-4.6); Lymphocytes % 16.1 %; Mean Corpuscular HGB Conc 29.9 g/dL (31.6-35.5); Mean Corpuscular Hemoglobin 27.1 pg (28.0-33.3); Mean Corpuscular Volume 90.8 fL (83.0-100.0); Mean Platelet Volume 10.8 fL (9.4-12.4); Monocytes # 0.4 K/mcL (0.0-1.3); Monocytes % 8.4 %; Neutrophils # 3.8 K/mcL (1.6-8.9); Platelet Count 121 K/mcL (140-400); Red Blood Count 2.95 M/mcL (3.82-4.97); Red Cell Distribution Width 16.2 % (11.5-14.5); Segmented Neutrophils % 74.1 %
[2017-09-12 06:26] LABS: Albumin 3.4 g/dL (3.5-5.7); Albumin/Globulin Ratio 1.2 (1.1-2.2); Bilirubin,Total 0.7 mg/dL (0.3-1.0); Calcium 8.6 mg/dL (8.6-10.3); Globulin 2.8 g/dL (2.4-3.5); Magnesium 2.1 mg/dL (1.6-2.6); Phosphorous 3.2 mg/dL (2.7-4.5); Potassium 2.8 mEq/L (3.5-5.1); Total Protein 6.2 g/dL (6.4-8.9)
[2017-09-12] MEDS: Aspirin Enteric Coated 81 MG Tablet PO SCH (08:18)
[2017-09-12] MEDS: *HR* Amiodarone 200 MG TABLET PO SCH (08:18)
[2017-09-12] MEDS: amLODIPine 5 MG TABLET PO SCH (08:18)
[2017-09-12] MEDS: Furosemide 40 MG/4 ML VIAL IVP SCH ×2 (08:19→16:58)
[2017-09-12] MEDS ORDERED: Aminoglycoside Consult 1 EACH MC ONE (08:28)
--- NOTE | 2017-09-12 11:13 | Internal Med Progress Note ---
<William Gandhi - Last Filed: 09/12/17 11:11> Date of Encounter: 09/12/17 Time of Encounter: 11:11 - Assessment and plan (1) Pulmonary edema Current Visit: Yes Status: Acute Assessment and plan: Patient improving clinically. Decreased rales. Patient currently asymptomatic and not endorsing any shortness of breath. On oxygen via nasal cannula. Patient states she has been diuresing well. We will continue 40 of Lasix twice daily through today. We will consider decreasing the dose tomorrow. We are waiting results from an echocardiogram. Patient has a porcine valve. There is some concern that her shortness of breath is related to deterioration of the valve. We will await results of the echocardiogram. Qualifiers: Chronicity: acute Qualified Code(s): J81.0 - Acute pulmonary edema (2) HCAP (healthcare-associated pneumonia) Current Visit: Yes Status: Acute Assessment and plan: Patient has mild evidence of pneumonia on CT of chest. Patient is currently on Zosyn day 2. Legionella and strep are negative. Flu negative as well (3) Acute respiratory failure with hypoxia Current Visit: Yes Status: Acute Assessment and plan: Improved see above (4) Anemia Current Visit: Yes Status: Chronic Assessment and plan: Hemoglobin currently 0.0. Was a 0.7 yesterday. We will continue to monitor. Patient not complaining of any hemoptysis, hematemesis, hematuria, hematochezia , melena. Qualifiers: Anemia type: iron deficiency Iron deficiency anemia type: chronic blood loss Qualified Code(s): D50.0 - Iron deficiency anemia secondary to blood loss (chronic) (5) Abdominal pain Current Visit: Yes Status: Acute Assessment and plan: Patient had CT of the abdomen and pelvis that did not reveal any acute intra- abdominal abnormality. Patient still endorsing mild abdominal pain. Abdomen soft, nontender, no peritoneal signs at this time. Patient not tachycardic and not hypotensive. Lipase was normal, hepatic transaminases were normal as well. Consider giving Bentyl or laxitive. Qualifiers: Abdominal location: right upper quadrant Qualified Code(s): R10.11 - Right upper quadrant pain (6) Elevated troponin Current Visit: Yes Status: Acute (7) DVT prophylaxis Current Visit: No Status: Acute Assessment and plan: On heparin - Subjective Interval history: 77-year-old female who lives in an extended care facility with pneumonia in June that was treated with Augmentin was transferred here from [facility] due to patient being hypoxic and having dyspnea. Chest x-ray reveals bilateral opacities that of worsening with pulmonary edema. Patient was on BiPAP for a short amount of time. She is now currently off nasal cannula. Patient denies any shortness of breath. Patient denies having any cough or increased sputum production. Patient states that she is urinating well after administration of Lasix. - Constitutional Vitals: Temp Pulse Resp BP Pulse Ox 98.2 F 91 20 151/65 98 09/12/17 07:56 09/12/17 07:56 09/12/17 07:56 09/12/17 07:56 09/12/17 07:56 General appearance: Present: cooperative, A&O X 3, no acute distress, answers questions appropriately - Head Head exam: Present: atraumatic, normal inspection - Neck Neck exam general surgery: Present: full ROM, supple, trachea midline - Respiratory Respiratory exam: Absent: respiratory distress Additional comments: Diffuse rales, however, improved from yesterday. Currently off nasal cannula. Not in any acute respiratory distress. - Cardiovascular Cardiovascular exam: Present: systolic murmur Additional comments: 3/5 systolic murmur at the RUSB. - GI/Abdominal GI/Abdominal exam: Present: soft. Absent: firm, guarding, rebound, tenderness - Extremities Exam Extremities exam: Present: pedal edema (1+) Internal Medicine: Result - Labs CBC & Chem 7: 09/12/17 05:02 09/12/17 05:02 Labs: Short CBC 09/12/17 Range/Units 05:02 WBC 5.1 (4.3-11.1) K/mcL Hgb 8.0 L (11.5-15.4) g/dL Hct 26.8 L (35.3-44.9) % Plt Count 121 L (140-400) K/mcL Neutrophils # 3.8 (1.6-8.9) K/mcL BMP 09/12/17 05:02 Sodium 142 Potassium 2.8 L Chloride 104 Carbon Dioxide 28 BUN 18 Creatinine 1.20 Glucose 123 H Calcium 8.6 Liver Function 09/12/17 Range/Units 05:02 Total Bilirubin 0.7 (0.3-1.0) mg/dL AST 17 (13-39) Units/L ALT 10 (7-52) Units/L Alkaline Phosphatase 45 (34-104) Units/L Albumin 3.4 L (3.5-5.7) g/dL Urine 09/11/17 Range/Units 17:07 Urine Color Yellow (Yellow) Urine Clarity Clear (Clear) Urine pH 6.5 (5.0-8.0) pH Units Ur Specific [place] 1.021 (1.010-1.025) Urine Protein Negative (Neg-Trace) mg/dL Urine Glucose (UA) Normal (Normal) mg/dL - ABG Interpretation ABG results: ABG ABG pH 7.47 pH Units (7.32-7.45) H 09/10/17 23:56 ABG pCO2 40 mmHg (35-45) 09/10/17 23:56 ABG pO2 54 mmHg (85-104) L 09/10/17 23:56 ABG O2 Saturation 90 % (95-98) L 09/10/17 23:56 PT/INR, D-dimer PT 14.0 Seconds (9.4-12.1) H 09/10/17 23:30 - Impressions Impressions Abdomen/Pelvis CT 09/11/17 09:23 IMPRESSION: 1. Bilateral perihilar and suprahilar airspace opacities, with an appearance most suggestive of pulmonary edema. Multifocal or atypical infection could have a similar appearance. 2. Small bilateral pleural effusions are present with compressive atelectasis of the lung bases. A small amount of consolidation cannot be entirely excluded. 3. No acute process in the abdomen. 4. Cirrhotic appearance of the liver, with borderline splenomegaly. 5. Right adrenal adenoma. 6. Layering density in the gallbladder, which could represent excreted contrast or milk of calcium bile. D/ / 09/11/2017 14:19:28 Dedrick Wright MD / [employer] Interpreting Provider: Dedrick Wright MD Chest CT 09/11/17 09:23 IMPRESSION: 1. Bilateral perihilar and suprahilar airspace opacities, with an appearance most suggestive of pulmonary edema. Multifocal or atypical infection could have a similar appearance. 2. Small bilateral pleural effusions are present with compressive atelectasis of the lung bases. A small amount of consolidation cannot be entirely excluded. 3. No acute process in the abdomen. 4. Cirrhotic appearance of the liver, with borderline splenomegaly. 5. Right adrenal adenoma. 6. Layering density in the gallbladder, which could represent excreted contrast or milk of calcium bile. 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 Most likely related to . (5) Pneumonia Current Visit: Yes Status: Acute Qualifiers: Pneumonia type: due to other aerobic Gram-negative bacteria Laterality: bilateral Lung location: lower lobe of lung Qualified Code(s): J15.6 - Pneumonia due to other Gram-negative bacteria (6) Hypokalemia Current Visit: No Status: Acute (7) Anemia Current Visit: Yes Status: Chronic Qualifiers: Anemia type: iron deficiency Iron deficiency anemia type: chronic blood loss Qualified Code(s): D50.0 - Iron deficiency anemia secondary to blood loss (chronic) (8) CAD (coronary artery disease) Current Visit: Yes Status: Chronic Qualifiers: Coronary Disease-Associated Artery/Lesion type: [place] artery [place] vs. transplanted heart: [place] heart Associated angina: without angina Qualified Code(s): I25.10 - Atherosclerotic heart disease of [place] coronary artery without angina pectoris (9) CKD (chronic kidney disease) Current Visit: Yes Status: Chronic Qualifiers: Chronic kidney disease stage: stage 3 (moderate) Qualified Code(s): N18.3 - Chronic kidney disease, stage 3 (moderate) (10) COPD (chronic obstructive pulmonary disease) Current Visit: Yes Status: Chronic Qualifiers: COPD type: unspecified COPD Qualified Code(s): J44.9 - Chronic obstructive pulmonary disease, unspecified (11) HTN (hypertension) Current Visit: Yes Status: Chronic Qualifiers: Hypertension type: essential hypertension Qualified Code(s): I10 - Essential (primary) hypertension - Constitutional Vitals: Temp Pulse Resp BP Pulse Ox 98.2 F 78 18 125/70 93 09/12/17 15:11 09/12/17 15:11 09/12/17 15:28 09/12/17 15:11 09/12/17 15:28 Internal Medicine: Result - Labs CBC & Chem 7: 09/12/17 05:02 09/12/17 05:02 Labs: Short CBC 09/12/17 Range/Units 05:02 WBC 5.1 (4.3-11.1) K/mcL Hgb 8.0 L (11.5-15.4) g/dL Hct 26.8 L (35.3-44.9) % Plt Count 121 L (140-400) K/mcL Neutrophils # 3.8 (1.6-8.9) K/mcL BMP 09/12/17 05:02 Sodium 142 Potassium 2.8 L Chloride 104 Carbon Dioxide 28 BUN 18 Creatinine 1.20 Glucose 123 H Calcium 8.6 Liver Function 09/12/17 Range/Units 05:02 Total Bilirubin 0.7 (0.3-1.0) mg/dL AST 17 (13-39) Units/L ALT 10 (7-52) Units/L Alkaline Phosphatase 45 (34-104) Units/L Albumin 3.4 L (3.5-5.7) g/dL - ABG Interpretation ABG results: ABG ABG pH 7.47 pH Units (7.32-7.45) H 09/10/17 23:56 ABG pCO2 40 mmHg (35-45) 09/10/17 23:56 ABG pO2 54 mmHg (85-104) L 09/10/17 23:56 ABG O2 Saturation 90 % (95-98) L 09/10/17 23:56 PT/INR, D-dimer PT 14.0 Seconds (9.4-12.1) H 09/10/17 23:30 - Impressions Impressions Abdomen/Pelvis CT 09/11/17 09:23 IMPRESSION: 1. Bilateral perihilar and suprahilar airspace opacities, with an appearance most suggestive of pulmonary edema. Multifocal or atypical infection could have a similar appearance. 2. Small bilateral pleural effusions are present with compressive atelectasis of the lung bases. A small amount of consolidation cannot be entirely excluded. 3. No acute process in the abdomen. 4. Cirrhotic appearance of the liver, with borderline splenomegaly. 5. Right adrenal adenoma. 6. Layering density in the gallbladder, which could represent excreted contrast or milk of calcium bile. D/ / 09/11/2017 14:19:28 Dedrick Wright MD / [employer] Interpreting Provider: Dedrick Wright MD Chest CT 09/11/17 09:23 IMPRESSION: 1. Bilateral perihilar and suprahilar airspace opacities, with an appearance most suggestive of pulmonary edema. Multifocal or atypical infection could have a similar appearance. 2. Small bilateral pleural effusions are present with compressive atelectasis of the lung bases. A small amount of consolidation cannot be entirely excluded. 3. No acute process in the abdomen. 4. Cirrhotic appearance of the liver, with borderline splenomegaly. 5. Right adrenal adenoma. 6. Layering density in the gallbladder, which could represent excreted contrast or milk of calcium bile. D/ / 09/11/2017 14:19:28 Dedrick Wright MD / [employer] Interpreting Provider: Dedrick Wright MD Echocardiogram 09/12/17 11:10 Impressions: LVEF 55-60% Moderate concentric left ventricular hypertrophy. Peak and mean gradients are 87 52 mmHg, respectively of bioprosthetic aortic valve replacement which is severe. Valve not well visualized but appears to have severely reduced excursion in the parasternal long axis view. Left Ventricular Wall Motion: Rest Echo Findings All wall segments showed normal motion. Findings: Study Quality * Technically adequate exam. Right Ventricle * Normal right ventricular structure and function. Left Atrium * Normal left atrial size. Right Atrium * Normal right atrial size. Interatrial Septum * No evidence of PFO by color Doppler. Aorta * Normally sized aortic root. Pericardium * The pericardium appears normal. ECG Findings * Sinus rhythm with BBB. Left Ventricle * Moderate concentric left ventricular hypertrophy. * Atypical septal motion consistent with post-operative status. * LVEF 55-60%. Mitral Valve * Moderately calcified mitral valve leaflets. IVC * Normal IVC dimensions and inspiratory collapse. Aortic Valve * Severe aortic stenosis. * Peak and mean gradients are 87 52 mmHg, respectively. - Attending Attestation I examined this patient and my medical decision-making was reviewed with the Resident Physician on 09/12/17. I agree with the documented findings, disposition and treatment plan as described except to the extent set forth below. Ms Chilel is currently admitted for acute hypoxic resp failure due to CHF from . She remains moderate to high risk due to potential for worsening clinical status. Ms Chilel is breathing better today. She is off oxygen. No fever or chills. Still diuresing. Echo shows severe . Exam alert Comfortable Mucus membranes dry Heart reg with murmur Lungs clearer Abd soft I/P 1. Resp failure 2. CHF 3. Further diagnoses and plan as above.
[2017-09-12] MEDS: Sennosides 8.6 MG TABLET PO SCH ×2 (14:05→20:35)
[2017-09-12] MEDS: Baclofen 10 MG TABLET PO PRN (20:35)
[2017-09-12] MEDS: *HR* HYDROcodone/Acet 5/325 mg TABLET PO PRN (20:35)
[2017-09-13] MEDS: Ipratropium/Albuterol Neb 3 ML IH SCH ×7 (00:50→23:47)
[2017-09-13] MEDS: Piperacillin/Tazobactam 3.375 GM in 0.9 % Sodium Chloride Mini Bag 100 ML IVPB SCH ×2 (00:50→08:01)
[2017-09-13 04:09] LABS: Basophils % 0.4 %; Eosinophils # 0.1 K/mcL (0.0-0.6); Eosinophils % 1.6 %; Hematocrit 29.9 % (35.3-44.9); Hemoglobin 8.9 g/dL (11.5-15.4); Immature Granulocytes % 0.6 % (0-4); Lymphocytes # 0.9 K/mcL (0.6-4.6); Lymphocytes % 17.3 %; Mean Corpuscular HGB Conc 29.8 g/dL (31.6-35.5); Mean Corpuscular Volume 90.6 fL (83.0-100.0); Mean Platelet Volume 10.5 fL (9.4-12.4); Monocytes # 0.5 K/mcL (0.0-1.3); Monocytes % 9.1 %; Neutrophils # 3.5 K/mcL (1.6-8.9); Platelet Count 133 K/mcL (140-400); Red Cell Distribution Width 16.2 % (11.5-14.5)
[2017-09-13 04:25] LABS: BUN/Creatinine Ratio 13 (6-26); Blood Urea Nitrogen 14 mg/dL (8-23); Calcium 9.1 mg/dL (8.6-10.3); Carbon Dioxide 29 mEq/L (23-29); Chloride 101 mEq/L (98-107); Glucose 130 mg/dL (70-105); Osmolality,Calculated 290 (280-300); Potassium 3.3 mEq/L (3.5-5.1); Sodium 139 mEq/L (136-145); eGFR For African Americans > 60 (> 60); eGFR For Non-African Americans 51 (> 60)
[2017-09-13] MEDS: Furosemide 20 MG/2 ML VIAL IVP SCH ×2 (08:01→18:34)
[2017-09-13 08:33] LABS: Mycoplasma pneumoniae IgG 0.15 U/L (<=0.09)
[2017-09-13] MEDS: *HR* Amiodarone 200 MG TABLET PO SCH (09:02)
[2017-09-13] MEDS: amLODIPine 5 MG TABLET PO SCH (09:03)
[2017-09-13] MEDS: Sennosides 8.6 MG TABLET PO SCH ×2 (09:03→21:10)
[2017-09-13] MEDS: Aspirin Enteric Coated 81 MG Tablet PO SCH (09:03)
[2017-09-13] MEDS ORDERED: traMADol 50 MG TABLET PO PRN (09:59)
--- NOTE | 2017-09-13 10:00 | Internal Med Progress Note ---
Date of Encounter: 09/13/17 Time of Encounter: 09:58 - Assessment and plan (1) Acute respiratory failure with hypoxia Current Visit: Yes Status: Resolved Assessment and plan: Currently off oxygen. Continuing to monitor. (2) Pulmonary edema Current Visit: Yes Status: Acute Assessment and plan: Continues to diurese. Overall she is negative fluid balance. Adjust meds as able. 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 Will need further follow up with her physician in [place]. (4) NSTEMI (non-ST elevated myocardial infarction) Current Visit: Yes Status: Suspected Assessment and plan: Most likely related to . (5) Pneumonia Current Visit: Yes Status: Acute Assessment and plan: Clinically she is much improved. I am not sure there was distinct pneumonia. CXR repeat today. Stop abx and follow clinically. Qualifiers: Pneumonia type: due to other aerobic Gram-negative bacteria Laterality: bilateral Lung location: lower lobe of lung Qualified Code(s): J15.6 - Pneumonia due to other Gram-negative bacteria (6) Hypokalemia Current Visit: No Status: Acute Assessment and plan: Continue to replace. (7) Anemia Current Visit: Yes Status: Chronic Assessment and plan: Monitor H/H. Qualifiers: Anemia type: iron deficiency Iron deficiency anemia type: chronic blood loss Qualified Code(s): D50.0 - Iron deficiency anemia secondary to blood loss (chronic) (8) CAD (coronary artery disease) Current Visit: Yes Status: Chronic Assessment and plan: Chronic issue Qualifiers: Coronary Disease-Associated Artery/Lesion type: [place] artery [place] vs. transplanted heart: [place] heart Associated angina: without angina Qualified Code(s): I25.10 - Atherosclerotic heart disease of [place] coronary artery without angina pectoris (9) CKD (chronic kidney disease) Current Visit: Yes Status: Chronic Assessment and plan: Avoid nephrotoxins as able. Qualifiers: Chronic kidney disease stage: stage 3 (moderate) Qualified Code(s): N18.3 - Chronic kidney disease, stage 3 (moderate) (10) COPD (chronic obstructive pulmonary disease) Current Visit: Yes Status: Chronic Assessment and plan: Chronic issue Qualifiers: COPD type: unspecified COPD Qualified Code(s): J44.9 - Chronic obstructive pulmonary disease, unspecified (11) HTN (hypertension) Current Visit: Yes Status: Chronic Assessment and plan: Chronic issue Qualifiers: Hypertension type: essential hypertension Qualified Code(s): I10 - Essential (primary) hypertension - Subjective Interval history: Ms Chilel is currently admitted for acute exac CHF. She remains moderate to high risk due to potential for worsening clinical status. Ms Chilel is still dyspneic especially with movement. She is still on IV Lasix. No fever or chills. No cough. No GI issue. Still diuresing - using toilet frequently. Is negative 3600 so far. No CP. - Constitutional Vitals: Temp Pulse Resp BP Pulse Ox 98.6 F 86 16 145/65 95 09/13/17 07:38 09/13/17 08:31 09/13/17 07:39 09/13/17 07:38 09/13/17 07:39 General appearance: Present: cooperative, A&O X 3, answers questions appropriately - Head Head exam: Present: normocephalic - Eye Eye exam: Present: EOMI, conjuntiva pink - ENT ENT exam: Present: mucous membranes moist - Respiratory Respiratory exam: Present: rales. Absent: rhonchi, wheezes Additional comments: Bibasilar rales noted. - Cardiovascular Cardiovascular exam: Present: RRR. Absent: tachycardia - GI/Abdominal GI/Abdominal exam: Present: soft. Absent: tenderness - Extremities Exam Extremities exam: Present: warm - Neurological Exam Neurological exam: Present: alert, oriented X3 - Skin Skin exam: Present: dry, warm Internal Medicine: Result - Labs CBC & Chem 7: 09/13/17 03:36 09/13/17 03:36 Labs: Short CBC 09/13/17 Range/Units 03:36 WBC 5.0 (4.3-11.1) K/mcL Hgb 8.9 L (11.5-15.4) g/dL Hct 29.9 L (35.3-44.9) % Plt Count 133 L (140-400) K/mcL Neutrophils # 3.5 (1.6-8.9) K/mcL BMP 09/13/17 03:36 Sodium 139 Potassium 3.3 L Chloride 101 Carbon Dioxide 29 BUN 14 Creatinine 1.05 Glucose 130 H Calcium 9.1 - ABG Interpretation ABG results: ABG ABG pH 7.47 pH Units (7.32-7.45) H 09/10/17 23:56 ABG pCO2 40 mmHg (35-45) 09/10/17 23:56 ABG pO2 54 mmHg (85-104) L 09/10/17 23:56 ABG O2 Saturation 90 % (95-98) L 09/10/17 23:56 PT/INR, D-dimer PT 14.0 Seconds (9.4-12.1) H 09/10/17 23:30 - Impressions Impressions Echocardiogram 09/12/17 11:10 Impressions: LVEF 55-60% Moderate concentric left ventricular hypertrophy. Peak and mean gradients are 87 52 mmHg, respectively of bioprosthetic aortic valve replacement which is severe. Valve not well visualized but appears to have severely reduced excursion in the parasternal long axis view. Left Ventricular Wall Motion: Rest Echo Findings All wall segments showed normal motion. Findings: Study Quality * Technically adequate exam. Right Ventricle * Normal right ventricular structure and function. Left Atrium * Normal left atrial size. Right Atrium * Normal right atrial size. Interatrial Septum * No evidence of PFO by color Doppler. Aorta * Normally sized aortic root. Pericardium * The pericardium appears normal. ECG Findings * Sinus rhythm with BBB. Left Ventricle * Moderate concentric left ventricular hypertrophy. * Atypical septal motion consistent with post-operative status. * LVEF 55-60%. Mitral Valve * Moderately calcified mitral valve leaflets. IVC * Normal IVC dimensions and inspiratory collapse. Aortic Valve * Severe aortic stenosis. * Peak and mean gradients are 87 52 mmHg, respectively. Consult Discharge Plan - Plan Referrals: Titi Garcia DO [Primary Care Provider] - 09/21/17 1:00 pm
--- NOTE | 2017-09-13 11:00 | Cardiology Consult Note ---
Date of Encounter: 09/13/17 Time of Encounter: 10:45 Assessment and Plan (1) Pulmonary edema Current Visit: Yes Status: Acute Patient currently denies shortness of breath. Chest CT demonstrated pulmonary edema and concerns for pneumonia. -agree with radha Qualifiers: Chronicity: acute Qualified Code(s): J81.0 - Acute pulmonary edema (2) Prosthetic aortic valve stenosis Current Visit: Yes Status: Chronic She reported she had a prosthetic aortic valve replacement 5yr ago at [facility] because she was high risk. 09/12/2017 TTE: EF 55-60%, moderate LV hypertrophy. Peak mean gradient 87 5mmHg respective of bioprosthetic aortic valve replacement which is severe. Severely reduced excursion. 07/08/2017 TTE: EF 55%, borderline stenosis and pulmonary hypertension. Per cardiology: -requesting cardiology records from [facility] (3) HCAP (healthcare-associated pneumonia) Current Visit: Yes Status: Acute Currently being treated for hospital acquired pneumonia demonstrated by CT imaging with zosyn and vancomycin. (4) CAD (coronary artery disease) Current Visit: Yes Status: Chronic 2014 LHC: left main normal, LAD patent mid stent, RCA patent stent in proximal to mid portion. 09/12/2017 TTE: EF 55-60%, moderate LV hypertrophy. Peak mean gradient 87 5mmHg respective of bioprosthetic aortic valve replacement which is severe. Severely reduced excursion. -continue home asa, toprol, norvasc, lipitor Qualifiers: Coronary Disease-Associated Artery/Lesion type: [place] artery [place] vs. transplanted heart: [place] heart Associated angina: without angina Qualified Code(s): I25.10 - Atherosclerotic heart disease of [place] coronary artery without angina pectoris (5) A-fib Current Visit: Yes Status: Acute History of Afib rate cotrolled with amioderone. Not on anticoagulation due to GI bleed in past due to AVM. Hgd 8.9 [id number] score 6 (female, age, CHF, HTN, LHC) Qualifiers: Qualified Code(s): I48.91 - Unspecified atrial fibrillation (6) Elevated troponin Current Visit: Yes Status: Acute found to have an elevated troponin that has been trending down. 0.27, 0.23, 0.21 Patient denies chest pain. -will monitor Discussion w patient/family: The assessment and plan as outlined above was discussed with the patient and/or family members who expressed understanding and agreement. All questions were answered. Thank you for involving us in the care of your patient. Please call with any questions. History of Present Illness Consult date: 09/13/17 Requesting physician: Montez Vides Consult reason: TTE showing severe Chief complaint: dyspnea History of present illness: Ms. Chilel is a 77 year old female with past medical history of A.fib, bio aortic valve, CAD 2 sents, CHF, COPD, HTN, HLD, AVM, who presented to [facility] complaining of shortness of breath that she woke up with and told her she needed to go to the hospital. She stated she felt unwell, short of breath, lightheaded, weak, headache, orthopnea, PND. She has occasional leg edema. Denied fever, chills, chest pain, syncope, palpitations. Chest CT demonstrated pulmonary edema and concerns for pneumonia. She was admitted and treated for pulmonary edema and pneumonia. She had her aortic valve replaced 5yr ago at [facility]. 07/2016 TTE: EF 60% no 06/2017: TTE: EF 55%, borderline and pulmonary hypertension. 09/12/2017 TTE: EF 55-60%, moderate LV hypertrophy. Peak mean gradient 87 5mmHg respective of bioprosthetic aortic valve replacement which is severe. Severely reduced excursion. Past Med Surg Social Fam HX - Past Medical History Medical history: atrial fibrillation, cirrhosis, CHF, COPD, coronary artery disease, fibromyalgia, GERD, hyperlipidemia, hypertension, osteoporosis Psychiatric history: anxiety, depression - Past Surgical History Surgical History: heart valve replacement, hysterectomy, orthopedic, other - Social History Smoking Status: Former smoker Alcohol use: none Drug use: none - Family History Mother Living Status: Father Living Status: Medications and Allergies Duloxetine HCl [Cymbalta] 120 mg PO DAILY 05/10/17 [History] Oxybutynin Chloride [Ditropan Xl] 10 mg PO DAILY 05/10/17 [History] Simvastatin [Zocor] 20 mg PO HS 05/10/17 [History] Aspirin Enteric Coated [Aspirin EC] 81 mg PO DAILY 06/27/17 [History] Amiodarone [Cordarone] 200 mg PO DAILY tablet 07/06/17 [Rx] Amoxicillin/Clavulanate [Augmentin] 875 mg PO BIDWM #4 tablet 07/06/17 [Rx] Baclofen [Lioresal] 10 mg PO TID PRN #10 07/06/17 [Rx] Furosemide [Lasix] 20 mg PO DAILY tablet 07/06/17 [Rx] HYDROcodone/Acet 5/325 mg [[place] 5-325 mg] 1 tab PO Q6H PRN #10 tab 07/06/17 [Rx ] Omeprazole [PriLOSEC] 40 mg PO BIDAC capsule. 07/06/17 [Rx] amLODIPine [Norvasc] 5 mg PO DAILY tablet 07/06/17 [Rx] Atorvastatin [Lipitor] 10 mg PO HS 09/12/17 [History] Metoprolol XL (24 HR) Succ [Toprol XL] 25 mg PO DAILY 09/12/17 [History] Potassium Chloride [Klor-Con 10] 10 meq PO BID 09/12/17 [History] Tramadol HCl [Ultram] 50 mg PO QID PRN 09/12/17 [History] 3 Allergy/AdvReac Type Severity Reaction Status Date / Time pregabalin [From Lyrica] Allergy Mild Confusion Verified 05/10/17 11:21 gabapentin Allergy Itching Verified 05/10/17 11:21 morphine AdvReac Unknown Agitated Verified 07/04/17 10:45 All Systems Review: The remainder of the systems were reviewed and are negative - Constitutional Constitutional: headache(s), weakness, no chills, no fever(s) - Cardiovascular Cardiovascular: leg edema, lightheadedness, no chest pain at rest, no chest pain with exertion, no diaphoresis, no palpitations - Gastrointestinal Gastrointestinal: abdominal pain, no nausea - Genitourinary Genitourinary: no dysuria - Integumentary Integumentary: no erythema - Neurological Neurological: no abnormal speech, no syncope Physical Examination Vital Signs, Last 4 Hours Temp Pulse Resp BP Pulse Ox 09/13/17 08:31 86 09/13/17 07:39 16 95 09/13/17 07:38 98.6 F 84 17 145/65 95 General: Conversant, No Apparent Distress HEENT: Atraumatic, Mucus Membranes Moist Neck: No JVD Cardiac: Reg Rate and Rhythm, Normal S1 and S2 Lungs: Normal Breath Sounds, No Wheeze, Rales, Rhonchi Neuro: Alert and responsive, No focal deficits noted Abdomen: Soft, Non-Tender Skin: No rashes noted on visualized skin Musculoskeletal: No Chest Wall Tenderness Extremities: No Edema Results 09/13/17 03:36 09/13/17 03:36 Lab Results 09/13/17 03 03:36 03:36 WBC 5.0 Hgb 8.9 L Hct 29.9 L Plt Count 133 L Sodium 139 Potassium 3.3 L Chloride 101 Carbon Dioxide 29 BUN 14 Creatinine 1.05 Glucose 130 H Calcium 9.1 Consult Discharge Plan - Plan Referrals: Titi Garcia DO [Primary Care Provider] - 09/21/17 1:00 pm
[2017-09-13] MEDS ORDERED: Methyl Salicylate/Menthol 28 GM TUBE TP PRN (15:18)
[2017-09-13] MEDS: *HR* HYDROcodone/Acet 5/325 mg TABLET PO PRN (15:38)
[2017-09-14] MEDS: *HR* HYDROcodone/Acet 5/325 mg TABLET PO PRN (01:36)
[2017-09-14] MEDS: Ipratropium/Albuterol Neb 3 ML IH SCH ×3 (04:30→11:46)
[2017-09-14 05:39] LABS: Hematocrit 31.7 % (35.3-44.9); Hemoglobin 9.3 g/dL (11.5-15.4); Mean Corpuscular HGB Conc 29.3 g/dL (31.6-35.5); Mean Corpuscular Hemoglobin 26.4 pg (28.0-33.3); Mean Corpuscular Volume 90.1 fL (83.0-100.0); Mean Platelet Volume 10.4 fL (9.4-12.4); Platelet Count 149 K/mcL (140-400); Red Blood Count 3.52 M/mcL (3.82-4.97)
[2017-09-14 05:59] LABS: BUN/Creatinine Ratio 17 (6-26); Blood Urea Nitrogen 18 mg/dL (8-23); Calcium 9.3 mg/dL (8.6-10.3); Carbon Dioxide 27 mEq/L (23-29); Chloride 104 mEq/L (98-107); Glucose 129 mg/dL (70-105); Osmolality,Calculated 294 (280-300); Potassium 3.7 mEq/L (3.5-5.1); Sodium 140 mEq/L (136-145); eGFR For African Americans > 60 (> 60); eGFR For Non-African Americans 51 (> 60)
[2017-09-14] MEDS ORDERED: Metoprolol XL (24 HR) Succ 25 MG TAB.ER.24H PO SCH (09:00)
[2017-09-14] MEDS ORDERED: Furosemide 40 MG TABLET PO SCH (09:15)
[2017-09-14] MEDS: Aspirin Enteric Coated 81 MG Tablet PO SCH (09:38)
[2017-09-14] MEDS: *HR* Amiodarone 200 MG TABLET PO SCH (09:38)
[2017-09-14] MEDS: Sennosides 8.6 MG TABLET PO SCH (09:38)
[2017-09-14] MEDS: amLODIPine 5 MG TABLET PO SCH (09:38)
[2017-09-14 12:09] VITALS: BP 148/79
--- NOTE | 2017-09-14 14:08 | Discharge Summary ---
<Prasanth Gramajo - Last Filed: 09/14/17 15:28> - NOTES TO OUTPATIENT PROVIDER Notes to Outpatient Provider: Will need close follow up with her analytical research program manager to discuss need for correction of her bioprosthetic, aortic valve stenosis. Close monitoring of her fluid status is going to be needed, we are providing instructions about the potential need to take more periodically. Orders not resulted at time of discharge: Pending orders 09/10/17 20:54 Culture,Sputum with Gram Stain [RM] Routine Respiratory Infection Panel [MOLMIC] Routine 09/10/17 23:30 Culture,Blood [BC] Routine Date of Encounter: 09/14/17 Time of Encounter: 09:30 - Discharge Diagnosis (1) Acute respiratory failure with hypoxia Priority: Primary Status: Resolved (2) Pulmonary edema Priority: Primary Status: Resolved Qualifiers: Chronicity: acute Qualified Code(s): J81.0 - Acute pulmonary edema (3) Prosthetic aortic valve stenosis Priority: Primary Status: Chronic (4) NSTEMI (non-ST elevated myocardial infarction) Priority: Primary Status: Suspected (5) Pneumonia Priority: Primary Status: Ruled-out Qualifiers: Pneumonia type: due to other aerobic Gram-negative bacteria Laterality: bilateral Lung location: lower lobe of lung Qualified Code(s): J15.6 - Pneumonia due to other Gram-negative bacteria (6) Hypokalemia Priority: Primary Status: Resolved (7) Anemia Priority: Primary Status: Chronic Qualifiers: Anemia type: iron deficiency Iron deficiency anemia type: chronic blood loss Qualified Code(s): D50.0 - Iron deficiency anemia secondary to blood loss (chronic) (8) CAD (coronary artery disease) Priority: Primary Status: Chronic Qualifiers: Coronary Disease-Associated Artery/Lesion type: [place] artery [place] vs. transplanted heart: [place] heart Associated angina: without angina Qualified Code(s): I25.10 - Atherosclerotic heart disease of [place] coronary artery without angina pectoris (9) CKD (chronic kidney disease) Priority: Primary Status: Chronic Qualifiers: Chronic kidney disease stage: stage 3 (moderate) Qualified Code(s): N18.3 - Chronic kidney disease, stage 3 (moderate) (10) COPD (chronic obstructive pulmonary disease) Priority: Primary Status: Chronic Qualifiers: COPD type: unspecified COPD Qualified Code(s): J44.9 - Chronic obstructive pulmonary disease, unspecified (11) HTN (hypertension) Priority: Primary Status: Chronic Qualifiers: Hypertension type: essential hypertension Qualified Code(s): I10 - Essential (primary) hypertension Hospital course: Ms. Chilel is a 77 year old female with prior medical history of bioprosthetic aortic valve, CAD with stents, CHF, and cirrhosis resented to [facility] on 09/10/17 Reporting a multiweek history of a nonproductive cough and dyspnea for one night. Upon presentation she was hypoxic with decreased level of consciousness. She was initially started on antibiotics and began diuresis. Good urinary output was achieved and patient began to have improvement in respiratory status. After couple days a continue diuresis, antibiotics were stopped and she continued to improve. An echocardiogram was obtained that showed an EF of 55-60 % with severe stenosis of the bioprosthetic valve. She was seen by cardiology here, recommended close follow-up for potential correction of her stenosis. As of today she is safe/stable for discharge with her home medications and instructions of increased Lasix usage if increase of weight is seen. Close follow-up with cardiology has been set up. Discharge discussed with: patient, nurse - Time Spent with Patient Total time spent providing and/or coordinating discharge services: Greater than 30 minutes - Discharge Medications Home Medications: Duloxetine HCl [Cymbalta] 120 mg PO DAILY 05/10/17 [History] Oxybutynin Chloride [Ditropan Xl] 10 mg PO DAILY 05/10/17 [History] Aspirin Enteric Coated [Aspirin EC] 81 mg PO DAILY 06/27/17 [History] Amiodarone [Cordarone] 200 mg PO DAILY tablet 07/06/17 [Rx] Baclofen [Lioresal] 10 mg PO TID PRN #10 07/06/17 [Rx] Furosemide [Lasix] 20 mg PO DAILY tablet 07/06/17 [Rx] HYDROcodone/Acet 5/325 mg [[place] 5-325 mg] 1 tab PO Q6H PRN #10 tab 07/06/17 [Rx ] Omeprazole [PriLOSEC] 40 mg PO BIDAC capsule. 07/06/17 [Rx] amLODIPine [Norvasc] 5 mg PO DAILY tablet 07/06/17 [Rx] Atorvastatin [Lipitor] 10 mg PO HS 09/12/17 [History] Metoprolol XL (24 HR) Succ [Toprol Xl] 25 mg PO DAILY 09/12/17 [History] Potassium Chloride [Klor-Con 10] 10 meq PO BID 09/12/17 [History] Tramadol HCl [Ultram] 50 mg PO QID PRN 09/12/17 [History] Allergies/Adverse Reactions: 3 Allergy/AdvReac Type Severity Reaction Status Date / Time pregabalin [From Lyrica] Allergy Mild Confusion Verified 05/10/17 11:21 gabapentin Allergy Itching Verified 05/10/17 11:21 morphine AdvReac Unknown Agitated Verified 07/04/17 10:45 Date of admission: 09/10/17 18:01 Primary care physician: Titi Garcia DO Consults: 09/13/17 09:22 Consult to Occupational Therapy [CONS] Routine Comment: Evaluate, develop and implement POC Reason for Consult: d/c planning, pt unsteady Does patient have active BEDREST order?: No Is patient medically & hemodynamically stable?: Yes Patient assessed for mobility or mobilized this visit?: No Consult to Physical Therapy [CONS] Routine Comment: Evaluate, develop and implement POC Reason for Consult: d/c planning, pt unsteady Does patient have active BEDREST order?: No Is patient medically & hemodynamically stable?: Yes Patient assessed for mobility or mobilized this visit?: No Consult to Hand Blocker [CONS] Routine Reason for SW Consult: d/c planning 09/13/17 15:38 Consult to Cardiology [CONS] Routine Comment: Consulting Provider: Cardiology [facility] Reason for Consult: severe of prosthetic valve Call Completed: Yes Discharging clinician: Prasanth Gramajo Anticipated date of discharge: 09/14/17 - Constitutional Vitals: Temp Pulse Resp BP Pulse Ox 98.1 F 86 20 148/79 100 09/14/17 12:05 09/14/17 12:05 09/14/17 12:05 09/14/17 12:05 09/14/17 12:05 General appearance: Present: cooperative, A&O X 3, answers questions appropriately Exam: General: Cooperative, pleasant, no acute distress, alert and oriented 3, answers questions appropriately HEENT: Normocephalic, atraumatic, Conjunctiva pink, sclera anicteric, oral mucosa moist Respiratory: No accessory muscle usage, mild bibasilar Rales Cardiovascular: Regular rate and rhythm, S1 and S2 present, no murmurs/rubs/ gallops/clicks appreciated GI/abdominal: Nondistended, nontender, soft, normal bowel sounds, no peritoneal signs Extremities: No calf tenderness, no pedal edema appreciated, warm, lower extremity pulses palpable and symmetrical Neurological: Alert and oriented 3, no facial droop, no focal deficits Skin: Dry, intact, normal color - Patient Status Disposition: Home, Self-Care Condition: Good Functional capacity at discharge: independent ambulation Overall status at discharge: patient is progressing back to baseline - Discharge Instructions Instructions: Heart Failure (DC) Follow Up With: Titi Garcia DO [Primary Care Provider] - 09/21/17 1:00 pm Everton Larsen DO [Partnered Physician] - (the office will call and work her in for an appointment) Additional Instructions: Please return to Emergency Department if development of chest pain, increased shortness of breath, fever or chills Please check your weight daily. If your weight ever increases by 2 or more pounds in 2 days, please take an extra dose of lasix and call your analytical research program manager Continue to take all home medications as you were previously Follow-up with her PCP 1-2 weeks Follow-up with her analytical research program manager, Dr. Larsen per cardiology - Diet and Activity Activity: increase activity as tolerated Diet: low fat, low cholesterol <Carrington Burnham - Last Filed: 09/14/17 17:25> Orders not resulted at time of discharge: Pending orders 09/10/17 20:54 Culture,Sputum with Gram Stain [RM] Routine Respiratory Infection Panel [MOLMIC] Routine 09/10/17 23:30 Culture,Blood [BC] Routine Date of Encounter: 09/14/17 Hospital course: Ms. Chilel is a 77 year old female - Time Spent with Patient Total time spent providing and/or coordinating discharge services: Date of admission: 09/10/17 18:01 Primary care physician: Titi Garcia DO Consults: 09/13/17 09:22 Consult to Occupational Therapy [CONS] Routine Comment: Evaluate, develop and implement POC Reason for Consult: d/c planning, pt unsteady Does patient have active BEDREST order?: No Is patient medically & hemodynamically stable?: Yes Patient assessed for mobility or mobilized this visit?: No Consult to Physical Therapy [CONS] Routine Comment: Evaluate, develop and implement POC Reason for Consult: d/c planning, pt unsteady Does patient have active BEDREST order?: No Is patient medically & hemodynamically stable?: Yes Patient assessed for mobility or mobilized this visit?: No Consult to Hand Blocker [CONS] Routine Reason for SW Consult: d/c planning 09/13/17 15:38 Consult to Cardiology [CONS] Routine Comment: Consulting Provider: Cardiology [facility] Reason for Consult: severe of prosthetic valve Call Completed: Yes - Constitutional Vitals: Temp Pulse Resp BP Pulse Ox 98.1 F 86 20 148/79 100 09/14/17 12:05 09/14/17 12:05 09/14/17 12:05 09/14/17 12:05 09/14/17 12:05 - Attending Attestation I performed a [id number] diagnostic evaluation of this patient and my medical decision-making was reviewed with the Resident Physician, Dr Shashank Gramajo. I agree with the documented findings, disposition and treatment plan as described except to the extent set forth below. Patient denies chest pain. On exam she is in no acute distress. Heart is regular S1-S2 with a 4/6 systolic ejection murmur at the right upper sternal border Plan: The case discussed the case with cardiology. Patient is currently euvolemic. She will be discharged home. I instructed her to to follow-up with her analytical research program manager as soon as possible. I counseled her regarding the importance of compliance with medication, low-sodium and fluid restricted diet. Carrington Burnham MD
== END 2017-09-14 15:12 | disposition home or self-care (01) | DRG 280 ==
LOC: 2NNU 18:01 → SUATTDRO 18:01
PROVIDERS: ADMIT Internal Medicine; ATTEND Internal Medicine

== ENCOUNTER 2017-10-01 14:01 | Inpatient (IN) ==
[2017-10-01 14:46] LABS: Basophils % 0.3 %; Eosinophils % 0.3 %; Hematocrit 28.9 % (35.3-44.9); Hemoglobin 8.6 g/dL (11.5-15.4); Immature Granulocytes % 0.6 % (0-4); Lymphocytes # 0.6 K/mcL (0.6-4.6); Lymphocytes % 17.7 %; Mean Corpuscular HGB Conc 29.8 g/dL (31.6-35.5); Mean Corpuscular Hemoglobin 27.7 pg (28.0-33.3); Mean Corpuscular Volume 93.2 fL (83.0-100.0); Mean Platelet Volume 10.3 fL (9.4-12.4); Monocytes # 0.3 K/mcL (0.0-1.3); Monocytes % 7.6 %; Neutrophils # 2.4 K/mcL (1.6-8.9); Platelet Count 125 K/mcL (140-400); Red Cell Distribution Width 19.2 % (11.5-14.5); Segmented Neutrophils % 73.5 %
[2017-10-01 15:13] LABS: Troponin I < 0.03 ng/mL (< 0.04)
[2017-10-01 15:14] LABS: BUN/Creatinine Ratio 15 (6-26); Blood Urea Nitrogen 16 mg/dL (8-23); Calcium 9.4 mg/dL (8.6-10.3); Carbon Dioxide 27 mEq/L (23-29); Chloride 103 mEq/L (98-107); Glucose 122 mg/dL (70-105); Osmolality,Calculated 292 (280-300); Potassium 3.2 mEq/L (3.5-5.1); Sodium 140 mEq/L (136-145); eGFR For African Americans > 60 (> 60); eGFR For Non-African Americans 51 (> 60)
--- NOTE | 2017-10-01 15:15 | Emergency Department Note ---
Disposition Clinical Impression: Congestive heart failure Disposition: Admitted As Inpatient Condition: Serious Referrals: Titi Garcia DO [Primary Care Provider] - Forms: ED Satisfaction Letter Time of Disposition: 17:46 General Adult HPI - General Chief complaint: ED Shortness of Breath/Dyspnea Stated complaint: L arm pain, SOB Time Seen by Provider: 10/01/17 15:08 Source: patient Limitations: no limitations Nursing Notes Reviewed: Yes Vital Signs Reviewed: Yes - History of Present Illness HPI Narrative: Mrs. Chilel, a 69-year-old female, presents from [place] [facility] to the emergency department for evaluation of dyspnea and left arm pain. Patient no she believes her left arm pain secondary to her fibromyalgia. She notes a progressive dyspnea since that she now has orthopnea and sleeps in her chair. No chest pain, palpitations, diaphoresis, nausea, vomiting, abdominal pains, fever, chills, headache, changes in bowel or bladder. She is being evaluated by Dr. Larsen and has known failing bioprosthetic aortic valve placed in 2012 at [facility]. PMH: CAD with stent, hypertension, hyperlipidemia, Sy cirrhosis, COPD, iron deficiency anemia, fibromyalgia, GERD, chronic lower back pain, sciatica No current anticoagulant. Antiplatelet: Aspirin 81 daily Pain Scale: 8 - Related Data Home Medications Medication Instructions Recorded Confirmed Oxybutynin Chloride [Ditropan Xl] 10 mg PO DAILY 05/10/17 10/01/17 Aspirin Enteric Coated [Aspirin EC] 81 mg PO DAILY 06/27/17 10/01/17 Atorvastatin [Lipitor] 10 mg PO HS 09/12/17 10/01/17 Metoprolol XL (24 HR) Succ [Toprol 25 mg PO DAILY 09/12/17 10/01/17 Xl] Potassium Chloride [Klor-Con 10] 10 meq PO BID 09/12/17 10/01/17 Cyanocobalamin (Vitamin B-12) 1,000 mcg PO DAILY 10/01/17 10/01/17 [Vitamin B12] Ferrous Gluconate 324 mg PO BID 10/01/17 10/01/17 HydrOXYzine Pamoate [Vistaril] 50 mg PO Q6H PRN 10/01/17 10/01/17 Melatonin 15 mg PO HS 10/01/17 10/01/17 Omeprazole [PriLOSEC] 20 mg PO DAILY 10/01/17 10/01/17 Oxygen 2 l NS AD 10/01/17 10/01/17 amLODIPine [Norvasc] 5 mg PO QAM 10/01/17 10/01/17 Previous Rx's Medication Instructions Recorded Amiodarone [Cordarone] 200 mg PO DAILY tablet 07/06/17 Baclofen [Lioresal] 10 mg PO TID PRN #10 07/06/17 Furosemide [Lasix] 20 mg PO DAILY tablet 07/06/17 Allergies Allergy/AdvReac Type Severity Reaction Status Date / Time pregabalin [From Lyrica] Allergy Mild Confusion Verified 05/10/17 11:21 All systems ED: reviewed and negative except as stated. Review of Systems: As Per HPI Past Medical History - Past Medical History Medical history: Reports: atrial fibrillation, cirrhosis, CHF, COPD, coronary artery disease, fibromyalgia, GERD, hyperlipidemia, hypertension, osteoporosis Surgical history: Reports: heart valve replacement, hysterectomy, orthopedic, other Psychiatric history: Reports: anxiety, depression - Social History Smoking Status: Former smoker Alcohol use: Reports: none Drug use: Reports: none Physical Exam Vital Signs Reviewed General: Patient is alert, oriented, and in no acute distress. Head: atraumatic, normocephalic Eye: normal appearance, PERRL, EOMI, no scleral icterus, no conjunctival injection ENT: mucous membranes moist, normal external ear exam Neck: normal inspection, trachea midline, full ROM Chest: normal inspection, symmetric chest rise Respiratory: Good respiratory effort. Bilateral breath sounds are clear without wheezing, crackles, or rhonchi. Cardiovascular: Regular rate and rhythm. No clicks, rubs, gallops. Systolic murmur. Normal heart sounds. Bilateral posterior tibial pulses 2/4 equal. 1+ pitting edema equal bilaterally. Abdomen: Bowel sounds present normoactive x-4 quadrants. Abdomen is soft, nondistended, and nontender. No guarding or rebound. No organomegaly noted. Musculoskeletal: Spontaneously moving all extremities. Skin: warm, dry, intact. Neuro: Alert and oriented x4. Sensation light touch intact. Psych: Patient's affect is appropriate for situation. - General Limitations: no limitations General appearance: alert, in no apparent distress Course Course Narrative: Patient has 1+ pitting edema bilaterally as well as elevated troponin and bilateral pleural effusion. Lung sounds were clear on physical exam. Concern for acute exacerbation of congestive heart failure in the context of her valvular failure. EKG dated 10/01/09 14:19 interpreted as sinus rhythm with rate of 64. Prolonged QTc of 5-3. Left bundle branch block and is appropriately discordant. Nonspecific ST-T changes. Compared to previous dated 10/01/17 at 13:48 showing no acute ischemic changes comparison. Chest x-ray concerning for bilateral pulmonary edema. This is consistent based on history and physical. Work is concerning for elevated BNP. Troponin normal. Normal renal function. Chart check: Aortic valve replacement 11/2012 - this is likely bioprosthetic she has no mechanical sounds on auscultation Left heart catheter 4 with stents 16:40 I discussed the patient with on-call cardiology, Dr. Broussard. I discussed the above the patient. She prefers to come to this facility as it easy on her family. Additionally, she has yet to approach [facility] since being released from her initial valve replacement; she has not really approach them regarding the current status of her bioprosthetic valve. I discussed the patient with the admitting hospitalist, Dr. Segovia, who agrees to accept the patient for continued evaluation and management with cardiology following. Vital Signs Temperature 97.8 F 10/01/17 14:07 Pulse Rate 66 10/01/17 14:07 Respiratory Rate 18 10/01/17 14:07 Blood Pressure 132/61 10/01/17 14:07 O2 Sat by Pulse Oximetry 100 10/01/17 14:07 Temperature 97.8 F 10/01/17 14:07 Pulse Rate 65 10/01/17 17:21 Respiratory Rate 13 10/01/17 17:21 Blood Pressure 137/57 10/01/17 17:21 O2 Sat by Pulse Oximetry 100 10/01/17 17:21 Oxygen Delivery Oxygen Delivery Nasal Cannula Medical Decision Making - Lab Data Result diagrams: 10/01/17 14:35 10/01/17 14:35 Lab Results 10/01/17 10/01/17 10/01/17 Range/Units 14:35 14:35 14:35 WBC 3.3 L (4.3-11.1) K/mcL RBC 3.10 L (3.82-4.97) M/mcL Hgb 8.6 L (11.5-15.4) g/dL Hct 28.9 L (35.3-44.9) % MCV 93.2 (83.0-100.0) fL MCH 27.7 L (28.0-33.3) pg MCHC 29.8 L (31.6-35.5) g/dL RDW 19.2 H (11.5-14.5) % Plt Count 125 L (140-400) K/mcL MPV 10.3 (9.4-12.4) fL Immature Gran % 0.6 (0-4) % Seg Neutrophils % 73.5 % Lymphocytes % 17.7 % Monocytes % 7.6 % Eosinophils % 0.3 % Basophils % 0.3 % Neutrophils # 2.4 (1.6-8.9) K/mcL Lymphocytes # 0.6 (0.6-4.6) K/mcL Monocytes # 0.3 (0.0-1.3) K/mcL Eosinophils # 0.0 (0.0-0.6) K/mcL Basophils # 0.0 (0.0-0.2) K/mcL Sodium 140 (136-145) mEq/L Potassium 3.2 L (3.5-5.1) mEq/L Chloride 103 (98-107) mEq/L Carbon Dioxide 27 (23-29) mEq/L BUN 16 (8-23) mg/dL Creatinine 1.04 (0.60-1.20) mg/dL Est GFR ( Amer) > 60 (> 60) Est GFR (Non-Af Amer) 51 L (> 60) BUN/Creatinine Ratio 15 (6-26) Glucose 122 H (70-105) mg/dL Calculated Osmolality 292 (280-300) Lactic Acid 0.7 (0.5-2.2) mmol/L Calcium 9.4 (8.6-10.3) mg/dL Troponin I < 0.03 (< 0.04) ng/mL B-Natriuretic Peptide (Less than 100) pg/mL 10/01/17 Range/Units 14:35 WBC (4.3-11.1) K/mcL RBC (3.82-4.97) M/mcL Hgb (11.5-15.4) g/dL Hct (35.3-44.9) % MCV (83.0-100.0) fL MCH (28.0-33.3) pg MCHC (31.6-35.5) g/dL RDW (11.5-14.5) % Plt Count (140-400) K/mcL MPV (9.4-12.4) fL Immature Gran % (0-4) % Seg Neutrophils % % Lymphocytes % % Monocytes % % Eosinophils % % Basophils % % Neutrophils # (1.6-8.9) K/mcL Lymphocytes # (0.6-4.6) K/mcL Monocytes # (0.0-1.3) K/mcL Eosinophils # (0.0-0.6) K/mcL Basophils # (0.0-0.2) K/mcL Sodium (136-145) mEq/L Potassium (3.5-5.1) mEq/L Chloride (98-107) mEq/L Carbon Dioxide (23-29) mEq/L BUN (8-23) mg/dL Creatinine (0.60-1.20) mg/dL Est GFR ( Amer) (> 60) Est GFR (Non-Af Amer) (> 60) BUN/Creatinine Ratio (6-26) Glucose (70-105) mg/dL Calculated Osmolality (280-300) Lactic Acid (0.5-2.2) mmol/L Calcium (8.6-10.3) mg/dL Troponin I (< 0.04) ng/mL B-Natriuretic Peptide 892 H (Less than 100) pg/mL
--- NOTE | 2017-10-01 15:35 | Emergency Department Note ---
START Narrative - START START: I examined this patient and my medical decision-making was reviewed with the Resident Physician. I agree with the documented findings, disposition and treatment plan as described except to the extent set forth below. 77-year-old female presents emergency room for left arm achiness. Started earlier this morning. History of stents and coronary artery disease as well as heart valve replacement. Sent in by her materials development engineer. She states it is worse with activity. She was unsure if it was her muscle problems secondary to her fibromyalgia. Slight shortness of breath. She uses a walker and states it was worse with using her walker. We will check cardiac labs. EKG was nondiagnostic. Multiple risk factors.
[2017-10-01] MEDS ORDERED: Furosemide 40 MG/4 ML VIAL IVP ONE (16:20)
[2017-10-01] MEDS ORDERED: Baclofen 10 MG TABLET PO PRN (22:09)
[2017-10-01] MEDS ORDERED: hydrOXYzine pamoate 25 MG CAPSULE PO PRN (22:09)
[2017-10-01] MEDS ORDERED: Naloxone 0.4 MG/ML INJ IVP PRN (22:10)
[2017-10-01] MEDS ORDERED: NON-FORMULARY MEDICATION 1 EACH EACH (Oxygen [Oxygen] 2 L) NS SCH (22:15)
--- NOTE | 2017-10-01 22:22 | Internal Med History&Physical ---
Date of Encounter: 10/01/17 Time of Encounter: 22:21 Internal Medicine - H&P: HPI Chief complaint: shortness of breath Admitted From: Emergency Dept Plans for Post Hospital Care: Home History of present illness: Ms. Chilel is a 77 year old female has a past medical history of hypertension , hyperlipidemia, cirrhosis, COPD, and obese anemia, fibromyalgia, GERD, chronic lower back pain. Patient came to emergency room as she was sent by Dr. Larsen's nurse practitioner. Patient was Evaluated As a Routine Checkup and at That Time It Was Noted That Patient Is Persistently Shortness of Breath. This Was the Reason She Was Sent from Cardiology Office to Emergency Room for Further Evaluation. Emergency Department Basic Labs Were Drawn. Imaging Done. Reason for Admission: chf exacerbation Past Med Surg Social Fam HX - Past Medical History Medical history: atrial fibrillation, cirrhosis, CHF, COPD, coronary artery disease, fibromyalgia, GERD, hyperlipidemia, hypertension, osteoporosis Psychiatric history: anxiety, depression - Past Surgical History Surgical History: heart valve replacement, hysterectomy, orthopedic, other - Social History Smoking Status: Former smoker Alcohol use: none Drug use: none - Family History Mother Living Status: Father Living Status: Internal Medicine - H&P: Meds Oxybutynin Chloride [Ditropan Xl] 10 mg PO DAILY 05/10/17 [History] Aspirin Enteric Coated [Aspirin EC] 81 mg PO DAILY 06/27/17 [History] Amiodarone [Cordarone] 200 mg PO DAILY tablet 07/06/17 [Rx] Baclofen [Lioresal] 10 mg PO TID PRN #10 07/06/17 [Rx] Furosemide [Lasix] 20 mg PO DAILY tablet 07/06/17 [Rx] Atorvastatin [Lipitor] 10 mg PO HS 09/12/17 [History] Metoprolol XL (24 HR) Succ [Toprol Xl] 25 mg PO DAILY 09/12/17 [History] Potassium Chloride [Klor-Con 10] 10 meq PO BID 09/12/17 [History] Cyanocobalamin (Vitamin B-12) [Vitamin B12] 1,000 mcg PO DAILY 10/01/17 [History ] Ferrous Gluconate 324 mg PO BID 10/01/17 [History] HydrOXYzine Pamoate [Vistaril] 50 mg PO Q6H PRN 10/01/17 [History] Melatonin 15 mg PO HS 10/01/17 [History] Omeprazole [PriLOSEC] 20 mg PO DAILY 10/01/17 [History] Oxygen 2 l NS AD 10/01/17 [History] amLODIPine [Norvasc] 5 mg PO QAM 10/01/17 [History] 3 Allergy/AdvReac Type Severity Reaction Status Date / Time pregabalin [From Lyrica] Allergy Mild Confusion Verified 05/10/17 11:21 All Systems PM: A 10-system review of systems was performed and is negative for pertinent findings except as documented above in the HPI. - Constitutional Vitals: Temp Pulse Resp BP Pulse Ox 97.6 F 64 136 130/56 99 10/01/17 21:32 10/01/17 21:32 10/01/17 21:32 10/01/17 21:32 10/01/17 21:32 General appearance: Present: A&O X 3, pleasant, no acute distress, answers questions appropriately - Head Head exam: Present: atraumatic, normocephalic - Eye Eye exam: Present: PERRL, conjuntiva pink, sclera anicteric Pupils: Present: PERRL - Neck Neck exam general surgery: Present: supple, trachea midline. Absent: lymphadenopathy - Respiratory Respiratory exam: Present: CTAB. Absent: accessory muscle use, rales, rhonchi, wheezes - Cardiovascular Cardiovascular exam: Present: RRR, +S1, +S2. Absent: diastolic murmur, gallop, rubs, systolic murmur - GI/Abdominal GI/Abdominal exam: Present: normal bowel sounds, soft, no peritoneal signs. Absent: distended, tenderness - Extremities Exam Extremities exam: Present: warm, radial pulses palpable and symmetrical. Absent : calf tenderness, cyanotic, pedal edema - Neurological Exam Neurological exam: Present: CN II-XII intact, oriented X3, no focal deficits. Absent: pronater drift, facial droop, speech deficit - Skin Skin exam: Present: dry, intact Internal Med - H&P Results - Labs CBC & Chem 7: 10/01/17 14:35 10/01/17 14:35 - Assessment and plan (1) HTN (hypertension) Current Visit: No Status: Chronic Qualifiers: Hypertension type: essential hypertension Qualified Code(s): I10 - Essential (primary) hypertension (2) CKD (chronic kidney disease) Current Visit: No Status: Chronic Qualifiers: Chronic kidney disease stage: stage 3 (moderate) Qualified Code(s): N18.3 - Chronic kidney disease, stage 3 (moderate) (3) Prosthetic aortic valve stenosis Current Visit: No Status: Chronic (4) A-fib Current Visit: No Status: Acute Assessment and plan: New-onset of A. fib. Chadswsc 2 vascular score 4 female he is 0 Plan: Continue Cardizem drip. Continue supportive care. Qualifiers: Atrial fibrillation type: chronic Qualified Code(s): I48.2 - Chronic atrial fibrillation (5) CAD (coronary artery disease) Current Visit: No Status: Chronic Assessment and plan: Presently her coronary disease is stable. No chest pain. we will closely monitor her. Number Qualifiers: Coronary Disease-Associated Artery/Lesion type: [place] artery [place] vs. transplanted heart: [place] heart Associated angina: without angina Qualified Code(s): I25.10 - Atherosclerotic heart disease of [place] coronary artery without angina pectoris (6) DVT prophylaxis Current Visit: No Status: Acute Assessment and plan: SCD Medical decision making: This patient is a moderate to severe risk of worsening in spite of being on appropriate medication due to the underlying comorbid conditions. - Time Spent With Patient Total time spent is greater than 50% in coordination of care (as documented) at patient's floor/unit and/or counseling patient:
[2017-10-02] MEDS ORDERED: *HR* FentaNYL (PF) 100 MCG/2 ML VIAL IVP PRN (01:35)
[2017-10-02 04:42] LABS: Basophils % 0.5 %; Eosinophils # 0.1 K/mcL (0.0-0.6); Eosinophils % 1.4 %; Hematocrit 28.6 % (35.3-44.9); Hemoglobin 8.7 g/dL (11.5-15.4); Immature Granulocytes % 0.5 % (0-4); Lymphocytes % 21.9 %; Mean Corpuscular HGB Conc 30.4 g/dL (31.6-35.5); Mean Corpuscular Hemoglobin 28.1 pg (28.0-33.3); Mean Corpuscular Volume 92.3 fL (83.0-100.0); Mean Platelet Volume 10.4 fL (9.4-12.4); Monocytes # 0.4 K/mcL (0.0-1.3); Monocytes % 9.4 %; Neutrophils # 2.9 K/mcL (1.6-8.9); Platelet Count 126 K/mcL (140-400); Red Cell Distribution Width 19.1 % (11.5-14.5); Segmented Neutrophils % 66.3 %
[2017-10-02 05:06] LABS: Alanine Aminotransferase 9 Units/L (7-52); Albumin 3.5 g/dL (3.5-5.7); Albumin/Globulin Ratio 1.3 (1.1-2.2); Alkaline Phosphatase 53 Units/L (34-104); Aspartate Amino Transferase 19 Units/L (13-39); BUN/Creatinine Ratio 13 (6-26); Bilirubin,Total 0.7 mg/dL (0.3-1.0); Blood Urea Nitrogen 13 mg/dL (8-23); Carbon Dioxide 28 mEq/L (23-29); Chloride 105 mEq/L (98-107); Chol/HDL Ratio 2.7 (0-4.9); Cholesterol 128 mg/dL (< 200); Globulin 2.7 g/dL (2.4-3.5); Glucose 105 mg/dL (70-105); HDL Cholesterol 47 mg/dL (40-59); LDL Cholesterol,Calculated 58 mg/dL (0-99); Magnesium 1.7 mg/dL (1.6-2.6); Osmolality,Calculated 296 (280-300); Phosphorous 3.7 mg/dL (2.7-4.5); Potassium 2.8 mEq/L (3.5-5.1); Sodium 143 mEq/L (136-145); Total Protein 6.2 g/dL (6.4-8.9); Triglycerides 116 mg/dL (< 150); eGFR For African Americans > 60 (> 60); eGFR For Non-African Americans 56 (> 60)
[2017-10-02] MEDS ORDERED: Potassium Chloride 20 MEQ, Lidocaine 1% 2 ML in D5% in Water 250 ML IVPB ONE (08:46)
--- NOTE | 2017-10-02 08:51 | Internal Med Progress Note ---
Date of Encounter: 10/02/17 Time of Encounter: 08:49 - Assessment and plan (1) Acute exacerbation of CHF (congestive heart failure) Current Visit: Yes Status: Acute Assessment and plan: We will continue to diurese the patient with IV Lasix 40 mg twice a day. We will supplement potassium as potassium is 2.8 this morning. We will continue beta tiffanie. Continue nebs. O2 support as needed. Qualifiers: Heart failure type: combined systolic and diastolic Qualified Code(s): I50.43 - Acute on chronic combined systolic (congestive) and diastolic ( congestive) heart failure (2) HTN (hypertension) Current Visit: No Status: Chronic Assessment and plan: Blood pressure stable. Continue Norvasc, Toprol X Qualifiers: Hypertension type: essential hypertension Qualified Code(s): I10 - Essential (primary) hypertension (3) CAD (coronary artery disease) Current Visit: No Status: Chronic Assessment and plan: Stable. Continue home cardiac meds. Patient is on aspirin, statin, beta tiffanie. Qualifiers: Coronary Disease-Associated Artery/Lesion type: [place] artery [place] vs. transplanted heart: [place] heart Associated angina: without angina Qualified Code(s): I25.10 - Atherosclerotic heart disease of [place] coronary artery without angina pectoris (4) CKD (chronic kidney disease) Current Visit: No Status: Chronic Assessment and plan: Stable. Qualifiers: Chronic kidney disease stage: stage 3 (moderate) Qualified Code(s): N18.3 - Chronic kidney disease, stage 3 (moderate) (5) Prosthetic aortic valve stenosis Current Visit: No Status: Chronic Assessment and plan: The patient has a severe stenosis of her bioprosthetic aortic valve seen on echo done last month. She follows up with cardiology. (6) A-fib Current Visit: No Status: Acute Assessment and plan: Patient has history of A. fib for which she follows up with cardiology. Rate controlled. Continue with amiodarone. Continue with beta tiffanie. Not on anticoagulation due to anemia and history of GI bleed based on previous hiv counselor's notes. Continue with aspirin. Qualifiers: Atrial fibrillation type: chronic Qualified Code(s): I48.2 - Chronic atrial fibrillation (7) DVT prophylaxis Current Visit: No Status: Acute Assessment and plan: heparin SQ - Time Spent With Patient Total time spent is greater than 50% in coordination of care (as documented) at patient's floor/unit and/or counseling patient: - Subjective Interval history: Patient was seen and examined. No acute events overnight. Afebrile. Admitted with CHF exacerbation. Remains on 2 L nasal cannula oxygen. - Constitutional Vitals: Temp Pulse Resp BP Pulse Ox 98.4 F 70 20 147/69 95 10/02/17 08:07 10/02/17 08:07 10/02/17 08:07 10/02/17 08:07 10/02/17 08:07 General appearance: Present: A&O X 3, pleasant, no acute distress, answers questions appropriately Exam: GEN: NAD CVS: RRR. S1, S2, No m/r/g RESP: Diminished with bibasilar crackles ABD: Soft, NT, ND, +BS EXT: No edema. 2+ DP. No rashes NEURO: Nonfocal Internal Medicine: Result - Labs CBC & Chem 7: 10/02/17 04:09 10/02/17 04:09 Labs: Short CBC 10/02/17 Range/Units 04:09 WBC 4.4 (4.3-11.1) K/mcL Hgb 8.7 L (11.5-15.4) g/dL Hct 28.6 L (35.3-44.9) % Plt Count 126 L (140-400) K/mcL Neutrophils # 2.9 (1.6-8.9) K/mcL BMP 10/02/17 04:09 Sodium 143 Potassium 2.8 L Chloride 105 Carbon Dioxide 28 BUN 13 Creatinine 0.97 Glucose 105 Calcium 9.0 Cardiac Enzymes 10/01/17 10/02/17 Range/Units 22:36 04:09 Troponin I < 0.03 < 0.03 (< 0.04) ng/mL Liver Function 10/02/17 Range/Units 04:09 Total Bilirubin 0.7 (0.3-1.0) mg/dL AST 19 (13-39) Units/L ALT 9 (7-52) Units/L Alkaline Phosphatase 53 (34-104) Units/L Albumin 3.5 (3.5-5.7) g/dL - VTE Documentation of Mechanical Device: Intermittent pneumatic compression device Consult Discharge Plan - Plan Referrals: Titi Garcia DO [Primary Care Provider] -
[2017-10-02] MEDS ORDERED: Ipratropium/Albuterol Neb 3 ML IH PRN (08:52)
[2017-10-02] MEDS: Aspirin Enteric Coated 81 MG Tablet PO SCH (09:31)
[2017-10-02] MEDS: *HR* Amiodarone 200 MG TABLET PO SCH (09:31)
[2017-10-02] MEDS: Cyanocobalamin (B-12) 1,000 MCG TABLET PO SCH (09:31)
[2017-10-02] MEDS: amLODIPine 5 MG TABLET PO SCH (09:31)
[2017-10-02] MEDS: Metoprolol XL (24 HR) Succ 25 MG TAB.ER.24H PO SCH (09:32)
[2017-10-02] MEDS: Furosemide 40 MG/4 ML VIAL IVP SCH ×2 (09:32→20:07)
--- NOTE | 2017-10-02 11:06 | Cardiology Consult Note ---
<Era Nathan Myles - Last Filed: 10/02/17 11:01> Date of Encounter: 10/02/17 Time of Encounter: 10:50 Assessment and Plan (1) Prosthetic aortic valve stenosis Current Visit: Yes Status: Chronic Severe bioprosthetic AV stenosis--outpatient referral to [facility] pending. Presents with CHF symptoms--orthopnea, PND, weight gain, and severe shortness of breath. EF 55-60% Agree with diuresis. Strict I&O's, daily weights, Na/fluid restriction diet. (2) CAD (coronary artery disease) Current Visit: Yes Status: Chronic Reports left arm pain with exertion. Troponin negative x3. Recent TTE shows normal LVEF, normal wall motion. ECG shows LBBB--known. [facility] 2014--patent LAD,RCA stents; otherwise non-obstructive CAD Pain free upon exam. Consider ischemic evaluation prior to discharge vs. outpatient if H/H, platelets remain stable. Qualifiers: Coronary Disease-Associated Artery/Lesion type: [place] artery [place] vs. transplanted heart: samish heart Associated angina: with unspecified angina Qualified Code(s): I25.119 - Atherosclerotic heart disease of sam[place] coronary artery with unspecified angina pectoris (3) Hypokalemia Current Visit: Yes Status: Acute K 2.8--rider ordered. (4) PAF (paroxysmal atrial fibrillation) Current Visit: Yes Status: Acute Hx of PAF, continue current CV medications. Has not been anticoagulated due to recent GI bleed. Discussion w patient/family: The assessment and plan as outlined above was discussed with the patient and/or family members who expressed understanding and agreement. All questions were answered. Thank you for involving us in the care of your patient. Please call with any questions. History of Present Illness Consult date: 09/19/17 Requesting physician: Minh Schumacher Consult reason: Shortness of breath Chief complaint: shortness of breath History of present illness: Ms. Chilel is a 77 year old female with PMHx significant for CAD s/p PCI, AI s /p bioprosthetic AVR, and PAF who presented to the ED after recommendations by outpatient Cardiology. She reported 8lb weight gain in the past week and increased utilization of prn oxygen. Reports orthopnea, PND, and shortness of breath with minimal exertion. Reports left arm pain that worsens with exertion. Recent hospitalization for similar symptoms, found to have severe bioprosthetic AV stenosis--outpt referral to [facility] pending. Prior CV testing: TTE 09/12/17: LVEF 55-60%, moderate LVH, severe bioprosthetic [facility] 2014: patent mid LAD stent, patent p-m RCA stent; otherwise non- obstructive CAD Past Med Surg Social Fam HX - Past Medical History Attestation: Yes The following information was validated with the patient. Source: patient Medical history: atrial fibrillation, cirrhosis, CHF, COPD, coronary artery disease, fibromyalgia, GERD, hyperlipidemia, hypertension, osteoporosis Psychiatric history: anxiety, depression - Past Surgical History Surgical History: heart valve replacement, hysterectomy, orthopedic, other - Social History Smoking Status: Former smoker Smokeless Tobacco Status: No Alcohol use: none Drug use: none - Family History Mother Living Status: Father Living Status: Medications and Allergies Oxybutynin Chloride [Ditropan Xl] 10 mg PO DAILY 05/10/17 [History] Aspirin Enteric Coated [Aspirin EC] 81 mg PO DAILY 06/27/17 [History] Amiodarone [Cordarone] 200 mg PO DAILY tablet 07/06/17 [Rx] Baclofen [Lioresal] 10 mg PO TID PRN #10 07/06/17 [Rx] Furosemide [Lasix] 20 mg PO DAILY tablet 07/06/17 [Rx] Atorvastatin [Lipitor] 10 mg PO HS 09/12/17 [History] Metoprolol XL (24 HR) Succ [Toprol Xl] 25 mg PO DAILY 09/12/17 [History] Potassium Chloride [Klor-Con 10] 10 meq PO BID 09/12/17 [History] Cyanocobalamin (Vitamin B-12) [Vitamin B12] 1,000 mcg PO DAILY 10/01/17 [History ] Ferrous Gluconate 324 mg PO BID 10/01/17 [History] HydrOXYzine Pamoate [Vistaril] 50 mg PO Q6H PRN 10/01/17 [History] Melatonin 15 mg PO HS 10/01/17 [History] Omeprazole [PriLOSEC] 20 mg PO DAILY 10/01/17 [History] Oxygen 2 l NS AD 10/01/17 [History] amLODIPine [Norvasc] 5 mg PO QAM 10/01/17 [History] 3 Allergy/AdvReac Type Severity Reaction Status Date / Time pregabalin [From Lyrica] Allergy Mild Confusion Verified 05/10/17 11:21 All Systems Review: The remainder of the systems were reviewed and are negative - Cardiovascular Cardiovascular: as per HPI Physical Examination Vital Signs, Last 4 Hours Temp Pulse Resp BP Pulse Ox 10/02/17 08:07 98.4 F 70 20 147/69 95 General: Conversant, Other (conversational dyspnea) HEENT: Atraumatic, Normocephaly Cardiac: Reg Rate and Rhythm, Normal S1 and S2, Other (3/6 systolic murmur) Lungs: Normal Breath Sounds Neuro: Alert and responsive Abdomen: Soft Skin: No rashes noted on visualized skin Musculoskeletal: No Chest Wall Tenderness Extremities: No Edema, Normal Pulses Results 10/02/17 04:09 10/02/17 04:09 Lab Results 10/01/17 10/02/17 10/02/17 22:36 04:09 04:09 WBC 4.4 Hgb 8.7 L Hct 28.6 L Plt Count 126 L Sodium 143 Potassium 2.8 L Chloride 105 Carbon Dioxide 28 BUN 13 Creatinine 0.97 Glucose 105 Calcium 9.0 Magnesium 1.7 Total Bilirubin 0.7 AST 19 ALT 9 Alkaline Phosphatase 53 Troponin I < 0.03 B-Natriuretic Peptide 10/02/17 10/02/17 10/02/17 04:09 04:09 10:07 WBC Hgb Hct Plt Count Sodium Potassium Chloride Carbon Dioxide BUN Creatinine Glucose Calcium Magnesium Total Bilirubin AST ALT Alkaline Phosphatase Troponin I < 0.03 < 0.03 B-Natriuretic Peptide 883 H Active Medications Albuterol/Ipratropium (Duoneb) 3 ml IH [id number] PRN PRN Reason: Shortness Of Breath/Wheezing Stop: 04/03/18 08:53 Amiodarone HCl (Cordarone) 200 mg PO DAILY [facility] Stop: 04/03/18 09:01 Last Admin: 10/02/17 09:31 Dose: 200 mg Amlodipine Besylate (Norvasc) 5 mg PO QAM CHRIS PRN Reason: Protocol Stop: 04/03/18 09:01 Last Admin: 10/02/17 09:31 Dose: 5 mg Aspirin (Aspirin Ec) 81 mg PO DAILY CHRIS Stop: 04/03/18 09:01 Last Admin: 10/02/17 09:31 Dose: 81 mg Atorvastatin Calcium (Lipitor) 10 mg PO HS [facility] Stop: 04/03/18 21:01 Baclofen (Lioresal) 10 mg PO TID PRN PRN Reason: Muscle Spasm Stop: 04/02/18 22:10 Cyanocobalamin (Vitamin B12) 1,000 mcg PO DAILY CHRIS Stop: 04/03/18 09:01 Last Admin: 10/02/17 09:31 Dose: 1,000 mcg Fentanyl Citrate (Fentanyl (Pf)) 25 mcg IVP Q4H PRN PRN Reason: Severe Pain Stop: 04/03/18 01:36 Last Admin: 10/02/17 01:59 Dose: 25 mcg Furosemide (Lasix) 40 mg IVP BID [facility] Stop: 04/03/18 09:01 Last Admin: 10/02/17 09:32 Dose: 40 mg Heparin Sodium (Porcine) (Heparin) 5,000 unit SQ Q8HCO [facility] Stop: 04/03/18 14:01 Hydroxyzine Pamoate (Hydroxyzine Pamoate) 50 mg PO Q6H PRN PRN Reason: Anxiety Melatonin (Melatonin) 9 mg PO HS [facility] Stop: 04/03/18 21:01 Metoprolol Succinate (Toprol Xl) 25 mg PO DAILY [facility] Stop: 04/03/18 09:01 Last Admin: 10/02/17 09:32 Dose: 25 mg Naloxone HCl (Narcan) 0.4 mg IVP Q2MIN PRN PRN Reason: SEE COMMENTS Stop: 04/02/18 22:11 Omeprazole (Prilosec) 20 mg PO DAILY CHRIS PRN Reason: Protocol Stop: 04/03/18 09:01 Last Admin: 10/02/17 09:31 Dose: 20 mg Oxybutynin Chloride (Ditropan) 5 mg PO BID [facility] Stop: 04/03/18 09:01 Last Admin: 10/02/17 09:31 Dose: 5 mg Potassium Chloride (Potassium Chloride) 10 meq PO BID [facility] Stop: 04/03/18 09:01 Last Admin: 10/02/17 09:31 Dose: 10 meq - Imaging and Cardiology Echo: report reviewed Cardiac cath: report reviewed - EKG Interpretation EKG results cardiology: personally reviewed Consult Discharge Plan - Plan Referrals: Titi Garcia DO [Primary Care Provider] - <Prasanth Broussard - Last Filed: 10/02/17 17:00> Date of Encounter: 10/02/17 - Attending Attestation I have personally performed a face to face evaluation on this patient. I have reviewed and agree with the care plan. History and Exam by me shows: CC: shortness of breath Pt presented to our office with complaint of progressive shortness of breath, eight pound weight gain and now conversational dyspnea. She has been unable to sleep flat for four nights. She has known critical aortic stenosis, of a bioprosthetic aortic valve placed five years ago. She has had precordial chest pain, severe, 8/10 at most severe, begins if continues to walk when becomes short of breath. She reports chest pain similar to symptoms before PCI LAD 2014. She is now pain free, resting and breathing comfortably. PMH: reviewed PE: pt seen and examined, agree with exceptions cardiac murmur is harsh, loud and radiates throughout the precordium. Breath sounds are decreased. IMP: 1. Acute on chronic diastolic heart failure, slowly responding to IV diuresis. 2. Critical by surface echo, will need RT and LHC to determine actual gradients when respiratory status allows her to stay supine 3. Chest pain; suggestive of anginal pain, will need LHC to eval CAD, stent patency RCA and mid LAD 4. Hypertension: adequate control on current meds. Assessment and Plan Discussion w patient/family: The assessment and plan as outlined above was discussed with the patient and/or family members who expressed understanding and agreement. All questions were answered. Thank you for involving us in the care of your patient. Please call with any questions. History of Present Illness History of present illness: Ms. Chilel is a 77 year old female All Systems Review: The remainder of the systems were reviewed and are negative Physical Examination Vital Signs, Last 4 Hours Temp Pulse Resp BP Pulse Ox 10/02/17 15:35 98.3 F 63 18 128/71 98 Results 10/02/17 04:09 10/02/17 04:09 Lab Results 10/01/17 10/02/17 10/02/17 22:36 04:09 04:09 WBC 4.4 Hgb 8.7 L Hct 28.6 L Plt Count 126 L Sodium 143 Potassium 2.8 L Chloride 105 Carbon Dioxide 28 BUN 13 Creatinine 0.97 Glucose 105 Calcium 9.0 Magnesium 1.7 Total Bilirubin 0.7 AST 19 ALT 9 Alkaline Phosphatase 53 Troponin I < 0.03 B-Natriuretic Peptide 10/02/17 10/02/17 10/02/17 04:09 04:09 10:07 WBC Hgb Hct Plt Count Sodium Potassium Chloride Carbon Dioxide BUN Creatinine Glucose Calcium Magnesium Total Bilirubin AST ALT Alkaline Phosphatase Troponin I < 0.03 < 0.03 B-Natriuretic Peptide 883 H 10/02/17 14:27 WBC Hgb Hct Plt Count Sodium Potassium Chloride Carbon Dioxide BUN Creatinine Glucose Calcium Magnesium Total Bilirubin AST ALT Alkaline Phosphatase Troponin I 0.03 B-Natriuretic Peptide
[2017-10-02] MEDS: *HR* Heparin 5,000 UNIT/ML VIAL SQ SCH ×2 (13:54→20:07)
[2017-10-02] MEDS ORDERED: Melatonin 3 MG TABLET PO SCH (21:00)
[2017-10-03 04:37] LABS: Basophils % 0.2 %; Eosinophils # 0.1 K/mcL (0.0-0.6); Eosinophils % 1.2 %; Hematocrit 29.2 % (35.3-44.9); Hemoglobin 8.7 g/dL (11.5-15.4); Immature Granulocytes % 0.5 % (0-4); Lymphocytes # 1.2 K/mcL (0.6-4.6); Lymphocytes % 29.4 %; Mean Corpuscular HGB Conc 29.8 g/dL (31.6-35.5); Mean Corpuscular Hemoglobin 27.4 pg (28.0-33.3); Mean Corpuscular Volume 91.8 fL (83.0-100.0); Mean Platelet Volume 10.2 fL (9.4-12.4); Monocytes # 0.5 K/mcL (0.0-1.3); Monocytes % 11.3 %; Neutrophils # 2.3 K/mcL (1.6-8.9); Platelet Count 134 K/mcL (140-400); Red Blood Count 3.18 M/mcL (3.82-4.97); Red Cell Distribution Width 18.9 % (11.5-14.5); Segmented Neutrophils % 57.4 %
[2017-10-03] MEDS: *HR* Heparin 5,000 UNIT/ML VIAL SQ SCH (04:50)
[2017-10-03 05:03] LABS: BUN/Creatinine Ratio 14 (6-26); Blood Urea Nitrogen 13 mg/dL (8-23); Calcium 9.1 mg/dL (8.6-10.3); Carbon Dioxide 30 mEq/L (23-29); Chloride 104 mEq/L (98-107); Glucose 119 mg/dL (70-105); Magnesium 1.9 mg/dL (1.6-2.6); Osmolality,Calculated 299 (280-300); Potassium 3.3 mEq/L (3.5-5.1); Sodium 144 mEq/L (136-145); eGFR For African Americans > 60 (> 60); eGFR For Non-African Americans 56 (> 60)
[2017-10-03] MEDS ORDERED: Magnesium Oxide 400 MG TABLET PO ONE (08:51)
--- NOTE | 2017-10-03 08:55 | Internal Med Progress Note ---
Date of Encounter: 10/03/17 Time of Encounter: 08:53 - Assessment and plan (1) Acute exacerbation of CHF (congestive heart failure) Current Visit: Yes Status: Acute Assessment and plan: Continue to diurese the patient with IV Lasix 40 mg twice a day. Good UOP. About 6Kg down since admit. We will supplement potassium as potassium is 3.3 this morning. We will continue beta tiffanie. Continue nebs. O2 support as needed. Appreciate cardiology's help Qualifiers: Heart failure type: combined systolic and diastolic Qualified Code(s): I50.43 - Acute on chronic combined systolic (congestive) and diastolic ( congestive) heart failure (2) HTN (hypertension) Current Visit: No Status: Chronic Assessment and plan: Blood pressure stable. Continue Norvasc, Toprol X Qualifiers: Hypertension type: essential hypertension Qualified Code(s): I10 - Essential (primary) hypertension (3) CAD (coronary artery disease) Current Visit: Yes Status: Chronic Assessment and plan: Stable. Continue home cardiac meds. Patient is on aspirin, statin, beta tiffanie. Qualifiers: Coronary Disease-Associated Artery/Lesion type: [place] artery [place] vs. transplanted heart: [place] heart Associated angina: with unspecified angina Qualified Code(s): I25.119 - Atherosclerotic heart disease of [place] coronary artery with unspecified angina pectoris (4) CKD (chronic kidney disease) Current Visit: No Status: Chronic Assessment and plan: Stable. Qualifiers: Chronic kidney disease stage: stage 3 (moderate) Qualified Code(s): N18.3 - Chronic kidney disease, stage 3 (moderate) (5) Prosthetic aortic valve stenosis Current Visit: Yes Status: Chronic Assessment and plan: The patient has a severe stenosis of her bioprosthetic aortic valve seen on echo done last month. She follows up with cardiology. outpatient referral to [facility] per cardiology (6) A-fib Current Visit: No Status: Acute Assessment and plan: Patient has history of A. fib for which she follows up with cardiology. Rate controlled. Continue with amiodarone. Continue with beta tiffanie. 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 Continue with aspirin. Qualifiers: Atrial fibrillation type: chronic Qualified Code(s): I48.2 - Chronic atrial fibrillation (7) DVT prophylaxis Current Visit: No Status: Acute Assessment and plan: heparin SQ - Time Spent With Patient Total time spent is greater than 50% in coordination of care (as documented) at patient's floor/unit and/or counseling patient: - Subjective Interval history: Patient was seen and examined. No acute events overnight. Diuresing well. Currently on 1L O2. Seen by cardio. Afebrile. Admitted with CHF exacerbation. - Constitutional Vitals: Temp Pulse Resp BP Pulse Ox 98.2 F 63 17 158/68 93 10/03/17 07:32 10/03/17 07:32 10/03/17 07:32 10/03/17 07:32 10/03/17 07:32 General appearance: Present: A&O X 3, pleasant, no acute distress, answers questions appropriately Exam: GEN: NAD CVS: RRR. S1, S2, No m/r/g RESP: Diminished with bibasilar crackles ABD: Soft, NT, ND, +BS EXT: No edema. 2+ DP. No rashes NEURO: Nonfocal Internal Medicine: Result - Labs CBC & Chem 7: 10/03/17 04:01 10/03/17 04:01 Labs: Short CBC 10/03/17 Range/Units 04:01 WBC 4.1 L (4.3-11.1) K/mcL Hgb 8.7 L (11.5-15.4) g/dL Hct 29.2 L (35.3-44.9) % Plt Count 134 L (140-400) K/mcL Neutrophils # 2.3 (1.6-8.9) K/mcL BMP 10/03/17 04:01 Sodium 144 Potassium 3.3 L Chloride 104 Carbon Dioxide 30 H BUN 13 Creatinine 0.96 Glucose 119 H Calcium 9.1 Cardiac Enzymes 10/02/17 10/02/17 Range/Units 10:07 14:27 Troponin I < 0.03 0.03 (< 0.04) ng/mL - VTE Documentation of Mechanical Device: Intermittent pneumatic compression device Consult Discharge Plan - Plan Referrals: Titi Garcia DO [Primary Care Provider] -
[2017-10-03] MEDS: Furosemide 40 MG/4 ML VIAL IVP SCH (09:29)
[2017-10-03] MEDS: Cyanocobalamin (B-12) 1,000 MCG TABLET PO SCH (09:30)
[2017-10-03] MEDS: amLODIPine 5 MG TABLET PO SCH (09:30)
[2017-10-03] MEDS: Metoprolol XL (24 HR) Succ 25 MG TAB.ER.24H PO SCH (09:30)
[2017-10-03] MEDS: Aspirin Enteric Coated 81 MG Tablet PO SCH (09:30)
[2017-10-03] MEDS: *HR* Amiodarone 200 MG TABLET PO SCH (09:30)
--- NOTE | 2017-10-03 10:03 | Discharge Summary ---
- NOTES TO OUTPATIENT PROVIDER Notes to Outpatient Provider: Lasix dose was increased from 20 mg to 40 mg daily Orders not resulted at time of discharge: Pending orders 10/02/17 14:23 ECG 12 lead ECG [ECG] Stat 10/04/17 04:00 BMP [Basic Metabolic Panel] AM 0400 Complete Blood Count [HEME] AM 0400 Magnesium AM 0400 Date of Encounter: 10/03/17 Time of Encounter: 10:01 - Discharge Diagnosis (1) Acute exacerbation of CHF (congestive heart failure) Priority: Primary Status: Acute Qualifiers: Heart failure type: combined systolic and diastolic Qualified Code(s): I50.43 - Acute on chronic combined systolic (congestive) and diastolic ( congestive) heart failure (2) HTN (hypertension) Priority: Secondary Status: Chronic Qualifiers: Hypertension type: essential hypertension Qualified Code(s): I10 - Essential (primary) hypertension (3) CAD (coronary artery disease) Priority: Secondary Status: Chronic Qualifiers: Coronary Disease-Associated Artery/Lesion type: [place] artery [place] vs. transplanted heart: [place] heart Associated angina: with unspecified angina Qualified Code(s): I25.119 - Atherosclerotic heart disease of [place] coronary artery with unspecified angina pectoris (4) CKD (chronic kidney disease) Priority: Secondary Status: Chronic Qualifiers: Chronic kidney disease stage: stage 3 (moderate) Qualified Code(s): N18.3 - Chronic kidney disease, stage 3 (moderate) (5) Prosthetic aortic valve stenosis Priority: Secondary Status: Chronic (6) A-fib Priority: Secondary Status: Acute Qualifiers: Atrial fibrillation type: chronic Qualified Code(s): I48.2 - Chronic atrial fibrillation Hospital course: Ms. Chilel is a 77 year old female with a past medical history of hypertension , hyperlipidemia, cirrhosis, COPD, and obese anemia, fibromyalgia, GERD, chronic lower back pain came to emergency room as she was sent by Dr. Larsen's nurse practitioner. Patient was noted to be short of breath with signs and symptoms of CHF. BNP 892 on admission. Normal trops. CXR with fluid overload and CHF picture. She was admitted and aggressively diuresed. She was completely weaned off O2. Cardiology followed and agreed with diuresis. An echo was done last month showed known severe stenosis of bioprosthetic aortic valve. She is being referred to [facility] by cardiology in the outpatient setting. EF was 55-60% on that echo. She was offered to stay another day for IV diuresis but was wanting to get discharged as she has things to take care of on day of discharge and the following day. I had no objections to her discharge as she seemed clinically stable and was diuresed well. I increased lasix at discharge to 40 mg daily from 20 mg daily. She was discharged in a stable condition on 10/03. - Time Spent with Patient Total time spent providing and/or coordinating discharge services: Greater than 30 minutes - Discharge Medications Prescriptions: Furosemide [Lasix] 40 mg PO DAILY #30 tablet Home Medications: Oxybutynin Chloride [Ditropan Xl] 10 mg PO DAILY 05/10/17 [History] Aspirin Enteric Coated [Aspirin EC] 81 mg PO DAILY 06/27/17 [History] Amiodarone [Cordarone] 200 mg PO DAILY tablet 07/06/17 [Rx] Baclofen [Lioresal] 10 mg PO TID PRN #10 07/06/17 [Rx] Furosemide [Lasix] 20 mg PO DAILY tablet 07/06/17 [Rx] Atorvastatin [Lipitor] 10 mg PO HS 09/12/17 [History] Metoprolol XL (24 HR) Succ [Toprol Xl] 25 mg PO DAILY 09/12/17 [History] Potassium Chloride [Klor-Con 10] 10 meq PO BID 09/12/17 [History] Cyanocobalamin (Vitamin B-12) [Vitamin B12] 1,000 mcg PO DAILY 10/01/17 [History ] Ferrous Gluconate 324 mg PO BID 10/01/17 [History] HydrOXYzine Pamoate [Vistaril] 50 mg PO Q6H PRN 10/01/17 [History] Melatonin 15 mg PO HS 10/01/17 [History] Omeprazole [PriLOSEC] 20 mg PO DAILY 10/01/17 [History] Oxygen 2 l NS AD 10/01/17 [History] amLODIPine [Norvasc] 5 mg PO QAM 10/01/17 [History] Furosemide [Lasix] 40 mg PO DAILY #30 tablet 10/03/17 [Rx] Allergies/Adverse Reactions: 3 Allergy/AdvReac Type Severity Reaction Status Date / Time pregabalin [From Lyrica] Allergy Mild Confusion Verified 05/10/17 11:21 Date of admission: 10/01/17 22:10 Primary care physician: Titi Garcia DO - Constitutional Vitals: Temp Pulse Resp BP Pulse Ox 98.2 F 63 17 158/68 93 10/03/17 07:32 10/03/17 07:32 10/03/17 07:32 10/03/17 07:32 10/03/17 07:32 General appearance: Present: A&O X 3, pleasant, no acute distress, answers questions appropriately Exam: GEN: NAD CVS: RRR. S1, S2, No m/r/g RESP: Diminished with bibasilar crackles ABD: Soft, NT, ND, +BS EXT: No edema. 2+ DP. No rashes NEURO: Nonfocal - Patient Status Disposition: Home, Self-Care Condition: Fair Overall status at discharge: patient is progressing back to baseline - Discharge Instructions Instructions: Furosemide (By mouth), Heart Failure (DC) Follow Up With: Titi Garcia DO [Primary Care Provider] - (WEB REQUEST SENT ON 10/03. IF YOUR PCP OFFIC DOES NOT CALL YOU BY Wednesday PLEASE CALL TO GET AN APPOINTMENT) Everton Larsen DO [Partnered Physician] - (OFFICE WILL CALL YOU WITH AN APPOINTMENT DATE AND TIME) Additional Instructions: follow up with your bee breeder within 2 weeks I increased your lasix dose to 40 mg daily - Diet and Activity Activity: increase activity as tolerated Diet: low salt diet - VTE Documentation of Mechanical Device: Intermittent pneumatic compression device
[2017-10-03 11:37] VITALS: BP 114/68
--- NOTE | 2017-10-03 12:21 | Event Note ---
Date of Encounter: 10/03/17 Time of Encounter: 12:00 - Cardiology Event Note Patient has been discharged by primary service. Patient reports she is back to her baseline weight/breathing and feels great today, she wants to go home. Discussed with Dr. Broussard, will coordinate ischemic evaluation as outpatient. Outpatient referral to [facility] pending.
--- NOTE | 2017-10-08 08:41 | Electrocardiograph Report ---
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
--- NOTE | 2017-10-08 11:42 | Electrocardiograph Report ---
[place] [id number] Test Date: 2017-10-02 Pat Name: Hermelinda Chilel Department: 112 Room: 2A24 Gender: F Rn International: RAJIV : 1940 Requested By: Marcin Chand Order Number: [id number] Reading MD: Everton Larsen Measurements Intervals [place] Rate: 61 P: 48 MD: 180 QRS: -6 QRSD: 151 T: 138 QT: 499 QTc: 503 Interpretive Statements SINUS RHYTHM LEFT BUNDLE BRANCH BLOCK Electronically Signed On 10-08-2017 11:40:29 EDT by Everton Larsen
== END 2017-10-03 14:20 | disposition home or self-care (01) | DRG 291 ==
LOC: EMEROO 14:01 → 2ANU 14:01
PROVIDERS: ADMIT Internal Medicine; ATTEND Internal Medicine

== ENCOUNTER 2017-11-21 00:06 | Observation (INO) ==
--- NOTE | 2017-11-21 01:01 | Emergency Department Note ---
Disposition Clinical Impression: Pancytopenia Acute exacerbation of congestive heart failure Qualifiers: Heart failure type: diastolic Qualified Code(s): I50.33 - Acute on chronic diastolic (congestive) heart failure Disposition: Admitted As Inpatient Condition: Good Chest Pain HPI - General Chief Complaint: ED Chest Pain Stated Complaint: Chest Pain Time Seen by Provider: 11/21/17 00:19 Source: patient Mode of arrival: private vehicle Limitations: no limitations Vital Signs Reviewed: Yes Nursing Notes Reviewed: Yes - History of Present Illness HPI Narrative: 77-year-old female with past medical history congestive heart failure, prior aortic valve replacement, cirrhosis, chronic kidney disease who presents to the ER due to chest pain shortness of breath and lower shimmy swelling. Family reports intermittent chest pain for one week. Has noticed a 4 pound weight gain over the last few days. She has been seen twice in another facility receiving IV Lasix for 2 days. Also states they increased her Lasix from 40 mg daily to 40 mg twice daily. Reports intermittent right-sided sharp chest pain. She has had some shortness of breath without cough. States her lower extremities.. No nausea vomiting or diarrhea. No other complaints. Pt complaint: chest pain Onset (ago): day(s) Duration: intermittent Onset: during rest Pain Location: right chest Severity: moderate Severity scale (1-10): 8 Pain Radiation: neck Improves with: nothing Worsens with: nothing Associated symptoms: Reports: dyspnea. Denies: nausea, vomiting, diaphoresis Treatments prior to arrival chest pain: other - Related Data Home Medications Medication Instructions Recorded Confirmed Amiodarone [Cordarone] 200 mg PO DAILY 11/21/17 11/21/17 Aspirin 81 mg PO DAILY 11/21/17 11/21/17 Atorvastatin [Lipitor] 10 mg PO HS 11/21/17 11/21/17 Baclofen [Lioresal] 10 mg PO TID PRN 11/21/17 11/21/17 Cyanocobalamin (Vitamin B-12) 1,000 mcg PO DAILY 11/21/17 11/21/17 [Vitamin B-12] DULoxetine [Cymbalta] 60 mg PO BID 11/21/17 11/21/17 Ferrous Gluconate 324 mg PO BID 11/21/17 11/21/17 Furosemide [Lasix] 40 mg PO BID 11/21/17 11/21/17 HydrOXYzine 50 mg PO 3-4XD PRN 11/21/17 11/21/17 Ibuprofen [Ibu] 400 mg PO PRN PRN 11/21/17 11/21/17 Melatonin 5 mg PO TID 11/21/17 11/21/17 Metoprolol [Lopressor] 25 mg PO DAILY 11/21/17 11/21/17 Omeprazole [PriLOSEC] 20 mg PO DAILY 11/21/17 11/21/17 Oxybutynin [Ditropan] 10 mg PO DAILY 11/21/17 11/21/17 Potassium Chloride [K-Tab ER] 20 meq PO BID 11/21/17 11/21/17 amLODIPine [Norvasc] 5 mg PO DAILY 11/21/17 11/21/17 traZODone [TraZODone] 50 mg PO HS 11/21/17 11/21/17 Allergies Allergy/AdvReac Type Severity Reaction Status Date / Time pregabalin [From Lyrica] Allergy Mild Confusion Verified 05/10/17 11:21 Review of Systems: As Per HPI Chest Pain PMH - Past Medical History Medical history: Reports: atrial fibrillation, cirrhosis, CHF, COPD, coronary artery disease, fibromyalgia, GERD, hyperlipidemia, hypertension, osteoporosis Surgical history: Reports: heart valve replacement, hysterectomy, orthopedic, other Psychiatric history: Reports: anxiety, depression - Social History Smoking Status: Former smoker Alcohol use: Reports: none Drug use: Reports: none Physical Exam - General Limitations: no limitations General appearance: alert, in no apparent distress - Head Head exam: atraumatic, normocephalic - Eye Eye exam: Present: normal appearance - ENT ENT exam: normal exam - Neck Neck exam: Present: normal inspection - Chest Chest inspection: Present: normal inspection, symmetric chest wall rise - Respiratory Respiratory exam: Present: other (Diminished breath sounds with bibasilar crackles) - Cardiovascular Cardiovascular exam: Present: regular rate, normal rhythm, normal heart sounds - Abdominal Exam Abdominal exam: Present: soft, Non-Tender. Absent: tenderness - Extremities Exam Extremities exam: Present: normal inspection, full ROM - Expanded Upper Extremity Exam Shoulder exam: Present: normal inspection, full ROM Arm exam: Present: normal inspection, full ROM Elbow exam: Present: normal inspection, full ROM Forearm/Wrist exam: Present: normal inspection, full ROM Hand exam: Present: normal inspection, full ROM - Expanded Lower Extremity Exam Hip/Pelvis exam: Present: normal inspection, full ROM Upper leg exam: Present: normal inspection, full ROM Knee exam: Present: normal inspection, full ROM Lower leg exam: Present: normal inspection, full ROM Ankle exam: Present: normal inspection, full ROM Foot/toe exam: Present: normal inspection, full ROM - Skin Skin exam: Present: warm, dry Course Course Narrative: Patient seen and examined. Vital signs reviewed. Plan for EKG, chest x-ray as well as labs including troponin. - Reevaluation(s) Reevaluation #1: Discussed results of imaging labs with the patient. Vital Signs Temperature 98.4 F 11/21/17 00:07 Pulse Rate 60 11/21/17 00:07 Respiratory Rate 20 11/21/17 00:07 Blood Pressure 110/67 11/21/17 00:07 O2 Sat by Pulse Oximetry 92 11/21/17 00:07 Temperature 98.1 F 11/21/17 03:57 Pulse Rate 59 11/21/17 03:57 Respiratory Rate 15 11/21/17 03:57 Blood Pressure 124/50 11/21/17 03:57 O2 Sat by Pulse Oximetry 99 11/21/17 03:57 Oxygen Delivery Oxygen Delivery Nasal Cannula Chest Pain - MDM Narrative Medical decision making narrative: 77-year-old female with chest pain and shortness of breath for one week. History of congestive heart failure. Chest x-ray with pulmonary congestion and cardiomegaly. Elevated BNP. 40 mg Lasix given. Admitted for acute on chronic congestive heart failure. - Lab Data Lab results reviewed: Yes I reviewed the patient's lab results. Result diagrams: 11/21/17 00:30 11/21/17 00:30 Lab Results 11/21/17 11/21/17 11/21/17 Range/Units 00:20 00:20 00:30 WBC 2.6 L (4.3-11.1) K/mcL RBC 2.69 L (3.82-4.97) M/mcL Hgb 8.2 L (11.5-15.4) g/dL Hct 25.8 L (35.3-44.9) % MCV 95.9 (83.0-100.0) fL MCH 30.5 (28.0-33.3) pg MCHC 31.8 (31.6-35.5) g/dL RDW 15.8 H (11.5-14.5) % Plt Count 88 L (140-400) K/mcL MPV 10.8 (9.4-12.4) fL Immature Gran % 0.8 (0-4) % Seg Neutrophils % 68.6 % Lymphocytes % 15.1 % Monocytes % 12.4 % Eosinophils % 2.7 % Basophils % 0.4 % Neutrophils # 1.8 (1.6-8.9) K/mcL Lymphocytes # 0.4 L (0.6-4.6) K/mcL Monocytes # 0.3 (0.0-1.3) K/mcL Eosinophils # 0.1 (0.0-0.6) K/mcL Basophils # 0.0 (0.0-0.2) K/mcL Immature Plt Fraction 4.1 (1.1-6.1) % PT 13.4 H (9.4-12.1) Seconds INR 1.2 APTT 36.1 H (26.0-36.0) Seconds Sodium (136-145) mEq/L Potassium (3.5-5.1) mEq/L Chloride (98-107) mEq/L Carbon Dioxide (23-29) mEq/L BUN (8-23) mg/dL Creatinine (0.60-1.20) mg/dL Est GFR ( Amer) (> 60) Est GFR (Non-Af Amer) (> 60) BUN/Creatinine Ratio (6-26) Glucose (70-105) mg/dL Calculated Osmolality (280-300) Calcium (8.6-10.3) mg/dL Troponin I (< 0.04) ng/mL B-Natriuretic Peptide 1042 H (Less than 100) pg/mL 11/21/17 Range/Units 00:30 WBC (4.3-11.1) K/mcL RBC (3.82-4.97) M/mcL Hgb (11.5-15.4) g/dL Hct (35.3-44.9) % MCV (83.0-100.0) fL MCH (28.0-33.3) pg MCHC (31.6-35.5) g/dL RDW (11.5-14.5) % Plt Count (140-400) K/mcL MPV (9.4-12.4) fL Immature Gran % (0-4) % Seg Neutrophils % % Lymphocytes % % Monocytes % % Eosinophils % % Basophils % % Neutrophils # (1.6-8.9) K/mcL Lymphocytes # (0.6-4.6) K/mcL Monocytes # (0.0-1.3) K/mcL Eosinophils # (0.0-0.6) K/mcL Basophils # (0.0-0.2) K/mcL Immature Plt Fraction (1.1-6.1) % PT (9.4-12.1) Seconds INR APTT (26.0-36.0) Seconds Sodium 141 (136-145) mEq/L Potassium 3.5 (3.5-5.1) mEq/L Chloride 104 (98-107) mEq/L Carbon Dioxide 30 H (23-29) mEq/L BUN 20 (8-23) mg/dL Creatinine 1.22 H (0.60-1.20) mg/dL Est GFR ( Amer) 52 L (> 60) Est GFR (Non-Af Amer) 43 L (> 60) BUN/Creatinine Ratio 16 (6-26) Glucose 103 (70-105) mg/dL Calculated Osmolality 295 (280-300) Calcium 8.6 (8.6-10.3) mg/dL Troponin I 0.03 (< 0.04) ng/mL B-Natriuretic Peptide (Less than 100) pg/mL - Radiology Data Radiology results reviewed: Yes I reviewed the patient's radiology results. Chest X-Ray 11/21/17 00:20 IMPRESSION: CHF and mild pulmonary vascular congestion. Small left-sided pleural effusion. D/ / Peewee Granger MD / Peewee Granger MD Interpreting Provider: Peewee Granger MD - EKG Data EKG attestation: Yes I reviewed and interpreted this EKG. EKG results narrative: EKG demonstrates sinus rhythm with left bundle-branch block with a rate of 63 beats per minute. Normal axis. Prolonged QRS ration 151. Poor R-wave progression. Nonspecific ST-T wave changes inferior and laterally secondary to block. No gross ST elevations or depressions. No changes from prior EKG on 11/19. Heart Score - Score History: Slightly Suspicious EKG: Normal Age: Greater than 65 Risk Factors: Equal/Greater than 3 risk factor or history of atherosclerotic disease Troponin: Less than normal limit HEART Score Total: 4 S.B.A.R. - S.B.A.R. Situation: Demographics, MOA Background: Presenting Complaint, Relevant PMH, Meds, & Allergies Assessment: Vital Signs, Course and respsone to treatment, Exam Concerns, Patient/Family Expectation, Pertinant Lab Results Recommendation: Barrier(s) to disposition, Recommendation based on pending studies, treatments, or consults S.B.A.RMary Jo Report Given to: Dr. Jagruti Campbell Repor Time: 02:15 Attestation Statement - Attestation Attestation: I examined this patient and my medical decision-making was reviewed with the Resident Physician. I agree with the documented findings, disposition and treatment plan as described except to the extent set forth below. Patient with findings consistent with heart failure. Patient will be admitted to the hospital for further management including diuresis. Patient has had multiple visits recently for heart failure which have not been amenable to outpatient management.
[2017-11-21 01:25] LABS: Basophils % 0.4 %; Hemoglobin 8.2 g/dL (11.5-15.4); Mean Platelet Volume 10.8 fL (9.4-12.4); Monocytes % 12.4 %
[2017-11-21 01:27] LABS: Eosinophils # 0.1 K/mcL (0.0-0.6); Eosinophils % 2.7 %; Hematocrit 25.8 % (35.3-44.9); Immature Granulocytes % 0.8 % (0-4); Immature Platelets 4.1 % (1.1-6.1); Lymphocytes # 0.4 K/mcL (0.6-4.6); Lymphocytes % 15.1 %; Mean Corpuscular HGB Conc 31.8 g/dL (31.6-35.5); Mean Corpuscular Hemoglobin 30.5 pg (28.0-33.3); Mean Corpuscular Volume 95.9 fL (83.0-100.0); Monocytes # 0.3 K/mcL (0.0-1.3); Neutrophils # 1.8 K/mcL (1.6-8.9); Red Blood Count 2.69 M/mcL (3.82-4.97); Red Cell Distribution Width 15.8 % (11.5-14.5); Segmented Neutrophils % 68.6 %
[2017-11-21 01:28] LABS: Platelet Count 88 K/mcL (140-400)
[2017-11-21 01:35] LABS: INR 1.2; Prothrombin Time 13.4 Seconds (9.4-12.1)
[2017-11-21 01:37] LABS: Activated Partial Thrombo Time 36.1 Seconds (26.0-36.0)
[2017-11-21 01:51] LABS: Calcium 8.6 mg/dL (8.6-10.3); Potassium 3.5 mEq/L (3.5-5.1)
[2017-11-21 01:53] LABS: Troponin I 0.03 ng/mL (< 0.04)
[2017-11-21] MEDS ORDERED: Furosemide 40 MG/4 ML VIAL IVP ONE (01:58)
[2017-11-21] MEDS ORDERED: Naloxone 0.4 MG/ML INJ IVP PRN (02:36)
[2017-11-21] MEDS ORDERED: Baclofen 10 MG TABLET PO PRN (02:38)
--- NOTE | 2017-11-21 03:23 | Internal Med History&Physical ---
Date of Encounter: 11/21/17 Time of Encounter: 03:00 Internal Medicine - H&P: HPI Chief complaint: Shortness of breath Admitted From: Emergency Dept Plans for Post Hospital Care: Home History of present illness: Ms. 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 Symptoms have been going on for 1 week now. She was seen by her primary care provider on Wednesday and her Lasix dosage was increased. Despite taking the increased dose of Lasix, she has continued to have shortness of breath. She also reports right-sided chest pain that gets worse with any activity. It radiates up to her right neck. She also has intermittent left-sided chest pain. She does report a history of fibromyalgia. She is being evaluated by [facility] for TAVR for severe aortic stenosis of bioprostheic valve. She does report increased bilateral pedal edema. She is on chronic O2 supplementation at 2 1/2 to 3L/min. Past Med Surg Social Fam HX - Past Medical History Medical history: atrial fibrillation, cirrhosis, CHF, COPD, coronary artery disease, fibromyalgia, GERD, hyperlipidemia, hypertension, osteoporosis Additional medical history: anemia, stage 3 kidney failure. Psychiatric history: anxiety, depression - Past Surgical History Surgical History: heart valve replacement, hysterectomy, orthopedic, other Additional surgical history: Heart cath with stents. Bladder suspension. Neck - Social History Smoking Status: Former smoker Smokeless Tobacco Status: No Alcohol use: none Drug use: none - Family History Mother Living Status: Father Living Status: Internal Medicine - H&P: Meds Amiodarone [Cordarone] 200 mg PO DAILY 11/21/17 [History] Aspirin 81 mg PO DAILY 11/21/17 [History] Atorvastatin [Lipitor] 10 mg PO HS 11/21/17 [History] Baclofen [Lioresal] 10 mg PO TID PRN 11/21/17 [History] Cyanocobalamin (Vitamin B-12) [Vitamin B-12] 1,000 mcg PO DAILY 11/21/17 [ History] DULoxetine [Cymbalta] 60 mg PO BID 11/21/17 [History] Ferrous Gluconate 324 mg PO BID 11/21/17 [History] Furosemide [Lasix] 40 mg PO BID 11/21/17 [History] HydrOXYzine 50 mg PO 3-4XD PRN 11/21/17 [History] Ibuprofen [Ibu] 400 mg PO PRN PRN 11/21/17 [History] Melatonin 5 mg PO TID 11/21/17 [History] Metoprolol [Lopressor] 25 mg PO DAILY 11/21/17 [History] Omeprazole [PriLOSEC] 20 mg PO DAILY 11/21/17 [History] Oxybutynin [Ditropan] 10 mg PO DAILY 11/21/17 [History] Potassium Chloride [K-Tab ER] 20 meq PO BID 11/21/17 [History] amLODIPine [Norvasc] 5 mg PO DAILY 11/21/17 [History] traZODone [TraZODone] 50 mg PO HS 11/21/17 [History] 3 Allergy/AdvReac Type Severity Reaction Status Date / Time pregabalin [From Lyrica] Allergy Mild Confusion Verified 05/10/17 11:21 All Systems PM: A 10-system review of systems was performed and is negative for pertinent findings except as documented above in the HPI. - Constitutional Constitutional: no chills, no fever(s), no night sweats - EENT Eyes: no change in vision, no discharge, no pain, no photophobia Ears: no ear discharge, no ear pain, no tinnitus Nose, mouth and throat: no dysphagia, no nasal discharge, no neck pain, no sore throat - Cardiovascular Cardiovascular ROS IM: chest pain, dyspnea, dyspnea on exertion, edema, no diaphoresis, no lightheadedness, no palpitations, no syncope - Respiratory Respiratory: no cough, no dyspnea, no wheezing, no excessive phlegm production - Gastrointestinal Gastrointestinal: no abdominal pain, no diarrhea, no hematemesis, no hematochezia, no melena, no nausea, no vomiting - Genitourinary Genitourinary: no change in urinary stream, no dysuria, no flank pain, no hematuria - Musculoskeletal Musculoskeletal ROS IM: no numbness, no tingling - Integumentary Integumentary IM: no rash, no unusual bruising - Neurological Neurological ROS: no confusion, no convulsions, no focal weakness, no numbness, no tingling, no tremor(s) - Hematologic/Lymphatic Hematologic/Lymphatic: no easy bruising - Constitutional Vitals: Temp Pulse Resp BP Pulse Ox 98.4 F 61 16 138/70 97 11/21/17 00:14 11/21/17 02:55 11/21/17 02:55 11/21/17 02:55 11/21/17 02:55 General appearance: Present: cooperative, A&O X 3, pleasant, answers questions appropriately - Eye Eye exam: Present: EOMI, conjuntiva pink, sclera anicteric - Neck Neck exam general surgery: Present: supple, trachea midline. Absent: lymphadenopathy - Respiratory Respiratory exam: Present: CTAB. Absent: accessory muscle use, rales, rhonchi, wheezes - Cardiovascular Cardiovascular exam: Present: RRR, +S1, +S2, systolic murmur. Absent: diastolic murmur, gallop, rubs - GI/Abdominal GI/Abdominal exam: Present: normal bowel sounds, soft, no peritoneal signs. Absent: distended, tenderness - Extremities Exam Extremities exam: Present: pedal edema, warm, radial pulses palpable and symmetrical. Absent: calf tenderness, cyanotic - Neurological Exam Neurological exam: Present: CN II-XII intact, oriented X3, no focal deficits. Absent: pronater drift, facial droop, speech deficit Internal Med - H&P Results - Labs CBC & Chem 7: 11/21/17 00:30 11/21/17 00:30 - Impressions Impressions Chest X-Ray 11/21/17 00:20 IMPRESSION: CHF and mild pulmonary vascular congestion. Small left-sided pleural effusion. D/ / Peewee Granger MD / Peewee Granger MD Interpreting Provider: Peewee Granger MD - Assessment and plan (1) Acute exacerbation of CHF (congestive heart failure) Current Visit: Yes Status: Acute Assessment and plan: Acute on chronic diastolic congestive heart failure. Will treat with IV Lasix. Fluid restriction. Monitor vital signs closely. Patient had a 2-D echocardiogram in June which showed 55% EF with borderline pulmonary hypertension and stenosis of bioprosthetic aortic valve. Monitor input and output. Monitor renal function. High risk for complications. Qualifiers: Heart failure type: diastolic Qualified Code(s): I50.33 - Acute on chronic diastolic (congestive) heart failure (2) Chronic respiratory failure Current Visit: Yes Status: Chronic Assessment and plan: Continue O2 supplementation Qualifiers: Respiratory failure complication: hypoxia Qualified Code(s): J96.11 - Chronic respiratory failure with hypoxia (3) A-fib Current Visit: Yes Status: Chronic Assessment and plan: Will continue home medications. Heart rate is controlled at this time. Not on anticoagulation due to reported history of GI bleed. Qualifiers: Atrial fibrillation type: chronic Qualified Code(s): I48.2 - Chronic atrial fibrillation (4) HTN (hypertension) Current Visit: Yes Status: Chronic Assessment and plan: Continue home medications. Monitor blood pressure Qualifiers: Hypertension type: essential hypertension Qualified Code(s): I10 - Essential (primary) hypertension (5) Prosthetic aortic valve stenosis Current Visit: Yes Status: Chronic Assessment and plan: With severe stenosis. Patient is being evaluated [facility] for TAVR. Recommend outpatient follow-up for further management. This could also be contributing to patient's recurrent bouts of congestive heart failure. (6) ARISTIDES (acute kidney injury) Current Visit: Yes Status: Acute Assessment and plan: Patient has mild acute kidney injury with creatinine of 1.22. Anticipate a rising serum creatinine use of IV Lasix. We will monitor renal function closely. (7) DVT prophylaxis Current Visit: Yes Status: Chronic Assessment and plan: With SCDs alone as patient is anemic and also has thrombocytopenia. - Time Spent With Patient Total time spent is greater than 50% in coordination of care (as documented) at patient's floor/unit and/or counseling patient:
[2017-11-21] MEDS ORDERED: hydrOXYzine pamoate 25 MG CAPSULE PO PRN (03:31)
[2017-11-21] MEDS: Cyanocobalamin (B-12) 1,000 MCG TABLET PO SCH (09:26)
[2017-11-21] MEDS: Furosemide 40 MG/4 ML VIAL IVP SCH ×2 (09:26→16:20)
[2017-11-21] MEDS: Metoprolol XL (24 HR) Succ 25 MG TAB.ER.24H PO SCH (09:26)
[2017-11-21] MEDS: *HR* Amiodarone 200 MG TABLET PO SCH (09:27)
[2017-11-21] MEDS: amLODIPine 5 MG TABLET PO SCH (09:27)
[2017-11-21] MEDS: Aspirin 81 MG TAB.CHEW PO SCH (09:27)
[2017-11-21] MEDS ORDERED: Acetaminophen 325 MG TABLET PO PRN (12:05)
--- NOTE | 2017-11-21 13:35 | Event Note ---
Date of Encounter: 11/21/17 Time of Encounter: 13:31 S: Patient had no acute events overnight. Her only complaint this AM is back pain, which is chronic for her. She wants something stronger than Tylenol. Nursing staff reports mild chest pain this AM unchanged from yesterday. She states the chest pain is getting better with diuresis. She denies SOB, fever, chills, nausea, vomiting, or abdominal pain. She has no other complaints at this time. O: Gen - Awake, alert, well-nourished, no acute distress HEENT - NCAT, PERRLA, EOMI, hearing grossly intact, oropharynx benign CV - RRR, normal S1 and S2, no M/R/G, trace BLE edema Resp - Normal WOB, CTAB, no W/R/R GI - Soft, NT/ND, no masses, normal bowel sounds, no HSP Skin - Warm, dry, no rashes/lesions/ulcers Psych - Normal mood and affect, no depression or anxiety A/P: 1) Acute Exacerbation of CHF - Continue IV lasix. Monitor strict I&Os and daily weights. Continue all other home medications. Repeat labwork in AM. Monitor renal function closely while on diuretics. 2) ARISTIDES - Monitor. Recheck BMP in AM. 3) Back Pain, Chronic - Continue Tylenol PRN for mild-moderate pain. Added ultram PRN for severe pain.
[2017-11-21] MEDS ORDERED: Melatonin 3 MG TABLET PO SCH (21:00)
[2017-11-21] MEDS ORDERED: traZODone 50 MG TABLET PO SCH (21:00)
[2017-11-21] MEDS: traMADol 50 MG TABLET PO PRN (21:40)
[2017-11-22] MEDS ORDERED: traMADol 50 MG TABLET PO ONE (01:31)
[2017-11-22 07:30] VITALS: BP 110/65
[2017-11-22 08:05] LABS: Basophils % 0.4 %; Eosinophils # 0.1 K/mcL (0.0-0.6); Eosinophils % 4.6 %; Hemoglobin 9.3 g/dL (11.5-15.4); Immature Granulocytes % 1.5 % (0-4); Lymphocytes # 0.4 K/mcL (0.6-4.6); Lymphocytes % 13.7 %; Mean Corpuscular Hemoglobin 29.8 pg (28.0-33.3); Mean Corpuscular Volume 96.2 fL (83.0-100.0); Mean Platelet Volume 10.6 fL (9.4-12.4); Monocytes # 0.3 K/mcL (0.0-1.3); Monocytes % 11.8 %; Neutrophils # 1.8 K/mcL (1.6-8.9); Platelet Count 103 K/mcL (140-400); Red Blood Count 3.12 M/mcL (3.82-4.97); Red Cell Distribution Width 15.6 % (11.5-14.5)
[2017-11-22 08:25] LABS: Calcium 8.8 mg/dL (8.6-10.3); Potassium 3.6 mEq/L (3.5-5.1)
[2017-11-22] MEDS: traMADol 50 MG TABLET PO PRN (09:11)
[2017-11-22] MEDS: Cyanocobalamin (B-12) 1,000 MCG TABLET PO SCH (09:11)
[2017-11-22] MEDS: amLODIPine 5 MG TABLET PO SCH (09:11)
[2017-11-22] MEDS: Metoprolol XL (24 HR) Succ 25 MG TAB.ER.24H PO SCH (09:11)
[2017-11-22] MEDS: Furosemide 40 MG/4 ML VIAL IVP SCH (09:11)
[2017-11-22] MEDS: Aspirin 81 MG TAB.CHEW PO SCH (09:12)
[2017-11-22] MEDS: *HR* Amiodarone 200 MG TABLET PO SCH (09:12)
--- NOTE | 2017-11-22 09:20 | Discharge Summary ---
- NOTES TO OUTPATIENT PROVIDER Notes to Outpatient Provider: Follow up with PCP in 2-3 days after discharge. Recheck BMP (ARISTIDES) at that time. Keep follow up with cardiology at [facility] as directed. Date of Encounter: 11/22/17 Time of Encounter: 09:18 - Discharge Diagnosis (1) Acute exacerbation of CHF (congestive heart failure) Priority: Primary Status: Acute Qualifiers: Heart failure type: diastolic Qualified Code(s): I50.33 - Acute on chronic diastolic (congestive) heart failure (2) Prosthetic aortic valve stenosis Priority: Secondary Status: Chronic (3) Chronic respiratory failure Priority: Secondary Status: Chronic Qualifiers: Respiratory failure complication: hypoxia Qualified Code(s): J96.11 - Chronic respiratory failure with hypoxia (4) ARISTIDES (acute kidney injury) Priority: Secondary Status: Resolved (5) HTN (hypertension) Priority: Secondary Status: Chronic Qualifiers: Hypertension type: essential hypertension Qualified Code(s): I10 - Essential (primary) hypertension (6) A-fib Priority: Secondary Status: Chronic Qualifiers: Atrial fibrillation type: chronic Qualified Code(s): I48.2 - Chronic atrial fibrillation (7) DVT prophylaxis Priority: Secondary Status: Acute Hospital course: Ms. Chilel is a 77 year old female who was admitted for acute exacerbation of diastolic CHF. She was admitted for observation to general medical floor with telemetry. Home PO lasix was held, and she was diuresed with lasix 40 mg IV BID. She had good urine output overnight. She was on 3L NC this morning, which is what she is on at home. She states that she is feeling much better. She denies chest pain, SOB, and edema. She has no complaints today. ARISTIDES looks to have resolved this AM. She will follow up with PCP in 2-3 days after discharge. Repeat BMP (ARISTIDES) can be rechecked at that time. She will keep follow up with air analyst at [facility] for her prosthetic aortic valve stenosis. Patient has met maximum benefit of this hospitalization and will be discharged home in stable condition. Discharge discussed with: patient, nurse - Time Spent with Patient Total time spent providing and/or coordinating discharge services: Less than 30 minutes - Discharge Medications Home Medications: Amiodarone [Cordarone] 200 mg PO DAILY 11/21/17 [History] Aspirin 81 mg PO DAILY 11/21/17 [History] Atorvastatin [Lipitor] 10 mg PO HS 11/21/17 [History] Baclofen [Lioresal] 10 mg PO TID PRN 11/21/17 [History] Cyanocobalamin (Vitamin B-12) [Vitamin B-12] 1,000 mcg PO DAILY 11/21/17 [ History] DULoxetine [Cymbalta] 60 mg PO BID 11/21/17 [History] Ferrous Gluconate 324 mg PO BID 11/21/17 [History] Furosemide [Lasix] 40 mg PO BID 11/21/17 [History] HydrOXYzine 50 mg PO 3-4XD PRN 11/21/17 [History] Melatonin 5 mg PO TID 11/21/17 [History] Metoprolol [Lopressor] 25 mg PO DAILY 11/21/17 [History] Omeprazole [PriLOSEC] 20 mg PO DAILY 11/21/17 [History] Oxybutynin [Ditropan] 10 mg PO DAILY 11/21/17 [History] Potassium Chloride [K-Tab ER] 20 meq PO BID 11/21/17 [History] amLODIPine [Norvasc] 5 mg PO DAILY 11/21/17 [History] traZODone [TraZODone] 50 mg PO HS 11/21/17 [History] Allergies/Adverse Reactions: 3 Allergy/AdvReac Type Severity Reaction Status Date / Time pregabalin [From Lyrica] Allergy Mild Confusion Verified 05/10/17 11:21 Date of admission: 11/21/17 02:16 Primary care physician: Titi Garcia DO Consults: 11/22/17 07:56 Consult to Nurse Navigator [CONS] Routine Comment: CHF Discharging clinician: Alphonse Lewis Anticipated date of discharge: 11/22/17 - Constitutional Vitals: Temp Pulse Resp BP Pulse Ox 97.8 F 51 14 110/65 3 11/22/17 07:27 11/22/17 07:27 11/22/17 07:27 11/22/17 07:27 11/22/17 09:00 General appearance: Present: cooperative, A&O X 3, pleasant, no acute distress, answers questions appropriately - Respiratory Respiratory exam: Present: CTAB. Absent: accessory muscle use, rales, rhonchi, wheezes Additional comments: Normal WOB - Cardiovascular Cardiovascular exam: Present: RRR, +S1, +S2. Absent: diastolic murmur, gallop, rubs, systolic murmur Additional comments: Trace BLE edema - GI/Abdominal GI/Abdominal exam: Present: normal bowel sounds, soft. Absent: distended, hepatomegaly, mass, splenomegaly, tenderness - Psychiatric Psychiatric exam: Present: normal affect, normal mood. Absent: agitated, anxious, depressed - Skin Skin exam: Present: dry, intact, warm. Absent: cyanosis, rash - Patient Status Disposition: Home, Self-Care Condition: Good Overall status at discharge: patient is progressing back to baseline - Discharge Instructions Follow Up With: Titi Garcia DO [Primary Care Provider] - 11/30/17 1:00 pm Additional Instructions: Follow up with PCP in 2-3 days after discharge. Recheck BMP (ARISTIDES) at that time. Keep follow up with cardiology at [facility] as directed. - Diet and Activity Activity: resume usual activities as tolerated, wear oxygen at all times Diet: low fat, low cholesterol, low salt diet, other (Cardiac Diet) - VTE Documentation of Mechanical Device: Intermittent pneumatic compression device
--- NOTE | 2017-11-22 11:11 | Physician Discharge Referral ---
Home Health/Hosp Referral Info Transfer to: Home Health Provider in Charge Post Discharge: PCP - Diagnosis (1) Acute exacerbation of CHF (congestive heart failure) Priority: Primary Status: Acute (2) Prosthetic aortic valve stenosis Priority: Secondary Status: Chronic (3) Chronic respiratory failure Priority: Secondary Status: Chronic (4) ARISTIDES (acute kidney injury) Priority: Secondary Status: Resolved (5) HTN (hypertension) Priority: Secondary Status: Chronic (6) A-fib Priority: Secondary Status: Chronic (7) DVT prophylaxis Priority: Secondary Status: Acute - Respiratory Orders Oxygen / L per min (3L NC) Smoking Cessation: Smoking cessation has been advised. For more information, call the [place] Tobacco Quit Line at 7-235-KSYE-NOW. - Diet/Nutrition Diet/Nutrition Orders: No Added Salt (DARA), Cardiac - Activity Activity: List: Per physical therapy - Services Needed Following services are medically necessary services: Nursing, Physical Therapy, Occupational Therapy - Transfer Medications Home Medications: Amiodarone [Cordarone] 200 mg PO DAILY 11/21/17 [History] Aspirin 81 mg PO DAILY 11/21/17 [History] Atorvastatin [Lipitor] 10 mg PO HS 11/21/17 [History] Baclofen [Lioresal] 10 mg PO TID PRN 11/21/17 [History] Cyanocobalamin (Vitamin B-12) [Vitamin B-12] 1,000 mcg PO DAILY 11/21/17 [ History] DULoxetine [Cymbalta] 60 mg PO BID 11/21/17 [History] Ferrous Gluconate 324 mg PO BID 11/21/17 [History] Furosemide [Lasix] 40 mg PO BID 11/21/17 [History] HydrOXYzine 50 mg PO 3-4XD PRN 11/21/17 [History] Melatonin 5 mg PO TID 11/21/17 [History] Metoprolol [Lopressor] 25 mg PO DAILY 11/21/17 [History] Omeprazole [PriLOSEC] 20 mg PO DAILY 11/21/17 [History] Oxybutynin [Ditropan] 10 mg PO DAILY 11/21/17 [History] Potassium Chloride [K-Tab ER] 20 meq PO BID 11/21/17 [History] amLODIPine [Norvasc] 5 mg PO DAILY 11/21/17 [History] traZODone [TraZODone] 50 mg PO HS 11/21/17 [History] Allergies/Adverse Reactions: 3 Allergy/AdvReac Type Severity Reaction Status Date / Time pregabalin [From Lyrica] Allergy Mild Confusion Verified 05/10/17 11:21 Certification: Further, I certify that my clinical findings support that this patient is homebound (i.e. absences from home require considerable and taxing effort and are for medical reasons or baptism services or infrequently or short duration when for other reasons) because: acute on chronic respiratory failure, acute on chronic diastolic CHF, Afib, HTN, and prosthetic aortic valve stenosis. Homebound Reason: Patient requires assistance of a person or device to safely leave home, Leaving home requires considerable and taxing effort due to condition, Severity of cardiac or pulmonary status limits activity tolerance Attestation: My signature below is to certify that this patient is under my care and that I, or nurse practitioner, or a physician's research program assistant working with me, has a face-to -face encounter with this patient.
--- NOTE | 2017-11-22 17:36 | Electrocardiograph Report ---
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
== END 2017-11-22 12:50 | disposition home or self-care (01) ==
LOC: 3BNU 00:06 → EMEROO 00:06 → 3BNU 03:20
PROVIDERS: ADMIT Internal Medicine; ATTEND Internal Medicine

== ENCOUNTER 2018-01-19 16:17 | Observation (INO) ==
--- NOTE | 2018-01-19 16:48 | Emergency Department Note ---
Disposition Clinical Impression: Altered mental status Qualifiers: Altered mental status type: unspecified Qualified Code(s): R41.82 - Altered mental status, unspecified Disposition: Admitted As Inpatient Condition: Fair Referrals: Titi Garcia DO [Primary Care Provider] - Time of Disposition: 18:32 Altered Mental Status HPI - General Chief Complaint: ED Altered Mental Status Stated Complaint: Altered Time Seen by Provider: 01/19/18 16:25 Source: patient, EMS Mode of arrival: EMS Limitations: altered mental status, physical limitation Nursing Notes Reviewed: Yes Vital Signs Reviewed: Yes - History of Present Illness HPI Narrative: 77 year old white female from nursing [facility] presents for altered mental status. Difficult to obtain history from patient due to AMS, but says that she fell last Wednesday in the restroom and hurt her knees and left hip. Difficult to obtain history from at bedside due to history of stroke, but says she's been altered for 2 weeks. Patient also reports urinary incontinence that has been going on a "long long time". Denies chest pain, shortness of breath, nausea, vomiting, numbness, tingling, swelling, abdominal pain, fever, chills, bowel changes, urinary changes. Patient has complicated medical history including QUIÑONEZ cirrhosis, UTIs, aortic stenosis with valve replacement, AVMs with gastric bleeding, grade 1 esophageal varices, iron deficiency anemia requiring frequent transfusions, CAD, HTN, Afib, COPD, chronic kidney disease, anxiety, depression, and is a former smoker. - Related Data Home Medications Medication Instructions Recorded Confirmed Amiodarone [Cordarone] 200 mg PO DAILY 11/21/17 01/19/18 Aspirin 81 mg PO DAILY 11/21/17 01/19/18 Baclofen [Lioresal] 10 mg PO TID PRN 11/21/17 01/19/18 Cyanocobalamin (Vitamin B-12) 1,000 mcg PO DAILY 11/21/17 01/19/18 [Vitamin B-12] Ferrous Gluconate 324 mg PO BID 11/21/17 01/19/18 Furosemide [Lasix] 40 mg PO DAILY 11/21/17 01/19/18 Metoprolol [Lopressor] 25 mg PO DAILY 11/21/17 01/19/18 Omeprazole [PriLOSEC] 20 mg PO DAILY 11/21/17 01/19/18 amLODIPine [Norvasc] 5 mg PO DAILY 11/21/17 01/19/18 traZODone [TraZODone] 50 mg PO HS 11/21/17 01/19/18 Bupropion HCl [Wellbutrin Xl] 300 mg PO DAILY 12/30/17 01/19/18 Acetaminophen [Acetaminophen ER] 650 mg PO Q4H PRN 01/19/18 01/19/18 Guaifenesin [Siltussin SA] 10 ml PO Q4H PRN 01/19/18 01/19/18 Levothyroxine [Synthroid] 75 mcg PO DAILY 01/19/18 01/19/18 Oxybutynin Chloride [Ditropan Xl] 10 mg PO DAILY 01/19/18 01/19/18 Potassium Chloride [Klor-Con 20 meq PO DAILY 01/19/18 01/19/18 Sprinkle] Simvastatin [Zocor] 10 mg PO HS 01/19/18 01/19/18 hydrOXYzine HCl [Hydroxyzine HCl] 25 mg PO BID PRN 01/19/18 01/19/18 Allergies Allergy/AdvReac Type Severity Reaction Status Date / Time pregabalin [From Lyrica] Allergy Mild Confusion Verified 12/30/17 14:26 All systems ED: reviewed and negative except as stated. Past Medical History - Past Medical History Medical history: Reports: atrial fibrillation, cirrhosis, CHF, COPD, coronary artery disease, fibromyalgia, GERD, hyperlipidemia, hypertension, osteoporosis Surgical history: Reports: heart valve replacement, hysterectomy, orthopedic, other Psychiatric history: Reports: anxiety, depression - Social History Smoking Status: Former smoker Smokeless Tobacco Status: No Alcohol use: Reports: none Drug use: Reports: none Physical Exam - General Limitations: altered mental status, physical limitation General appearance: alert - Eye Eye exam: Present: normal appearance, PERRL, EOMI - ENT ENT exam: normal exam, normal oropharynx, mucous membranes moist - Neck Neck exam: Present: normal inspection, full ROM, trachea midline - Respiratory Respiratory exam: Present: normal lung sounds bilaterally - Cardiovascular Cardiovascular exam: Present: regular rate, normal rhythm, normal heart sounds, other (murmur) - Abdominal Exam Abdominal exam: Present: soft, Non-Tender. Absent: tenderness, distention, guarding, rebound, rigidity - Extremities Exam Extremities exam: Present: normal inspection, full ROM, other (Sensation intact. Left hip flexion 4/5, otherwise motor strength 5/5 bilaterally. ). Absent: tenderness, pedal edema - Expanded Lower Extremity Exam Hip/Pelvis exam: Present: normal inspection. Absent: abrasion, ecchymosis, deformity, erythema Knee exam: Present: normal inspection. Absent: swelling, abrasion, ecchymosis, deformity, erythema - Neurological Exam Neurological exam: Present: alert, CN II-XII intact. Absent: oriented X3, motor sensory deficit - Psychiatric Psychiatric exam: Present: agitated - Skin Skin exam: Present: warm, dry, intact, normal color Course Course Narrative: 77 [facility] old [facility] presenting for altered mental status. Difficult to get history from patient and patient's . Patient is alert and oriented to place and person but not to time. Patient is hemodynamically stable and of non-toxic appearance. Will order ED altered mental status workup including EKG, UA, CT head without contrast, and labwork. Also XRs of L hip and bilateral knees. - Reevaluation(s) Reevaluation #1: CT head shows no intracranial abnormality. XRs of chest, hip, and knees show no acute abnormality. UA is negative. Labwork is relatively unchanged from prior labs 1 month and 2 months ago. Spoke with patient and patient's about negative workup and about admission. They voiced understanding and agree to being admitted. Spoke with hospitalist Dr. Persaud and he agrees to admit to telemetry bed. Time: 18:31 Vital Signs Temperature 98 F 01/19/18 16:21 Pulse Rate 53 01/19/18 16:21 Respiratory Rate 18 01/19/18 16:21 Blood Pressure 125/62 01/19/18 16:21 O2 Sat by Pulse Oximetry 98 01/19/18 16:21 Temperature 98 F 01/19/18 16:21 Pulse Rate 54 01/19/18 18:26 Respiratory Rate 18 01/19/18 18:26 Blood Pressure 134/55 01/19/18 18:26 O2 Sat by Pulse Oximetry 99 01/19/18 18:26 Oxygen Delivery Oxygen Delivery Room Air Altered Mental Status - Medical Records Medical records reviewed: Yes I reviewed the patient's medical records. - Lab Data Lab results reviewed: Yes I reviewed the patient's lab results. Result diagrams: 01/19/18 17:06 01/19/18 17:06 Lab Results 01/19/18 01/19/18 01/19/18 Range/Units 12:06 17:06 17:06 WBC 3.5 L (4.3-11.1) K/mcL RBC 3.21 L (3.82-4.97) M/mcL Hgb 9.9 L (11.5-15.4) g/dL Hct 31.1 L (35.3-44.9) % MCV 96.9 (83.0-100.0) fL MCH 30.8 (28.0-33.3) pg MCHC 31.8 (31.6-35.5) g/dL RDW 17.4 H (11.5-14.5) % Plt Count 97 L (140-400) K/mcL MPV 10.1 (9.4-12.4) fL Immature Gran % 1.1 (0-4) % Seg Neutrophils % 66.5 % Lymphocytes % 17.8 % Monocytes % 12.6 % Eosinophils % 1.7 % Basophils % 0.3 % Neutrophils # 2.3 (1.6-8.9) K/mcL Lymphocytes # 0.6 (0.6-4.6) K/mcL Monocytes # 0.4 (0.0-1.3) K/mcL Eosinophils # 0.1 (0.0-0.6) K/mcL Basophils # 0.0 (0.0-0.2) K/mcL Immature Plt Fraction 3.2 (1.1-6.1) % Sodium 141 (136-145) mEq/L Potassium 3.4 L (3.5-5.1) mEq/L Chloride 106 (98-107) mEq/L Carbon Dioxide 29 (23-29) mEq/L BUN 19 (8-23) mg/dL Creatinine 1.39 H (0.60-1.20) mg/dL Est GFR ( Amer) 44 L (> 60) Est GFR (Non-Af Amer) 37 L (> 60) BUN/Creatinine Ratio 14 (6-26) Glucose 105 (70-105) mg/dL Calculated Osmolality 295 (280-300) Calcium 9.7 (8.6-10.3) mg/dL Total Bilirubin 0.8 (0.3-1.0) mg/dL Direct Bilirubin 0.3 H (0.0-0.2) mg/dL Indirect Bilirubin 0.5 (0.0-1.2) mg/dL AST 21 (13-39) Units/L ALT 9 (7-52) Units/L Alkaline Phosphatase 120 H (34-104) Units/L Ammonia 37 (16-53) mcmol/L Troponin I < 0.03 (< 0.04) ng/mL Serum Total Protein 6.2 L (6.4-8.9) g/dL Albumin 3.5 (3.5-5.7) g/dL Globulin 2.7 (2.4-3.5) g/dL Albumin/Globulin Ratio 1.3 (1.1-2.2) TSH 12.526 H (0.340-5.600) mcIU/mL Urine Color (Yellow) Urine Clarity (Clear) Urine pH (5.0-8.0) pH Units Ur Specific [place] (1.010-1.025) Urine Protein (Neg-Trace) mg/dL Urine Glucose (UA) (Normal) mg/dL Urine Ketones (Negative) mg/dL Urine Blood (Negative) Urine Nitrite (Negative) Urine Bilirubin (Negative) Urine Urobilinogen (Normal) mg/dL Ur Leukocyte Esterase (Negative) Ur Culture Indicated? (NO) Urine Opiates Screen (Yrvcwg=451) ng/mL Ur Barbiturates Screen (Vwgsin=018) ng/mL Ur Phencyclidine Scrn (Cutoff=25) ng/mL Ur Amphetamines Screen (Blozps=3690) ng/mL U Benzodiazepines Scrn (Vyigjh=288) ng/mL Urine Cocaine Screen (Cutoff= 300) ng/mL U Marijuana (THC) Screen (Cutoff = 50) ng/mL Ur Drug Screen Interp Ethyl Alcohol < 10 (Less than 10) mg/dL 01/19/18 01/19/18 Range/Units 17:50 17:50 WBC (4.3-11.1) K/mcL RBC (3.82-4.97) M/mcL Hgb (11.5-15.4) g/dL Hct (35.3-44.9) % MCV (83.0-100.0) fL MCH (28.0-33.3) pg MCHC (31.6-35.5) g/dL RDW (11.5-14.5) % Plt Count (140-400) K/mcL MPV (9.4-12.4) fL Immature Gran % (0-4) % Seg Neutrophils % % Lymphocytes % % Monocytes % % Eosinophils % % Basophils % % Neutrophils # (1.6-8.9) K/mcL Lymphocytes # (0.6-4.6) K/mcL Monocytes # (0.0-1.3) K/mcL Eosinophils # (0.0-0.6) K/mcL Basophils # (0.0-0.2) K/mcL Immature Plt Fraction (1.1-6.1) % Sodium (136-145) mEq/L Potassium (3.5-5.1) mEq/L Chloride (98-107) mEq/L Carbon Dioxide (23-29) mEq/L BUN (8-23) mg/dL Creatinine (0.60-1.20) mg/dL Est GFR ( Amer) (> 60) Est GFR (Non-Af Amer) (> 60) BUN/Creatinine Ratio (6-26) Glucose (70-105) mg/dL Calculated Osmolality (280-300) Calcium (8.6-10.3) mg/dL Total Bilirubin (0.3-1.0) mg/dL Direct Bilirubin (0.0-0.2) mg/dL Indirect Bilirubin (0.0-1.2) mg/dL AST (13-39) Units/L ALT (7-52) Units/L Alkaline Phosphatase (34-104) Units/L Ammonia (16-53) mcmol/L Troponin I (< 0.04) ng/mL Serum Total Protein (6.4-8.9) g/dL Albumin (3.5-5.7) g/dL Globulin (2.4-3.5) g/dL Albumin/Globulin Ratio (1.1-2.2) TSH (0.340-5.600) mcIU/mL Urine Color Yellow (Yellow) Urine Clarity Clear (Clear) Urine pH 7.0 (5.0-8.0) pH Units Ur Specific [place] 1.014 (1.010-1.025) Urine Protein Negative (Neg-Trace) mg/dL Urine Glucose (UA) Normal (Normal) mg/dL Urine Ketones Negative (Negative) mg/dL Urine Blood Negative (Negative) Urine Nitrite Negative (Negative) Urine Bilirubin Negative (Negative) Urine Urobilinogen Normal (Normal) mg/dL Ur Leukocyte Esterase Negative (Negative) Ur Culture Indicated? NO (NO) Urine Opiates Screen Negative (Xyjsvw=755) ng/mL Ur Barbiturates Screen Negative (Glgise=279) ng/mL Ur Phencyclidine Scrn Negative (Cutoff=25) ng/mL Ur Amphetamines Screen Negative (Iabzoh=6847) ng/mL U Benzodiazepines Scrn Negative (Gyvnkg=620) ng/mL Urine Cocaine Screen Negative (Cutoff= 300) ng/mL U Marijuana (THC) Screen Negative (Cutoff = 50) ng/mL Ur Drug Screen Interp See Below Ethyl Alcohol (Less than 10) mg/dL - Radiology Data Radiology results reviewed: Yes I reviewed the patient's radiology results. CT head 01/19/2018. No acute intracranial abnormality. CXR 01/19/2018. No acute process. Hip XR 01/19/2018. No acute abnormality. Bilateral Knee XR 01/19/2018. No acute abnormality. Chest X-Ray 01/19/18 16:41 IMPRESSION: No acute abnormality detected. D/ / Bill Carrion MD / Bill Carrion MD Interpreting Provider: Bill Carrion MD Head CT 01/19/18 16:44 IMPRESSION: No acute intracranial abnormality. D/ / Maira Reis Cha, MD / Maira Reis Cha, MD Interpreting Provider: Maira Reis Cha, MD Hip X-Ray 01/19/18 17:22 IMPRESSION: No acute abnormality detected. D/ / Bill Carrion MD / Bill Carrion MD Interpreting Provider: Bill Carrion MD Knee X-Ray 01/19/18 17:22 IMPRESSION: No acute abnormality detected. D/ / Bill Carrion MD / Bill Carrion MD Interpreting Provider: Bill Carrion MD - EKG Data EKG attestation: Yes I reviewed and interpreted this EKG. EKG results narrative: EKG 01/19/2018 17:12. Sinus rhythm. Heart rate 54. Left bundle branch block. No evidence of ischemia. No significant change from prior EKG 11/21/2017.
[2018-01-19 17:17] LABS: Basophils % 0.3 %; Red Cell Distribution Width 17.4 % (11.5-14.5); Segmented Neutrophils % 66.5 %
[2018-01-19 17:18] LABS: Eosinophils # 0.1 K/mcL (0.0-0.6); Eosinophils % 1.7 %; Hematocrit 31.1 % (35.3-44.9); Hemoglobin 9.9 g/dL (11.5-15.4); Immature Granulocytes % 1.1 % (0-4); Immature Platelets 3.2 % (1.1-6.1); Lymphocytes # 0.6 K/mcL (0.6-4.6); Lymphocytes % 17.8 %; Mean Corpuscular HGB Conc 31.8 g/dL (31.6-35.5); Mean Corpuscular Hemoglobin 30.8 pg (28.0-33.3); Mean Corpuscular Volume 96.9 fL (83.0-100.0); Mean Platelet Volume 10.1 fL (9.4-12.4); Monocytes # 0.4 K/mcL (0.0-1.3); Monocytes % 12.6 %; Neutrophils # 2.3 K/mcL (1.6-8.9); Red Blood Count 3.21 M/mcL (3.82-4.97)
[2018-01-19 17:20] LABS: Platelet Count 97 K/mcL (140-400)
--- NOTE | 2018-01-19 17:22 | Emergency Department Note ---
Disposition Clinical Impression: Altered mental status Qualifiers: Altered mental status type: unspecified Qualified Code(s): R41.82 - Altered mental status, unspecified Disposition: Admitted As Inpatient Condition: Fair Time of Disposition: 18:54 General Adult HPI - General Chief complaint: ED Altered Mental Status Stated complaint: Altered Time Seen by Provider: 01/19/18 16:25 Source: patient, EMS Mode of arrival: EMS Limitations: altered mental status, physical limitation - History of Present Illness Pain Scale: 0 - Related Data Home Medications Medication Instructions Recorded Confirmed Amiodarone [Cordarone] 200 mg PO DAILY 11/21/17 01/19/18 Aspirin 81 mg PO DAILY 11/21/17 01/19/18 Baclofen [Lioresal] 10 mg PO TID PRN 11/21/17 01/19/18 Cyanocobalamin (Vitamin B-12) 1,000 mcg PO DAILY 11/21/17 01/19/18 [Vitamin B-12] Ferrous Gluconate 324 mg PO BID 11/21/17 01/19/18 Furosemide [Lasix] 40 mg PO DAILY 11/21/17 01/19/18 Metoprolol [Lopressor] 25 mg PO DAILY 11/21/17 01/19/18 Omeprazole [PriLOSEC] 20 mg PO DAILY 11/21/17 01/19/18 amLODIPine [Norvasc] 5 mg PO DAILY 11/21/17 01/19/18 traZODone [TraZODone] 50 mg PO HS 11/21/17 01/19/18 Bupropion HCl [Wellbutrin Xl] 300 mg PO DAILY 12/30/17 01/19/18 Acetaminophen [Acetaminophen ER] 650 mg PO Q4H PRN 01/19/18 01/19/18 Guaifenesin [Siltussin SA] 10 ml PO Q4H PRN 01/19/18 01/19/18 Levothyroxine [Synthroid] 75 mcg PO DAILY 01/19/18 01/19/18 Oxybutynin Chloride [Ditropan Xl] 10 mg PO DAILY 01/19/18 01/19/18 Potassium Chloride [Klor-Con 20 meq PO DAILY 01/19/18 01/19/18 Sprinkle] Simvastatin [Zocor] 10 mg PO HS 01/19/18 01/19/18 hydrOXYzine HCl [Hydroxyzine HCl] 25 mg PO BID PRN 01/19/18 01/19/18 Allergies Allergy/AdvReac Type Severity Reaction Status Date / Time pregabalin [From Lyrica] Allergy Mild Confusion Verified 12/30/17 14:26 Past Medical History - Past Medical History Medical history: Reports: atrial fibrillation, cirrhosis, CHF, COPD, coronary artery disease, fibromyalgia, GERD, hyperlipidemia, hypertension, osteoporosis Surgical history: Reports: heart valve replacement, hysterectomy, orthopedic, other Psychiatric history: Reports: anxiety, depression - Social History Smoking Status: Former smoker Smokeless Tobacco Status: No Alcohol use: Reports: none Drug use: Reports: none Physical Exam - General Limitations: altered mental status, physical limitation General appearance: alert Course Vital Signs Temperature 98 F 01/19/18 16:21 Pulse Rate 53 01/19/18 16:21 Respiratory Rate 18 01/19/18 16:21 Blood Pressure 125/62 01/19/18 16:21 O2 Sat by Pulse Oximetry 98 01/19/18 16:21 Temperature 98 F 01/19/18 16:21 Pulse Rate 54 01/19/18 18:26 Respiratory Rate 18 01/19/18 18:26 Blood Pressure 134/55 01/19/18 18:26 O2 Sat by Pulse Oximetry 99 01/19/18 18:26 Oxygen Delivery Oxygen Delivery Room Air Medical Decision Making - Lab Data Result diagrams: 01/19/18 17:06 01/19/18 17:06 Lab Results 01/19/18 01/19/18 01/19/18 Range/Units 12:06 17:06 17:06 WBC 3.5 L (4.3-11.1) K/mcL RBC 3.21 L (3.82-4.97) M/mcL Hgb 9.9 L (11.5-15.4) g/dL Hct 31.1 L (35.3-44.9) % MCV 96.9 (83.0-100.0) fL MCH 30.8 (28.0-33.3) pg MCHC 31.8 (31.6-35.5) g/dL RDW 17.4 H (11.5-14.5) % Plt Count 97 L (140-400) K/mcL MPV 10.1 (9.4-12.4) fL Immature Gran % 1.1 (0-4) % Seg Neutrophils % 66.5 % Lymphocytes % 17.8 % Monocytes % 12.6 % Eosinophils % 1.7 % Basophils % 0.3 % Neutrophils # 2.3 (1.6-8.9) K/mcL Lymphocytes # 0.6 (0.6-4.6) K/mcL Monocytes # 0.4 (0.0-1.3) K/mcL Eosinophils # 0.1 (0.0-0.6) K/mcL Basophils # 0.0 (0.0-0.2) K/mcL Immature Plt Fraction 3.2 (1.1-6.1) % Sodium 141 (136-145) mEq/L Potassium 3.4 L (3.5-5.1) mEq/L Chloride 106 (98-107) mEq/L Carbon Dioxide 29 (23-29) mEq/L BUN 19 (8-23) mg/dL Creatinine 1.39 H (0.60-1.20) mg/dL Est GFR ( Amer) 44 L (> 60) Est GFR (Non-Af Amer) 37 L (> 60) BUN/Creatinine Ratio 14 (6-26) Glucose 105 (70-105) mg/dL Calculated Osmolality 295 (280-300) Calcium 9.7 (8.6-10.3) mg/dL Total Bilirubin 0.8 (0.3-1.0) mg/dL Direct Bilirubin 0.3 H (0.0-0.2) mg/dL Indirect Bilirubin 0.5 (0.0-1.2) mg/dL AST 21 (13-39) Units/L ALT 9 (7-52) Units/L Alkaline Phosphatase 120 H (34-104) Units/L Ammonia 37 (16-53) mcmol/L Troponin I < 0.03 (< 0.04) ng/mL Serum Total Protein 6.2 L (6.4-8.9) g/dL Albumin 3.5 (3.5-5.7) g/dL Globulin 2.7 (2.4-3.5) g/dL Albumin/Globulin Ratio 1.3 (1.1-2.2) TSH 12.526 H (0.340-5.600) mcIU/mL Urine Color (Yellow) Urine Clarity (Clear) Urine pH (5.0-8.0) pH Units Ur Specific [place] (1.010-1.025) Urine Protein (Neg-Trace) mg/dL Urine Glucose (UA) (Normal) mg/dL Urine Ketones (Negative) mg/dL Urine Blood (Negative) Urine Nitrite (Negative) Urine Bilirubin (Negative) Urine Urobilinogen (Normal) mg/dL Ur Leukocyte Esterase (Negative) Ur Culture Indicated? (NO) Urine Opiates Screen (Xicomo=312) ng/mL Ur Barbiturates Screen (Vjjnha=401) ng/mL Ur Phencyclidine Scrn (Cutoff=25) ng/mL Ur Amphetamines Screen (Wiycwe=6973) ng/mL U Benzodiazepines Scrn (Lomlee=689) ng/mL Urine Cocaine Screen (Cutoff= 300) ng/mL U Marijuana (THC) Screen (Cutoff = 50) ng/mL Ur Drug Screen Interp Ethyl Alcohol < 10 (Less than 10) mg/dL 01/19/18 01/19/18 Range/Units 17:50 17:50 WBC (4.3-11.1) K/mcL RBC (3.82-4.97) M/mcL Hgb (11.5-15.4) g/dL Hct (35.3-44.9) % MCV (83.0-100.0) fL MCH (28.0-33.3) pg MCHC (31.6-35.5) g/dL RDW (11.5-14.5) % Plt Count (140-400) K/mcL MPV (9.4-12.4) fL Immature Gran % (0-4) % Seg Neutrophils % % Lymphocytes % % Monocytes % % Eosinophils % % Basophils % % Neutrophils # (1.6-8.9) K/mcL Lymphocytes # (0.6-4.6) K/mcL Monocytes # (0.0-1.3) K/mcL Eosinophils # (0.0-0.6) K/mcL Basophils # (0.0-0.2) K/mcL Immature Plt Fraction (1.1-6.1) % Sodium (136-145) mEq/L Potassium (3.5-5.1) mEq/L Chloride (98-107) mEq/L Carbon Dioxide (23-29) mEq/L BUN (8-23) mg/dL Creatinine (0.60-1.20) mg/dL Est GFR ( Amer) (> 60) Est GFR (Non-Af Amer) (> 60) BUN/Creatinine Ratio (6-26) Glucose (70-105) mg/dL Calculated Osmolality (280-300) Calcium (8.6-10.3) mg/dL Total Bilirubin (0.3-1.0) mg/dL Direct Bilirubin (0.0-0.2) mg/dL Indirect Bilirubin (0.0-1.2) mg/dL AST (13-39) Units/L ALT (7-52) Units/L Alkaline Phosphatase (34-104) Units/L Ammonia (16-53) mcmol/L Troponin I (< 0.04) ng/mL Serum Total Protein (6.4-8.9) g/dL Albumin (3.5-5.7) g/dL Globulin (2.4-3.5) g/dL Albumin/Globulin Ratio (1.1-2.2) TSH (0.340-5.600) mcIU/mL Urine Color Yellow (Yellow) Urine Clarity Clear (Clear) Urine pH 7.0 (5.0-8.0) pH Units Ur Specific [place] 1.014 (1.010-1.025) Urine Protein Negative (Neg-Trace) mg/dL Urine Glucose (UA) Normal (Normal) mg/dL Urine Ketones Negative (Negative) mg/dL Urine Blood Negative (Negative) Urine Nitrite Negative (Negative) Urine Bilirubin Negative (Negative) Urine Urobilinogen Normal (Normal) mg/dL Ur Leukocyte Esterase Negative (Negative) Ur Culture Indicated? NO (NO) Urine Opiates Screen Negative (Trncql=596) ng/mL Ur Barbiturates Screen Negative (Wvtjqz=366) ng/mL Ur Phencyclidine Scrn Negative (Cutoff=25) ng/mL Ur Amphetamines Screen Negative (Ljrvgl=5781) ng/mL U Benzodiazepines Scrn Negative (Nhuwod=012) ng/mL Urine Cocaine Screen Negative (Cutoff= 300) ng/mL U Marijuana (THC) Screen Negative (Cutoff = 50) ng/mL Ur Drug Screen Interp See Below Ethyl Alcohol (Less than 10) mg/dL Critical Care Time Critical Care Time: No Attestation Statement - Attestation Attestation: I examined this patient and my medical decision-making was reviewed with the Resident Physician. I agree with the documented findings, disposition and treatment plan as described except to the extent set forth below. Patient presents to the ED with a chief complaint of altered mental status. It is unclear what the patient's baseline is. She was sent from the cancer center. Where she was getting iron infusion. On examination she is awake alert. She is oriented to self and place. She thinks it 2079. She has some small abrasions to her shins. She is complaining of pain in her hip and knees. Plan. Altered mental status workup. The patient's workup here is unremarkable. Head CT unremarkable. She does not have a UTI. No focal infection found. It is unclear at this time what the cause of her acute delirium is. Patient is admitted to medicine for further workup and monitoring. Chest X-Ray 01/19/18 16:41 IMPRESSION: No acute abnormality detected. D/ / Bill Carrion MD / Bill Carrion MD Interpreting Provider: Bill Carrion MD Head CT 01/19/18 16:44 IMPRESSION: No acute intracranial abnormality. D/ / Maira Reis Cha, MD / Maira Reis Cha, MD Interpreting Provider: Maira Reis Cha, MD Hip X-Ray 01/19/18 17:22 IMPRESSION: No acute abnormality detected. D/ / Bill Carrion MD / Bill Carrion MD Interpreting Provider: Bill Carrion MD Knee X-Ray 01/19/18 17:22
[2018-01-19 17:43] LABS: Troponin I < 0.03 ng/mL (< 0.04)
[2018-01-19 17:44] LABS: Alanine Aminotransferase 9 Units/L (7-52); Albumin 3.5 g/dL (3.5-5.7); Albumin/Globulin Ratio 1.3 (1.1-2.2); Alkaline Phosphatase 120 Units/L (34-104); Aspartate Amino Transferase 21 Units/L (13-39); BUN/Creatinine Ratio 14 (6-26); Bilirubin,Direct 0.3 mg/dL (0.0-0.2); Bilirubin,Indirect 0.5 mg/dL (0.0-1.2); Bilirubin,Total 0.8 mg/dL (0.3-1.0); Blood Urea Nitrogen 19 mg/dL (8-23); Calcium 9.7 mg/dL (8.6-10.3); Carbon Dioxide 29 mEq/L (23-29); Chloride 106 mEq/L (98-107); Ethanol < 10 mg/dL (Less than 10); Globulin 2.7 g/dL (2.4-3.5); Glucose 105 mg/dL (70-105); Osmolality,Calculated 295 (280-300); Potassium 3.4 mEq/L (3.5-5.1); Sodium 141 mEq/L (136-145); Total Protein 6.2 g/dL (6.4-8.9); eGFR For Non-African Americans 37 (> 60)
[2018-01-19 17:57] LABS: Thyroid Stimulating Hormone 12.526 mcIU/mL (0.340-5.600)
[2018-01-19 17:59] LABS: Bilirubin,Urine Negative (Negative); Blood,Urine Negative (Negative); Clarity,Urine Clear (Clear); Color,Urine Yellow (Yellow); Glucose,Urine (UA) Normal (Normal); Ketones,Urine Negative (Negative); Leukocyte Esterase,Urine Negative (Negative); Nitrite,Urine Negative (Negative); Protein,Urine Negative (Neg-Trace); Specific Gravity,Urine 1.014 (1.010-1.025); Urobilinogen,Urine Normal (Normal)
[2018-01-19] MEDS ORDERED: 0.9 % Sodium Chloride 500 ML IVC ONE (18:11)
[2018-01-19 18:23] LABS: Amphetamine Screen,Urine Negative ng/mL (Cutoff=1000); Barbiturate Screen,Urine Negative ng/mL (Cutoff=200); Benzodiazepines Screen,Urine Negative ng/mL (Cutoff=200); Cannabinoid Screen,Urine Negative ng/mL (Cutoff = 50); Cocaine Screen,Urine Negative ng/mL (Cutoff= 300); Opiate Screen,Urine Negative ng/mL (Cutoff=300); Phencyclidine Screen,Urine Negative ng/mL (Cutoff=25)
[2018-01-19] MEDS ORDERED: Potassium Chloride Elixir 20 MEQ/15 ML UDC PO ONE (20:16)
[2018-01-19] MEDS ORDERED: Ringers Solution, Lactated 1,000 ML IVC SCH (20:30)
[2018-01-19] MEDS ORDERED: traMADol 50 MG TABLET PO PRN (21:50)
[2018-01-19] MEDS ORDERED: Ibuprofen 400 MG TABLET PO PRN (21:50)
[2018-01-19] MEDS ORDERED: Naloxone 0.4 MG/ML INJ IVP PRN (21:50)
--- NOTE | 2018-01-19 21:52 | Internal Med History&Physical ---
<Miguel Mari - Last Filed: 01/19/18 22:19> Date of Encounter: 01/19/18 Time of Encounter: 21:52 Internal Medicine - H&P: HPI Chief complaint: AMS Admitted From: Emergency Dept Plans for Post Hospital Care: Transfer [facility] History of present illness: Ms. 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 Of note, patient is not able to remember many events and no family is present at bedside at time of this interview. She is reportedly a residential resident and per family who was present in the emergency room they state that her memory has been waxing and waning in the recent months to years. During time of this interview, patient is alert and oriented but states she is unable to recall the events of the past couple of days. Her only complaints at this time is a chronic weakness as well as a mild headache. She denies any symptoms of chest pain, shortness breath, fevers, chills, nausea, vomiting, changes in bowel movements or urinary symptoms. Workup in the emergency department shows normal vitals, labs are unremarkable including CKD which appears to be near baseline. Ammonia within normal limits at 37, TSH was elevated at 12.5 however she has had a previous reading less than one month ago showing a TSH of 39. Chest x-ray, head CT, knee and hip x- rays were all within normal limits. Past medical history as above Past surgical history per chart review showing hysterectomy, heart valve replacement, ortho Denies smoking, alcohol, drug use I did discuss with patient in detail regarding her CODE STATUS. She is adamant that she does not want any resuscitative measures or intubation. When asked about further care she states that she would want nothing to prolong her life any further. I discussed the option of DNR comfort care and she is agreeable to this option. She was alert and oriented and answering questions appropriately at that time. Past Med Surg Social Fam HX - Past Medical History Medical history: atrial fibrillation, cirrhosis, CHF, COPD, coronary artery disease, fibromyalgia, GERD, hyperlipidemia, hypertension, osteoporosis Additional medical history: anemia, stage 3 kidney failure. Psychiatric history: anxiety, depression - Past Surgical History Surgical History: heart valve replacement, hysterectomy, orthopedic, other Additional surgical history: Heart cath with stents. Bladder suspension. Neck - Social History Smoking Status: Former smoker Smokeless Tobacco Status: No Alcohol use: none Drug use: none - Family History Mother Living Status: Hx Family Cardiac Disorders: Yes (CAD) Father Living Status: Internal Medicine - H&P: Meds Amiodarone [Cordarone] 200 mg PO DAILY 11/21/17 [History] Aspirin 81 mg PO DAILY 11/21/17 [History] Baclofen [Lioresal] 10 mg PO TID PRN 11/21/17 [History] Cyanocobalamin (Vitamin B-12) [Vitamin B-12] 1,000 mcg PO DAILY 11/21/17 [ History] Ferrous Gluconate 324 mg PO BID 11/21/17 [History] Furosemide [Lasix] 40 mg PO DAILY 11/21/17 [History] Metoprolol [Lopressor] 25 mg PO DAILY 11/21/17 [History] Omeprazole [PriLOSEC] 20 mg PO DAILY 11/21/17 [History] amLODIPine [Norvasc] 5 mg PO DAILY 11/21/17 [History] traZODone [TraZODone] 50 mg PO HS 11/21/17 [History] Bupropion HCl [Wellbutrin Xl] 300 mg PO DAILY 12/30/17 [History] Acetaminophen [Acetaminophen ER] 650 mg PO Q4H PRN 01/19/18 [History] Guaifenesin [Siltussin SA] 10 ml PO Q4H PRN 01/19/18 [History] Levothyroxine [Synthroid] 75 mcg PO DAILY 01/19/18 [History] Oxybutynin Chloride [Ditropan Xl] 10 mg PO DAILY 01/19/18 [History] Potassium Chloride [Klor-Con Sprinkle] 20 meq PO DAILY 01/19/18 [History] Simvastatin [Zocor] 10 mg PO HS 01/19/18 [History] hydrOXYzine HCl [Hydroxyzine HCl] 25 mg PO BID PRN 01/19/18 [History] 3 Allergy/AdvReac Type Severity Reaction Status Date / Time pregabalin [From Lyrica] Allergy Mild Confusion Verified 12/30/17 14:26 ROS unobtainable: due to mental status All Systems PM: A 10-system review of systems was performed and is negative for pertinent findings except as documented above in the HPI. - Constitutional Constitutional: weakness, no chills, no fever(s) - Cardiovascular Cardiovascular ROS IM: no chest pain, no diaphoresis, no dyspnea, no dyspnea on exertion, no edema, no lightheadedness, no palpitations, no syncope - Respiratory Respiratory: no cough, no dyspnea, no dyspnea on exertion - Gastrointestinal Gastrointestinal: no abdominal pain, no constipation, no diarrhea, no heartburn , no nausea, no vomiting - Genitourinary Genitourinary: urinary incontinence, no dysuria, no urinary frequency, no urinary urgency - Integumentary Integumentary IM: no rash - Neurological Neurological ROS: weakness, no numbness, no tingling, no vertigo - Constitutional Vitals: Temp Pulse Resp BP Pulse Ox 98.5 F 57 14 121/54 95 01/19/18 20:03 01/19/18 20:03 01/19/18 20:03 01/19/18 20:03 01/19/18 20:03 Exam: Gen.: Vitals noted. No acute distress. AAOx3. She is able to name the month and year however he does take her some time. She appears fearful and tearful at times. HEENT: PERRL/EOMI, oropharynx clear, Normocephalic, atraumatic, mildly dry mucous membranes Cardiac: Irregular rhythm, no murmur, +S1/S2 Pulmonary: CTA bilaterally, no wheezes, rales or rhonchi, equal chest expansion Abdomen: soft, nontender, BS noted, no guarding, no rebound. Extremities: no BLE edema, nontender calf, no cyanosis or clubbing Neuro: A&Ox3, moves all extremities, no focal deficits Psych: Tearful at times, confused Internal Med - H&P Results - Labs CBC & Chem 7: 01/19/18 17:06 01/19/18 17:06 - Assessment and plan (1) Altered mental status Current Visit: Yes Status: Acute Assessment and plan: - Patient is alert and oriented 4 however does take her some time to answer questions - She states she is unable to remember the past couple of days well - Only current complaints include headache and weakness - No family at bedside however per report this is not unusual for her she does have baseline dementia - Secondary causes including head CT, laboratory results reveal no likely secondary source. - Does not appear to be infectious or hepatic or metabolic encephalopathy Plan - Supportive care, and we will have to discuss with family tomorrow regarding goals of care as well as patient's baseline -Social work consult - PT/OT -Gentle fluids at 75 mL per hour as she does appear clinically dry Qualifiers: Altered mental status type: unspecified Qualified Code(s): R41.82 - Altered mental status, unspecified (2) Goals of care, counseling/discussion Current Visit: Yes Status: Acute Assessment and plan: As in history of present illness did discuss with the patient options us regarding CODE STATUS. She is adamant that she would not like any resuscitative measures or intubation. She states that she does not want any measures that would prolong her life. She is eager to return home as soon as possible. She was in sound mind and my opinion during this time. She was alert and oriented 4 and answer questions appropriately. 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 Chilel is a 77 year old female All Systems PM: A 10-system review of systems was performed and is negative for pertinent findings except as documented above in the HPI. - Constitutional Vitals: Temp Pulse Resp BP Pulse Ox 97.9 F 53 16 109/50 94 01/19/18 22:46 01/19/18 22:46 01/19/18 22:46 01/19/18 22:46 01/19/18 22:46 Internal Med - H&P Results - Labs CBC & Chem 7: 01/19/18 17:06 01/19/18 17:06 - Attending Attestation The patient was seen and examined by me, case discussed in detail with the resident. The patient is a 77-year-old female who is currently residing at a residential alterable comorbidities including anemia for which she gets frequent blood transfusions. She was getting a blood transfusion at the cancer center and from there was referred here for reported altered mental status. Her documentation and discussion with family members her mental status has been terminated poor and declining for a long period of time and is not an acute situation. My examination she denies any acute complaints and only wishes to go back home. She is awake, alert and oriented to person place and time. She has no active complaints at this time. Her labs are grossly unchanged from her baseline and notable for anemia, hypokalemia and acute kidney injury and elevated TSH although this has previously been higher in the past. Her levothyroxine will need to be adjusted to achieve a euthyroid state. We will place her on IV fluids for rehydration and supplement her potassium accordingly. Advanced directives have been established and CODE STATUS indicated accordingly. We will observe her overnight and consult with social economist/case management for assistance in placement. - Time Spent With Patient Total time spent is greater than 50% in coordination of care (as documented) at patient's floor/unit and/or counseling patient:
[2018-01-19] MEDS ORDERED: hydrOXYzine pamoate 25 MG CAPSULE PO PRN (22:35)
[2018-01-19] MEDS ORDERED: Baclofen 10 MG TABLET PO PRN (22:35)
[2018-01-19] MEDS ORDERED: GuaiFENesin Liq 200 MG/10 ML UDC PO PRN (22:35)
[2018-01-20] MEDS ORDERED: Mag Hydrox/Al Hydrox/Simeth 30 ML UDC PO ONE (03:56)
[2018-01-20 06:31] LABS: Basophils % 0.6 %; Eosinophils # 0.1 K/mcL (0.0-0.6); Hematocrit 29.9 % (35.3-44.9); Hemoglobin 9.5 g/dL (11.5-15.4); Immature Granulocytes % 1.2 % (0-4); Lymphocytes # 0.5 K/mcL (0.6-4.6); Lymphocytes % 15.9 %; Mean Corpuscular HGB Conc 31.8 g/dL (31.6-35.5); Mean Corpuscular Hemoglobin 31.1 pg (28.0-33.3); Monocytes # 0.4 K/mcL (0.0-1.3); Monocytes % 13.1 %; Neutrophils # 2.2 K/mcL (1.6-8.9); Red Blood Count 3.05 M/mcL (3.82-4.97); Red Cell Distribution Width 17.7 % (11.5-14.5); Segmented Neutrophils % 66.2 %
[2018-01-20 06:33] LABS: Platelet Count 89 K/mcL (140-400)
[2018-01-20 06:50] LABS: Calcium 8.8 mg/dL (8.6-10.3); Potassium 3.4 mEq/L (3.5-5.1)
[2018-01-20] MEDS ORDERED: amLODIPine 5 MG TABLET PO SCH (09:00)
[2018-01-20] MEDS ORDERED: Potassium Chloride Elixir 20 MEQ/15 ML UDC PO SCH (09:00)
[2018-01-20] MEDS ORDERED: Furosemide 40 MG TABLET PO SCH (09:00)
[2018-01-20] MEDS ORDERED: Aspirin 81 MG TAB.CHEW PO SCH (09:00)
[2018-01-20] MEDS ORDERED: Cyanocobalamin (B-12) 1,000 MCG TABLET PO SCH (09:00)
[2018-01-20] MEDS ORDERED: *HR* Amiodarone 200 MG TABLET PO SCH (09:00)
[2018-01-20] MEDS ORDERED: BuPROPion XL (24 HR) 150 MG TABLET PO SCH (09:00)
[2018-01-20 11:29] VITALS: BP 112/62
--- NOTE | 2018-01-20 14:38 | Discharge Summary ---
Date of Encounter: 01/20/18 Time of Encounter: 10:45 - Discharge Diagnosis (1) DVT prophylaxis Priority: Secondary Status: Acute Assessment and Plan: History of pancytopenia Not on anticoagulation due to high risk for falls SCDs ordered, pt is declining due to neuropathy (2) A-fib Priority: Secondary Status: Chronic Assessment and Plan: Rate controlled this time Not anticoagulated due to high risk of falls and pancytopenia Continue BB, aspirin Qualifiers: Atrial fibrillation type: chronic Qualified Code(s): I48.2 - Chronic atrial fibrillation (3) Pancytopenia Priority: Secondary Status: Chronic Assessment and Plan: Chronic. Secondary to cirrhosis, secondary to QUIÑONEZ Labs at baseline. (4) Altered mental status Priority: Secondary Status: Acute Assessment and Plan: - Patient is alert and oriented to name, place, month, president, but states that she is at a rehab facility - Only current complaint is weakness. PT/OT recommends PT at [facility], pt is a resident at - No family at bedside however per report this is not unusual for her she does have baseline dementia - Secondary causes including head CT, laboratory results reveal no likely secondary source. - Does not appear to be infectious or hepatic or metabolic encephalopathy, pt appears to be at baseline. Plan Pt will return to [facility] where she is a resident. Qualifiers: Altered mental status type: unspecified Qualified Code(s): R41.82 - Altered mental status, unspecified (5) Goals of care, counseling/discussion Priority: Secondary Status: Acute Assessment and Plan: She is adamant that she would not like any resuscitative measures or intubation. She states that she does not want any measures that would prolong her life. She is eager to return home as soon as possible. She was in sound mind and my opinion during this time. She was alert and oriented 4 and answer questions appropriately. 01/20/18- Pt maintains that she still wants to be a DNR. Pt is alert and awake and answers quesitons appropriately. Again, she states that she wants to go back home. Hospital course: Ms. Chilel is a 77 year old female with past medical history of chronic anemia , hypertension, coronary artery disease, GI bleed, COPD, A. fib RVR, chronic kidney disease stage III, AR, prosthetic aortic valve stenosis, A. fib, CHF, chronic pancytopenia, QUIÑONEZ, cirrhosis. Patient was [facility] from a [facility] where she is a patient for altered mental status. Family reports fluctuant memory over the last few months. During assessment and the emergency department, patient has short-term memory loss which is congruent with diagnosis of dementia. Patient initially reported chronic weakness as well as mild headache. Labs and vitals were all stable and within normal limits, TSH was elevated, though it is improved from reading and month ago. Her ammonia is within normal limits, she does not appear to have any metabolic cause for her mental status change. Upon assessment today, patient is alert, oriented, answers questions appropriately and states that she wants to go home. Chest x-ray, head CT negative. Patient has chronic pancytopenia, labs are stable and at her baseline. CKD improved overnight, serum creatinine is 1.30, GFR is 40. Her vitals are stable and within normal limits. She is going to be discharged in stable condition back to [facility]. Discharge discussed with: nurse, case management - Time Spent with Patient Total time spent providing and/or coordinating discharge services: Less than 30 minutes - Discharge Medications Home Medications: Amiodarone [Cordarone] 200 mg PO DAILY 11/21/17 [History] Aspirin 81 mg PO DAILY 11/21/17 [History] Baclofen [Lioresal] 10 mg PO TID PRN 11/21/17 [History] Cyanocobalamin (Vitamin B-12) [Vitamin B-12] 1,000 mcg PO DAILY 11/21/17 [ History] Ferrous Gluconate 324 mg PO BID 11/21/17 [History] Furosemide [Lasix] 40 mg PO DAILY 11/21/17 [History] Metoprolol [Lopressor] 25 mg PO DAILY 11/21/17 [History] Omeprazole [PriLOSEC] 20 mg PO DAILY 11/21/17 [History] amLODIPine [Norvasc] 5 mg PO DAILY 11/21/17 [History] traZODone [TraZODone] 50 mg PO HS 11/21/17 [History] Bupropion HCl [Wellbutrin Xl] 300 mg PO DAILY 12/30/17 [History] Acetaminophen [Acetaminophen ER] 650 mg PO Q4H PRN 01/19/18 [History] Guaifenesin [Siltussin SA] 10 ml PO Q4H PRN 01/19/18 [History] Levothyroxine [Synthroid] 75 mcg PO DAILY 01/19/18 [History] Oxybutynin Chloride [Ditropan Xl] 10 mg PO DAILY 01/19/18 [History] Potassium Chloride [Klor-Con Sprinkle] 20 meq PO DAILY 01/19/18 [History] Simvastatin [Zocor] 10 mg PO HS 01/19/18 [History] hydrOXYzine HCl [Hydroxyzine HCl] 25 mg PO BID PRN 01/19/18 [History] Allergies/Adverse Reactions: 3 Allergy/AdvReac Type Severity Reaction Status Date / Time pregabalin [From Lyrica] Allergy Mild Confusion Verified 12/30/17 14:26 Date of admission: 01/19/18 18:37 Primary care physician: Titi Garcia DO Consults: 01/19/18 21:52 Consult to Gunnery/Ordnance Officer [CONS] Routine Reason for SW Consult: placement, discharge needs. 01/19/18 22:37 Consult to Occupational Therapy [CONS] Routine Comment: Evaluate, develop and implement POC Reason for Consult: weakness, placement Does patient have active BEDREST order?: No Is patient medically & hemodynamically stable?: Yes Patient assessed for mobility or mobilized this visit?: No Consult to Physical Therapy [CONS] Routine Comment: Evaluate, develop and implement POC Reason for Consult: weakness, placement Does patient have active BEDREST order?: No Is patient medically & hemodynamically stable?: Yes Patient assessed for mobility or mobilized this visit?: No Discharging clinician: Asuncion Morales Anticipated date of discharge: 01/20/18 - Constitutional Vitals: Temp Pulse Resp BP Pulse Ox 98.3 F 53 17 112/62 95 01/20/18 11:25 01/20/18 11:25 01/20/18 11:25 01/20/18 11:25 01/20/18 11:25 General appearance: Present: cooperative, A&O X 3, pleasant, no acute distress, answers questions appropriately - Head Head exam: Present: atraumatic, normal inspection, normocephalic - Eye Eye exam: Present: EOMI, normal appearance, conjuntiva pink, sclera anicteric. Absent: nystagmus - Neck Neck exam general surgery: Present: normal inspection, supple, trachea midline. Absent: lymphadenopathy, tenderness - Respiratory Respiratory exam: Present: CTAB. Absent: accessory muscle use, chest wall tenderness, rales, respiratory distress, rhonchi, wheezes - Cardiovascular Cardiovascular exam: Present: RRR, +S1, +S2. Absent: diastolic murmur, gallop, rubs, systolic murmur - GI/Abdominal GI/Abdominal exam: Present: normal bowel sounds, soft. Absent: distended, hepatomegaly, tenderness - Extremities Exam Extremities exam: Present: normal capillary refill, normal inspection, warm, radial pulses palpable and symmetrical. Absent: calf tenderness, cyanotic, pedal edema, tenderness - Neurological Exam Neurological exam: Present: alert, normal gait, oriented X3, no focal deficits, strengths equal and symetr throughout. Absent: facial droop, speech deficit - Skin Skin exam: Present: dry, intact, normal color, warm. Absent: rash - Patient Status Disposition: Transfer SNF Condition: Good Functional capacity at discharge: uses cane/walker Overall status at discharge: patient is progressing back to baseline - Discharge Instructions Follow Up With: Titi Garcia DO [Primary Care Provider] - - Diet and Activity Activity: as per physical therapy Diet: advance to your usual diet
[2018-01-20] MEDS ORDERED: Ondansetron 4 MG/2 ML VIAL IVP ONE (14:57)
--- NOTE | 2018-01-20 15:18 | Physician Discharge Referral ---
ExtendedCare Referral Info Transfer To: [facility] Provider in Charge after Transfer: PCP Institutional Level of Care: Intermediate - Diagnosis (1) DVT prophylaxis Priority: Secondary Status: Acute (2) A-fib Priority: Secondary Status: Chronic (3) Pancytopenia Priority: Secondary Status: Chronic (4) Altered mental status Priority: Secondary Status: Acute (5) Goals of care, counseling/discussion Priority: Secondary Status: Acute Prognosis: Fair - Transfer Medications Home Medications: Amiodarone [Cordarone] 200 mg PO DAILY 11/21/17 [History] Aspirin 81 mg PO DAILY 11/21/17 [History] Baclofen [Lioresal] 10 mg PO TID PRN 11/21/17 [History] Cyanocobalamin (Vitamin B-12) [Vitamin B-12] 1,000 mcg PO DAILY 11/21/17 [ History] Ferrous Gluconate 324 mg PO BID 11/21/17 [History] Furosemide [Lasix] 40 mg PO DAILY 11/21/17 [History] Metoprolol [Lopressor] 25 mg PO DAILY 11/21/17 [History] Omeprazole [PriLOSEC] 20 mg PO DAILY 11/21/17 [History] amLODIPine [Norvasc] 5 mg PO DAILY 11/21/17 [History] traZODone [TraZODone] 50 mg PO HS 11/21/17 [History] Bupropion HCl [Wellbutrin Xl] 300 mg PO DAILY 12/30/17 [History] Acetaminophen [Acetaminophen ER] 650 mg PO Q4H PRN 01/19/18 [History] Guaifenesin [Siltussin SA] 10 ml PO Q4H PRN 01/19/18 [History] Levothyroxine [Synthroid] 75 mcg PO DAILY 01/19/18 [History] Oxybutynin Chloride [Ditropan Xl] 10 mg PO DAILY 01/19/18 [History] Potassium Chloride [Klor-Con Sprinkle] 20 meq PO DAILY 01/19/18 [History] Simvastatin [Zocor] 10 mg PO HS 01/19/18 [History] hydrOXYzine HCl [Hydroxyzine HCl] 25 mg PO BID PRN 01/19/18 [History] Allergies/Adverse Reactions: 3 Allergy/AdvReac Type Severity Reaction Status Date / Time pregabalin [From Lyrica] Allergy Mild Confusion Verified 12/30/17 14:26 - Respiratory Orders Smoking Cessation: Smoking cessation has been advised. For more information, call the [place] Tobacco Quit Line at 9-352-MAEG-NOW. - Lab Orders Lab Orders: 2 Step Mantoux Test per State regulation, CBC, U/A, Sorin 17, CXR yearly - Ancillary Orders May use pressure relief devices daily prn, May go on DIAMOND w/family/respon democrat w /meds at nurse discretion PRN, May consult with Dentist, Pipe Manufacture Supervisor, Loan Manager PRN - Advance Directives Code Status: DNR-Comfort Care - Mobility Orders Ambulate - Rehabiliation Orders Rehab Orders: Sternal Precautions, ROM Exercises, Evaluation for Physical Therapy, Evaluation for Occupational Therapy - Treatments Skin tear care topically daily PRN per policy, May check for fecal impaction rectally daily PRN, Fleet enema rectally every other day PRN cleansing purposes CERTIFICATION: I certify that the transfer of the above named patient to an Extended Care Facility is necessary for the continuing treatment of the diagnosis listed. The above information is true and accurate reflection of patient's current condition. Confidential - Redisclosure prohibited without a patient's written consent.
--- NOTE | 2018-01-21 02:16 | Electrocardiograph Report ---
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
== END 2018-01-20 15:58 ==
LOC: 3BNU 16:17 → EMEROO 16:17 → 3BNU 19:40
PROVIDERS: ADMIT Pediatrics; ATTEND Pediatrics